=== PATIENT | female | born 1950 | race Caucasian/White ===

== ENCOUNTER 2017-10-14 12:20 | Day surgery (SDC) | payer OTHER ==
[~2017-10-14 12:20] MED LIST: ACET325 PO; ALBU3IS INH; ALBU90OI INH; ALBU90OI6 INH; ALUMINUM HYDROXIDE PO; AMLO5 PO; ASCO250CH PO; ATELVIA; BUME1 PO; BUME2 PO; BUMEX; BUPR150ER PO; CALCAVITD PO; CEFD300 PO; CEPH500; CEPH500 PO; CITA20 PO; CLIN150 PO; CLON.2; CLON.2 PO; CLON.3 PO; CLON.5 PO; CYCL10 PO; Coumadin2.5 MG; DIAZ5 PO; DOCSEN PO; DOCU100 PO; DULO30 PO; DULO60 PO; ENOX120I SUBQ; Effer-K 10 Meq10 MEQ; FENTANYL PATCH TD; FERR325 PO; FISH1000 PO; FLUT.05NI; FOSI10; FOSI10 PO; FURO40 PO; GABA100 PO; GABA300 PO; GAVILAX17 GM PO; GLYB2.5 PO; GLYB5; GLYB5 PO; GUAN1; GUANFACINE; HYDACE10B PO; HYDACE5 PO; INSDET100 SC; INSR10I SUBQ; INSUASPI SC; INSULANI SUBQ; INSULANPEN SQ; IRON150C PO; Keflex500 MG PO; LAVAP17G PO; LEVO750 PO; LEVSOD125 PO; LEVSOD200; LEVSOD200 PO; LORA10 PO; LORA10ER PO; MAALOX PO; MAGOXI400 PO; MECL25 PO; METF500; METF500 PO; METO2.5 PO; METO25ER PO; METPRE4DP PO; MIRT30; MIRT30 PO; MOME220I INH; MONT10T PO; MORP15ER PO; MULVITMIND PO; MULVITMINF PO; Meribin5 MG PO; NABU750; NAPR550 PO; NATE60; Norco 5-325 Ta1 EACH PO; Novolog100 UNIT/2; OMEP20ER PO; ONDA4ODT MM; OXYACE5T PO; PANT40 PO; PIOG15; POLY17UD PO; POTA10T PO; POTA20PAC PO; POTA8; POTCHL10ER PO; POTCHL20ER PO; PRAV20 PO; PRED20 PO; PROAIR INH; PROM25 PO; QVAR INH; QVAR7.3 G1 IH; RANI150 PO; RXHYDACE PO; RXNAPNA550 PO; RXONDA4ODT MM; SPIR25 PO; SULTRIDS PO; Synthroid/Le0.125 MG PO; TEMA15 PO; TENEX PO; TRADJENTA PO; TRADJENTA5 MG PO; TRIHYD253A; WARF10 PO; WARF5 PO; XARELTO20 MG PO
[2018-01-30] MEDS ORDERED: Novolin R100 UNIT/M SC (16:44)
[2018-01-30] MEDS ORDERED: Percocet 5-3251 EACH PO (16:47)
[2018-02-08] MEDS ORDERED: DOCU100 PO (16:03)
[2018-02-08] MEDS ORDERED: ALLO100 PO (16:04)
[2018-02-08] MEDS ORDERED: GAVILAX17 GM PO (16:07)
[2018-02-15] MEDS ORDERED: CITA20 PO (20:46)
[2018-02-15] MEDS ORDERED: BUME1 PO (20:46)
[2018-02-15] MEDS ORDERED: PREG25 PO (20:47)
[2018-02-15] MEDS ORDERED: METO25ER (20:47)
[2018-02-15] MEDS ORDERED: IRON150C (20:47)
[2018-02-15] MEDS ORDERED: LEVSOD125 PO (20:47)
[2018-02-15] MEDS ORDERED: Zantac150 MG PO (20:48)
[2018-02-15] MEDS ORDERED: AMLO10 PO (20:48)
[2018-02-15] MEDS ORDERED: XARELTO15 MG PO (20:48)
[2018-02-15] MEDS ORDERED: ALLO100 (20:48)
[2018-04-12] MEDS ORDERED: TUMS PO (19:59)
[2018-07-21] MEDS ORDERED: Percocet 5-3251 EACH PO (20:03)
[2018-07-21] MEDS ORDERED: Lantus100 UNIT/1 SC (20:04)
[2018-07-21] MEDS ORDERED: TRADJENTA5 MG PO (20:04)
[2018-07-21] MEDS ORDERED: XARELTO20 MG PO (20:04)
[2018-07-21] MEDS ORDERED: LEVSOD125 PO (20:05)
[2018-07-21] MEDS ORDERED: AMLO5 PO (20:05)
[2018-07-21] MEDS ORDERED: BUME2 PO (20:05)
[2018-07-21] MEDS ORDERED: K-Dur20 MEQ PO (20:05)
[2018-07-21] MEDS ORDERED: Celexa40 MG PO (20:06)
[2018-07-21] MEDS ORDERED: PROM25 PO (20:06)
[2018-07-21] MEDS ORDERED: Pantoprazole So40 MG PO (20:06)
[2018-07-21] MEDS ORDERED: METO25ER PO (20:07)
[2018-07-21] MEDS ORDERED: ROPI2 PO (20:08)
[2018-07-21] MEDS ORDERED: CALC.25 PO (20:09)
[2018-07-21] MEDS ORDERED: LACT5TL (20:10)
[2018-07-21] MEDS ORDERED: METO2.5 PO (20:10)
[2018-07-21] MEDS ORDERED: Triamcinolone A15 G3 TP (20:10)
[2018-07-21] MEDS ORDERED: VITAMIN B122500 MC1 PO (20:10)
[2018-07-21] MEDS ORDERED: PREG50 PO (20:11)
[2018-07-21] MEDS ORDERED: ALLO300 PO (20:12)
[2018-07-21] MEDS ORDERED: CLOBET30L (20:12)
[2018-07-21] MEDS ORDERED: Flonase 0.05% N16 GM (20:13)
[2018-07-21] MEDS ORDERED: CLARITIN10 MG PO (20:13)
[2018-07-21] MEDS ORDERED: ALBU90OI6 INH (20:13)
[2018-08-03] MEDS ORDERED: Culturelle1 CAP PO (15:13)
[2018-08-03] MEDS ORDERED: VANC125 PO (15:14)
[2018-08-03] MEDS ORDERED: VANCOMYCIN1.5 GM/250 IV (15:18)
[2018-08-08] MEDS ORDERED: LEVSOD137 PO (12:08)
[2018-08-08] MEDS ORDERED: METO50ER PO (12:09)
[2018-08-08] MEDS ORDERED: XARELTO15 MG PO (12:10)
[2018-08-08] MEDS ORDERED: LOPE2C PO (12:11)
[2018-09-13] MEDS ORDERED: XARELTO20 MG PO (11:51)
== END 2017-10-14 17:16 | disposition home or self-care (01) ==
LOC: WOUND 12:20
DX: Z48.00 Encounter for change or removal of nonsurgical wound dressing (principal); E11.621 Type 2 diabetes mellitus with foot ulcer; E11.21 Type 2 diabetes mellitus with diabetic nephropathy; E11.22 Type 2 diabetes mellitus with diabetic chronic kidney disease; I87.2 Venous insufficiency (chronic) (peripheral); R60.0 Localized edema; I89.0 Lymphedema, not elsewhere classified; G47.30 Sleep apnea, unspecified; I48.91 Unspecified atrial fibrillation
CPT/HCPCS: G0463

== ENCOUNTER 2017-10-16 11:00 | Day surgery (SDC) | payer OTHER ==
[2018-01-30] MEDS ORDERED: Novolin R100 UNIT/M SC (16:44)
[2018-01-30] MEDS ORDERED: Percocet 5-3251 EACH PO (16:47)
[2018-02-08] MEDS ORDERED: DOCU100 PO (16:03)
[2018-02-08] MEDS ORDERED: ALLO100 PO (16:04)
[2018-02-08] MEDS ORDERED: GAVILAX17 GM PO (16:07)
[2018-02-15] MEDS ORDERED: BUME1 PO (20:46)
[2018-02-15] MEDS ORDERED: CITA20 PO (20:46)
[2018-02-15] MEDS ORDERED: PREG25 PO (20:47)
[2018-02-15] MEDS ORDERED: METO25ER (20:47)
[2018-02-15] MEDS ORDERED: LEVSOD125 PO (20:47)
[2018-02-15] MEDS ORDERED: IRON150C (20:47)
[2018-02-15] MEDS ORDERED: XARELTO15 MG PO (20:48)
[2018-02-15] MEDS ORDERED: AMLO10 PO (20:48)
[2018-02-15] MEDS ORDERED: ALLO100 (20:48)
[2018-02-15] MEDS ORDERED: Zantac150 MG PO (20:48)
[2018-04-12] MEDS ORDERED: TUMS PO (19:59)
[2018-07-21] MEDS ORDERED: Percocet 5-3251 EACH PO (20:03)
[2018-07-21] MEDS ORDERED: XARELTO20 MG PO (20:04)
[2018-07-21] MEDS ORDERED: Lantus100 UNIT/1 SC (20:04)
[2018-07-21] MEDS ORDERED: TRADJENTA5 MG PO (20:04)
[2018-07-21] MEDS ORDERED: AMLO5 PO (20:05)
[2018-07-21] MEDS ORDERED: BUME2 PO (20:05)
[2018-07-21] MEDS ORDERED: LEVSOD125 PO (20:05)
[2018-07-21] MEDS ORDERED: K-Dur20 MEQ PO (20:05)
[2018-07-21] MEDS ORDERED: Pantoprazole So40 MG PO (20:06)
[2018-07-21] MEDS ORDERED: PROM25 PO (20:06)
[2018-07-21] MEDS ORDERED: Celexa40 MG PO (20:06)
[2018-07-21] MEDS ORDERED: METO25ER PO (20:07)
[2018-07-21] MEDS ORDERED: ROPI2 PO (20:08)
[2018-07-21] MEDS ORDERED: CALC.25 PO (20:09)
[2018-07-21] MEDS ORDERED: LACT5TL (20:10)
[2018-07-21] MEDS ORDERED: METO2.5 PO (20:10)
[2018-07-21] MEDS ORDERED: Triamcinolone A15 G3 TP (20:10)
[2018-07-21] MEDS ORDERED: VITAMIN B122500 MC1 PO (20:10)
[2018-07-21] MEDS ORDERED: PREG50 PO (20:11)
[2018-07-21] MEDS ORDERED: ALLO300 PO (20:12)
[2018-07-21] MEDS ORDERED: CLOBET30L (20:12)
[2018-07-21] MEDS ORDERED: ALBU90OI6 INH (20:13)
[2018-07-21] MEDS ORDERED: CLARITIN10 MG PO (20:13)
[2018-07-21] MEDS ORDERED: Flonase 0.05% N16 GM (20:13)
[2018-08-03] MEDS ORDERED: Culturelle1 CAP PO (15:13)
[2018-08-03] MEDS ORDERED: VANC125 PO (15:14)
[2018-08-03] MEDS ORDERED: VANCOMYCIN1.5 GM/250 IV (15:18)
[2018-08-08] MEDS ORDERED: LEVSOD137 PO (12:08)
[2018-08-08] MEDS ORDERED: METO50ER PO (12:09)
[2018-08-08] MEDS ORDERED: XARELTO15 MG PO (12:10)
[2018-08-08] MEDS ORDERED: LOPE2C PO (12:11)
[2018-09-13] MEDS ORDERED: XARELTO20 MG PO (11:51)
== END 2017-10-16 17:06 | disposition home or self-care (01) ==
LOC: WOUND
DX: I87.2 Venous insufficiency (chronic) (peripheral) (principal); E11.621 Type 2 diabetes mellitus with foot ulcer; L97.229 Non-pressure chronic ulcer of left calf with unspecified severity; E11.21 Type 2 diabetes mellitus with diabetic nephropathy; R60.0 Localized edema; I89.0 Lymphedema, not elsewhere classified; D64.9 Anemia, unspecified; G47.30 Sleep apnea, unspecified; I82.5Z9 Chronic embolism and thrombosis of unspecified deep veins of unspecified distal lower extremity

== ENCOUNTER 2017-10-20 14:20 | Day surgery (SDC) | payer OTHER ==
[2018-01-30] MEDS ORDERED: Novolin R100 UNIT/M SC (16:44)
[2018-01-30] MEDS ORDERED: Percocet 5-3251 EACH PO (16:47)
[2018-02-08] MEDS ORDERED: DOCU100 PO (16:03)
[2018-02-08] MEDS ORDERED: ALLO100 PO (16:04)
[2018-02-08] MEDS ORDERED: GAVILAX17 GM PO (16:07)
[2018-02-15] MEDS ORDERED: CITA20 PO (20:46)
[2018-02-15] MEDS ORDERED: BUME1 PO (20:46)
[2018-02-15] MEDS ORDERED: IRON150C (20:47)
[2018-02-15] MEDS ORDERED: PREG25 PO (20:47)
[2018-02-15] MEDS ORDERED: LEVSOD125 PO (20:47)
[2018-02-15] MEDS ORDERED: METO25ER (20:47)
[2018-02-15] MEDS ORDERED: ALLO100 (20:48)
[2018-02-15] MEDS ORDERED: XARELTO15 MG PO (20:48)
[2018-02-15] MEDS ORDERED: AMLO10 PO (20:48)
[2018-02-15] MEDS ORDERED: Zantac150 MG PO (20:48)
[2018-04-12] MEDS ORDERED: TUMS PO (19:59)
[2018-07-21] MEDS ORDERED: Percocet 5-3251 EACH PO (20:03)
[2018-07-21] MEDS ORDERED: Lantus100 UNIT/1 SC (20:04)
[2018-07-21] MEDS ORDERED: TRADJENTA5 MG PO (20:04)
[2018-07-21] MEDS ORDERED: XARELTO20 MG PO (20:04)
[2018-07-21] MEDS ORDERED: K-Dur20 MEQ PO (20:05)
[2018-07-21] MEDS ORDERED: AMLO5 PO (20:05)
[2018-07-21] MEDS ORDERED: BUME2 PO (20:05)
[2018-07-21] MEDS ORDERED: LEVSOD125 PO (20:05)
[2018-07-21] MEDS ORDERED: Pantoprazole So40 MG PO (20:06)
[2018-07-21] MEDS ORDERED: PROM25 PO (20:06)
[2018-07-21] MEDS ORDERED: Celexa40 MG PO (20:06)
[2018-07-21] MEDS ORDERED: METO25ER PO (20:07)
[2018-07-21] MEDS ORDERED: ROPI2 PO (20:08)
[2018-07-21] MEDS ORDERED: CALC.25 PO (20:09)
[2018-07-21] MEDS ORDERED: LACT5TL (20:10)
[2018-07-21] MEDS ORDERED: VITAMIN B122500 MC1 PO (20:10)
[2018-07-21] MEDS ORDERED: METO2.5 PO (20:10)
[2018-07-21] MEDS ORDERED: Triamcinolone A15 G3 TP (20:10)
[2018-07-21] MEDS ORDERED: PREG50 PO (20:11)
[2018-07-21] MEDS ORDERED: CLOBET30L (20:12)
[2018-07-21] MEDS ORDERED: ALLO300 PO (20:12)
[2018-07-21] MEDS ORDERED: ALBU90OI6 INH (20:13)
[2018-07-21] MEDS ORDERED: CLARITIN10 MG PO (20:13)
[2018-07-21] MEDS ORDERED: Flonase 0.05% N16 GM (20:13)
[2018-08-03] MEDS ORDERED: Culturelle1 CAP PO (15:13)
[2018-08-03] MEDS ORDERED: VANC125 PO (15:14)
[2018-08-03] MEDS ORDERED: VANCOMYCIN1.5 GM/250 IV (15:18)
[2018-08-08] MEDS ORDERED: LEVSOD137 PO (12:08)
[2018-08-08] MEDS ORDERED: METO50ER PO (12:09)
[2018-08-08] MEDS ORDERED: XARELTO15 MG PO (12:10)
[2018-08-08] MEDS ORDERED: LOPE2C PO (12:11)
[2018-09-13] MEDS ORDERED: XARELTO20 MG PO (11:51)
== END 2017-10-20 15:57 | disposition home or self-care (01) ==
LOC: WOUND 14:20
PROC: 2W1RX6Z Compression of Left Lower Leg using Pressure Dressing (ICD-10-PCS; principal; 2017-10-20)
DX: Z48.00 Encounter for change or removal of nonsurgical wound dressing (principal); E11.621 Type 2 diabetes mellitus with foot ulcer; I87.2 Venous insufficiency (chronic) (peripheral); I82.5Z1 Chronic embolism and thrombosis of unspecified deep veins of right distal lower extremity; I89.0 Lymphedema, not elsewhere classified; D64.9 Anemia, unspecified; G47.30 Sleep apnea, unspecified; I48.91 Unspecified atrial fibrillation; E11.21 Type 2 diabetes mellitus with diabetic nephropathy; R60.0 Localized edema; E11.622 Type 2 diabetes mellitus with other skin ulcer; L97.821 Non-pressure chronic ulcer of other part of left lower leg limited to breakdown of skin; L97.819 Non-pressure chronic ulcer of other part of right lower leg with unspecified severity; L97.529 Non-pressure chronic ulcer of other part of left foot with unspecified severity
CPT/HCPCS: G0463

== ENCOUNTER 2017-10-27 08:40 | Day surgery (SDC) | payer OTHER ==
[2018-01-30] MEDS ORDERED: Novolin R100 UNIT/M SC (16:44)
[2018-01-30] MEDS ORDERED: Percocet 5-3251 EACH PO (16:47)
[2018-02-08] MEDS ORDERED: DOCU100 PO (16:03)
[2018-02-08] MEDS ORDERED: ALLO100 PO (16:04)
[2018-02-08] MEDS ORDERED: GAVILAX17 GM PO (16:07)
[2018-02-15] MEDS ORDERED: CITA20 PO (20:46)
[2018-02-15] MEDS ORDERED: BUME1 PO (20:46)
[2018-02-15] MEDS ORDERED: IRON150C (20:47)
[2018-02-15] MEDS ORDERED: PREG25 PO (20:47)
[2018-02-15] MEDS ORDERED: LEVSOD125 PO (20:47)
[2018-02-15] MEDS ORDERED: METO25ER (20:47)
[2018-02-15] MEDS ORDERED: XARELTO15 MG PO (20:48)
[2018-02-15] MEDS ORDERED: AMLO10 PO (20:48)
[2018-02-15] MEDS ORDERED: ALLO100 (20:48)
[2018-02-15] MEDS ORDERED: Zantac150 MG PO (20:48)
[2018-04-12] MEDS ORDERED: TUMS PO (19:59)
[2018-07-21] MEDS ORDERED: Percocet 5-3251 EACH PO (20:03)
[2018-07-21] MEDS ORDERED: Lantus100 UNIT/1 SC (20:04)
[2018-07-21] MEDS ORDERED: TRADJENTA5 MG PO (20:04)
[2018-07-21] MEDS ORDERED: XARELTO20 MG PO (20:04)
[2018-07-21] MEDS ORDERED: AMLO5 PO (20:05)
[2018-07-21] MEDS ORDERED: LEVSOD125 PO (20:05)
[2018-07-21] MEDS ORDERED: BUME2 PO (20:05)
[2018-07-21] MEDS ORDERED: K-Dur20 MEQ PO (20:05)
[2018-07-21] MEDS ORDERED: PROM25 PO (20:06)
[2018-07-21] MEDS ORDERED: Pantoprazole So40 MG PO (20:06)
[2018-07-21] MEDS ORDERED: Celexa40 MG PO (20:06)
[2018-07-21] MEDS ORDERED: METO25ER PO (20:07)
[2018-07-21] MEDS ORDERED: ROPI2 PO (20:08)
[2018-07-21] MEDS ORDERED: CALC.25 PO (20:09)
[2018-07-21] MEDS ORDERED: METO2.5 PO (20:10)
[2018-07-21] MEDS ORDERED: Triamcinolone A15 G3 TP (20:10)
[2018-07-21] MEDS ORDERED: VITAMIN B122500 MC1 PO (20:10)
[2018-07-21] MEDS ORDERED: LACT5TL (20:10)
[2018-07-21] MEDS ORDERED: PREG50 PO (20:11)
[2018-07-21] MEDS ORDERED: ALLO300 PO (20:12)
[2018-07-21] MEDS ORDERED: CLOBET30L (20:12)
[2018-07-21] MEDS ORDERED: Flonase 0.05% N16 GM (20:13)
[2018-07-21] MEDS ORDERED: ALBU90OI6 INH (20:13)
[2018-07-21] MEDS ORDERED: CLARITIN10 MG PO (20:13)
[2018-08-03] MEDS ORDERED: Culturelle1 CAP PO (15:13)
[2018-08-03] MEDS ORDERED: VANC125 PO (15:14)
[2018-08-03] MEDS ORDERED: VANCOMYCIN1.5 GM/250 IV (15:18)
[2018-08-08] MEDS ORDERED: LEVSOD137 PO (12:08)
[2018-08-08] MEDS ORDERED: METO50ER PO (12:09)
[2018-08-08] MEDS ORDERED: XARELTO15 MG PO (12:10)
[2018-08-08] MEDS ORDERED: LOPE2C PO (12:11)
[2018-09-13] MEDS ORDERED: XARELTO20 MG PO (11:51)
== END 2017-10-27 11:03 | disposition home or self-care (01) ==
LOC: WOUND 08:40
PROC: 2W1RX6Z Compression of Left Lower Leg using Pressure Dressing (ICD-10-PCS; principal; 2017-10-27)
DX: Z48.00 Encounter for change or removal of nonsurgical wound dressing (principal); I87.2 Venous insufficiency (chronic) (peripheral); E11.22 Type 2 diabetes mellitus with diabetic chronic kidney disease; E11.621 Type 2 diabetes mellitus with foot ulcer; E11.21 Type 2 diabetes mellitus with diabetic nephropathy; R60.0 Localized edema; I89.0 Lymphedema, not elsewhere classified; G47.30 Sleep apnea, unspecified; I48.91 Unspecified atrial fibrillation
CPT/HCPCS: G0463

== ENCOUNTER 2017-11-10 07:57 | Day surgery (SDC) | payer OTHER ==
[2018-01-30] MEDS ORDERED: Novolin R100 UNIT/M SC (16:44)
[2018-01-30] MEDS ORDERED: Percocet 5-3251 EACH PO (16:47)
[2018-02-08] MEDS ORDERED: DOCU100 PO (16:03)
[2018-02-08] MEDS ORDERED: ALLO100 PO (16:04)
[2018-02-08] MEDS ORDERED: GAVILAX17 GM PO (16:07)
[2018-02-15] MEDS ORDERED: BUME1 PO (20:46)
[2018-02-15] MEDS ORDERED: CITA20 PO (20:46)
[2018-02-15] MEDS ORDERED: METO25ER (20:47)
[2018-02-15] MEDS ORDERED: IRON150C (20:47)
[2018-02-15] MEDS ORDERED: PREG25 PO (20:47)
[2018-02-15] MEDS ORDERED: LEVSOD125 PO (20:47)
[2018-02-15] MEDS ORDERED: Zantac150 MG PO (20:48)
[2018-02-15] MEDS ORDERED: ALLO100 (20:48)
[2018-02-15] MEDS ORDERED: AMLO10 PO (20:48)
[2018-02-15] MEDS ORDERED: XARELTO15 MG PO (20:48)
[2018-04-12] MEDS ORDERED: TUMS PO (19:59)
[2018-07-21] MEDS ORDERED: Percocet 5-3251 EACH PO (20:03)
[2018-07-21] MEDS ORDERED: XARELTO20 MG PO (20:04)
[2018-07-21] MEDS ORDERED: Lantus100 UNIT/1 SC (20:04)
[2018-07-21] MEDS ORDERED: TRADJENTA5 MG PO (20:04)
[2018-07-21] MEDS ORDERED: AMLO5 PO (20:05)
[2018-07-21] MEDS ORDERED: BUME2 PO (20:05)
[2018-07-21] MEDS ORDERED: K-Dur20 MEQ PO (20:05)
[2018-07-21] MEDS ORDERED: LEVSOD125 PO (20:05)
[2018-07-21] MEDS ORDERED: Pantoprazole So40 MG PO (20:06)
[2018-07-21] MEDS ORDERED: PROM25 PO (20:06)
[2018-07-21] MEDS ORDERED: Celexa40 MG PO (20:06)
[2018-07-21] MEDS ORDERED: METO25ER PO (20:07)
[2018-07-21] MEDS ORDERED: ROPI2 PO (20:08)
[2018-07-21] MEDS ORDERED: CALC.25 PO (20:09)
[2018-07-21] MEDS ORDERED: VITAMIN B122500 MC1 PO (20:10)
[2018-07-21] MEDS ORDERED: LACT5TL (20:10)
[2018-07-21] MEDS ORDERED: Triamcinolone A15 G3 TP (20:10)
[2018-07-21] MEDS ORDERED: METO2.5 PO (20:10)
[2018-07-21] MEDS ORDERED: PREG50 PO (20:11)
[2018-07-21] MEDS ORDERED: ALLO300 PO (20:12)
[2018-07-21] MEDS ORDERED: CLOBET30L (20:12)
[2018-07-21] MEDS ORDERED: CLARITIN10 MG PO (20:13)
[2018-07-21] MEDS ORDERED: ALBU90OI6 INH (20:13)
[2018-07-21] MEDS ORDERED: Flonase 0.05% N16 GM (20:13)
[2018-08-03] MEDS ORDERED: Culturelle1 CAP PO (15:13)
[2018-08-03] MEDS ORDERED: VANC125 PO (15:14)
[2018-08-03] MEDS ORDERED: VANCOMYCIN1.5 GM/250 IV (15:18)
[2018-08-08] MEDS ORDERED: LEVSOD137 PO (12:08)
[2018-08-08] MEDS ORDERED: METO50ER PO (12:09)
[2018-08-08] MEDS ORDERED: XARELTO15 MG PO (12:10)
[2018-08-08] MEDS ORDERED: LOPE2C PO (12:11)
[2018-09-13] MEDS ORDERED: XARELTO20 MG PO (11:51)
== END 2017-11-10 23:02 | disposition home or self-care (01) ==
LOC: WOUND 07:57
DX: Z48.00 Encounter for change or removal of nonsurgical wound dressing (principal); I87.2 Venous insufficiency (chronic) (peripheral); E11.22 Type 2 diabetes mellitus with diabetic chronic kidney disease; E11.621 Type 2 diabetes mellitus with foot ulcer; E11.21 Type 2 diabetes mellitus with diabetic nephropathy; R60.0 Localized edema; I89.0 Lymphedema, not elsewhere classified; I48.91 Unspecified atrial fibrillation; G47.30 Sleep apnea, unspecified; D64.9 Anemia, unspecified
CPT/HCPCS: G0463

== ENCOUNTER 2017-11-13 00:48 | Day surgery (SDC) | payer OTHER ==
[2018-01-30] MEDS ORDERED: Novolin R100 UNIT/M SC (16:44)
[2018-01-30] MEDS ORDERED: Percocet 5-3251 EACH PO (16:47)
[2018-02-08] MEDS ORDERED: DOCU100 PO (16:03)
[2018-02-08] MEDS ORDERED: ALLO100 PO (16:04)
[2018-02-08] MEDS ORDERED: GAVILAX17 GM PO (16:07)
[2018-02-15] MEDS ORDERED: CITA20 PO (20:46)
[2018-02-15] MEDS ORDERED: BUME1 PO (20:46)
[2018-02-15] MEDS ORDERED: LEVSOD125 PO (20:47)
[2018-02-15] MEDS ORDERED: PREG25 PO (20:47)
[2018-02-15] MEDS ORDERED: METO25ER (20:47)
[2018-02-15] MEDS ORDERED: IRON150C (20:47)
[2018-02-15] MEDS ORDERED: ALLO100 (20:48)
[2018-02-15] MEDS ORDERED: Zantac150 MG PO (20:48)
[2018-02-15] MEDS ORDERED: XARELTO15 MG PO (20:48)
[2018-02-15] MEDS ORDERED: AMLO10 PO (20:48)
[2018-04-12] MEDS ORDERED: TUMS PO (19:59)
[2018-07-21] MEDS ORDERED: Percocet 5-3251 EACH PO (20:03)
[2018-07-21] MEDS ORDERED: TRADJENTA5 MG PO (20:04)
[2018-07-21] MEDS ORDERED: Lantus100 UNIT/1 SC (20:04)
[2018-07-21] MEDS ORDERED: XARELTO20 MG PO (20:04)
[2018-07-21] MEDS ORDERED: AMLO5 PO (20:05)
[2018-07-21] MEDS ORDERED: BUME2 PO (20:05)
[2018-07-21] MEDS ORDERED: K-Dur20 MEQ PO (20:05)
[2018-07-21] MEDS ORDERED: LEVSOD125 PO (20:05)
[2018-07-21] MEDS ORDERED: PROM25 PO (20:06)
[2018-07-21] MEDS ORDERED: Celexa40 MG PO (20:06)
[2018-07-21] MEDS ORDERED: Pantoprazole So40 MG PO (20:06)
[2018-07-21] MEDS ORDERED: METO25ER PO (20:07)
[2018-07-21] MEDS ORDERED: ROPI2 PO (20:08)
[2018-07-21] MEDS ORDERED: CALC.25 PO (20:09)
[2018-07-21] MEDS ORDERED: Triamcinolone A15 G3 TP (20:10)
[2018-07-21] MEDS ORDERED: VITAMIN B122500 MC1 PO (20:10)
[2018-07-21] MEDS ORDERED: METO2.5 PO (20:10)
[2018-07-21] MEDS ORDERED: LACT5TL (20:10)
[2018-07-21] MEDS ORDERED: PREG50 PO (20:11)
[2018-07-21] MEDS ORDERED: CLOBET30L (20:12)
[2018-07-21] MEDS ORDERED: ALLO300 PO (20:12)
[2018-07-21] MEDS ORDERED: CLARITIN10 MG PO (20:13)
[2018-07-21] MEDS ORDERED: ALBU90OI6 INH (20:13)
[2018-07-21] MEDS ORDERED: Flonase 0.05% N16 GM (20:13)
[2018-08-03] MEDS ORDERED: Culturelle1 CAP PO (15:13)
[2018-08-03] MEDS ORDERED: VANC125 PO (15:14)
[2018-08-03] MEDS ORDERED: VANCOMYCIN1.5 GM/250 IV (15:18)
[2018-08-08] MEDS ORDERED: LEVSOD137 PO (12:08)
[2018-08-08] MEDS ORDERED: METO50ER PO (12:09)
[2018-08-08] MEDS ORDERED: XARELTO15 MG PO (12:10)
[2018-08-08] MEDS ORDERED: LOPE2C PO (12:11)
[2018-09-13] MEDS ORDERED: XARELTO20 MG PO (11:51)
== END 2017-11-13 23:19 | disposition home or self-care (01) ==
LOC: WOUND 00:48
PROC: 2W1RX6Z Compression of Left Lower Leg using Pressure Dressing (ICD-10-PCS; principal; 2017-11-13)
DX: Z48.00 Encounter for change or removal of nonsurgical wound dressing (principal); I87.2 Venous insufficiency (chronic) (peripheral); E11.621 Type 2 diabetes mellitus with foot ulcer; E11.21 Type 2 diabetes mellitus with diabetic nephropathy; E11.22 Type 2 diabetes mellitus with diabetic chronic kidney disease; R60.0 Localized edema; I89.0 Lymphedema, not elsewhere classified; G47.30 Sleep apnea, unspecified; I48.91 Unspecified atrial fibrillation

== ENCOUNTER 2017-11-17 00:59 | Day surgery (SDC) | payer OTHER ==
[2018-01-30] MEDS ORDERED: Novolin R100 UNIT/M SC (16:44)
[2018-01-30] MEDS ORDERED: Percocet 5-3251 EACH PO (16:47)
[2018-02-08] MEDS ORDERED: DOCU100 PO (16:03)
[2018-02-08] MEDS ORDERED: ALLO100 PO (16:04)
[2018-02-08] MEDS ORDERED: GAVILAX17 GM PO (16:07)
[2018-02-15] MEDS ORDERED: CITA20 PO (20:46)
[2018-02-15] MEDS ORDERED: BUME1 PO (20:46)
[2018-02-15] MEDS ORDERED: PREG25 PO (20:47)
[2018-02-15] MEDS ORDERED: IRON150C (20:47)
[2018-02-15] MEDS ORDERED: METO25ER (20:47)
[2018-02-15] MEDS ORDERED: LEVSOD125 PO (20:47)
[2018-02-15] MEDS ORDERED: Zantac150 MG PO (20:48)
[2018-02-15] MEDS ORDERED: XARELTO15 MG PO (20:48)
[2018-02-15] MEDS ORDERED: AMLO10 PO (20:48)
[2018-02-15] MEDS ORDERED: ALLO100 (20:48)
[2018-04-12] MEDS ORDERED: TUMS PO (19:59)
[2018-07-21] MEDS ORDERED: Percocet 5-3251 EACH PO (20:03)
[2018-07-21] MEDS ORDERED: XARELTO20 MG PO (20:04)
[2018-07-21] MEDS ORDERED: TRADJENTA5 MG PO (20:04)
[2018-07-21] MEDS ORDERED: Lantus100 UNIT/1 SC (20:04)
[2018-07-21] MEDS ORDERED: LEVSOD125 PO (20:05)
[2018-07-21] MEDS ORDERED: AMLO5 PO (20:05)
[2018-07-21] MEDS ORDERED: K-Dur20 MEQ PO (20:05)
[2018-07-21] MEDS ORDERED: BUME2 PO (20:05)
[2018-07-21] MEDS ORDERED: Celexa40 MG PO (20:06)
[2018-07-21] MEDS ORDERED: PROM25 PO (20:06)
[2018-07-21] MEDS ORDERED: Pantoprazole So40 MG PO (20:06)
[2018-07-21] MEDS ORDERED: METO25ER PO (20:07)
[2018-07-21] MEDS ORDERED: ROPI2 PO (20:08)
[2018-07-21] MEDS ORDERED: CALC.25 PO (20:09)
[2018-07-21] MEDS ORDERED: LACT5TL (20:10)
[2018-07-21] MEDS ORDERED: METO2.5 PO (20:10)
[2018-07-21] MEDS ORDERED: Triamcinolone A15 G3 TP (20:10)
[2018-07-21] MEDS ORDERED: VITAMIN B122500 MC1 PO (20:10)
[2018-07-21] MEDS ORDERED: PREG50 PO (20:11)
[2018-07-21] MEDS ORDERED: CLOBET30L (20:12)
[2018-07-21] MEDS ORDERED: ALLO300 PO (20:12)
[2018-07-21] MEDS ORDERED: Flonase 0.05% N16 GM (20:13)
[2018-07-21] MEDS ORDERED: CLARITIN10 MG PO (20:13)
[2018-07-21] MEDS ORDERED: ALBU90OI6 INH (20:13)
[2018-08-03] MEDS ORDERED: Culturelle1 CAP PO (15:13)
[2018-08-03] MEDS ORDERED: VANC125 PO (15:14)
[2018-08-03] MEDS ORDERED: VANCOMYCIN1.5 GM/250 IV (15:18)
[2018-08-08] MEDS ORDERED: LEVSOD137 PO (12:08)
[2018-08-08] MEDS ORDERED: METO50ER PO (12:09)
[2018-08-08] MEDS ORDERED: XARELTO15 MG PO (12:10)
[2018-08-08] MEDS ORDERED: LOPE2C PO (12:11)
[2018-09-13] MEDS ORDERED: XARELTO20 MG PO (11:51)
== END 2017-11-17 10:17 | disposition home or self-care (01) ==
LOC: WOUND 00:59
DX: Z48.00 Encounter for change or removal of nonsurgical wound dressing (principal); I87.2 Venous insufficiency (chronic) (peripheral); E11.621 Type 2 diabetes mellitus with foot ulcer; E11.22 Type 2 diabetes mellitus with diabetic chronic kidney disease; E11.21 Type 2 diabetes mellitus with diabetic nephropathy; R60.0 Localized edema; I89.0 Lymphedema, not elsewhere classified; I83.012 Varicose veins of right lower extremity with ulcer of calf; I83.022 Varicose veins of left lower extremity with ulcer of calf; L97.219 Non-pressure chronic ulcer of right calf with unspecified severity; L97.229 Non-pressure chronic ulcer of left calf with unspecified severity; D64.9 Anemia, unspecified; G47.30 Sleep apnea, unspecified; I48.91 Unspecified atrial fibrillation
CPT/HCPCS: G0463

== ENCOUNTER → 2017-12-15 | Outpatient (CLI) | payer OTHER ==
[~2017-12-15] MED LIST changes: +ALLO100; +ALLO100 PO; +ALLO300 PO; +AMLO10 PO; +Bactrim Ds Tab1 EACH PO; +CALC.25 PO; +CEFP200 PO; +CLARITIN10 MG PO; +CLOBET30L; +COLCHICINE0.6 MG; +CYAN500 PO; +Celexa40 MG PO; +Citalopram HBr40 MG PO; +Culturelle1 CAP PO; +DOXY100 PO; +EMU-LAC HYDRAT120 ML TOP; +FERSU90EL; +FURO20 PO; +Flonase 0.05% N16 GM; +INSDET100; +INSULANPEN SC; +IRON150C; +K-Dur20 MEQ PO; +KLOR-CON SPRIN10 MEQ PO; +LACT5TL; +LEVFLO250; +LEVSOD137 PO; +LOPE2C PO; +Lantus100 UNIT/1 SC; +METO25ER; +METO50ER PO; +NYSTRIT TOP; +Novolin R100 UNIT/M SC; +Nyamyc15 GM TOP; +OXYC1TAB11 PO; +Oxycodone-Apap1 EAC3 PO; +PRED20; +PRED5; +PREG25 PO; +PREG50 PO; +Pantoprazole So40 MG PO; +Percocet 5-3251 EACH PO; +ROPI2 PO; +Ranitidine HCl150 M1; +Ropinirole HCl3 MG PO; +TAMS.4ER PO; +TRAM50 PO; +TRIA15CR3 TOP; +TUMS PO; +Toprol Xl50 MG PO; +Triamcinolone A15 G3 TP; +VANC125 PO; +VANCOMYCIN1.5 GM/250 IV; +VITAMIN B122500 MC1 PO; +XARELTO15 MG PO; +Zantac150 MG PO
[2017-12-15 17:20] LABS: Percent Saturation 9.2 % (15.0-50.0)
== END ==
LOC: LAB 12:00
PROVIDERS: Internal Medicine Hematology & Oncology
DX: D50.9 Iron deficiency anemia, unspecified (principal)
CPT/HCPCS: 82728; 83540; 83550

== ENCOUNTER 2018-01-20 17:49 | Inpatient (IN) | payer OTHER ==
[~2018-01-20] VITALS: Ht 165.1 cm; Wt 132.4 kg
[~2018-01-20 17:49] MED LIST changes: +ALBU90OI61 INH; -ALLO100; -ALLO100 PO; -ALLO300 PO; -AMLO10 PO; +BUME1; -BUME1 PO; -Bactrim Ds Tab1 EACH PO; -CALC.25 PO; -CEFP200 PO; -CLARITIN10 MG PO; -CLOBET30L; -COLCHICINE0.6 MG; -CYAN500 PO; -Celexa40 MG PO; -Citalopram HBr40 MG PO; -Culturelle1 CAP PO; -DOXY100 PO; -EMU-LAC HYDRAT120 ML TOP; -FERSU90EL; -FURO20 PO; -Flonase 0.05% N16 GM; -INSDET100; -INSULANPEN SC; -IRON150C; -K-Dur20 MEQ PO; -KLOR-CON SPRIN10 MEQ PO; -LACT5TL; -LEVFLO250; -LEVSOD137 PO; -LOPE2C PO; -Lantus100 UNIT/1 SC; -METO25ER; -METO50ER PO; -NYSTRIT TOP; -Novolin R100 UNIT/M SC; -Nyamyc15 GM TOP; -OXYC1TAB11 PO; -Oxycodone-Apap1 EAC3 PO; -PRED20; -PRED5; -PREG25 PO; -PREG50 PO; -Pantoprazole So40 MG PO; -Percocet 5-3251 EACH PO; -ROPI2 PO; -Ranitidine HCl150 M1; -Ropinirole HCl3 MG PO; -TAMS.4ER PO; -TRAM50 PO; -TRIA15CR3 TOP; -TUMS PO; -Toprol Xl50 MG PO; -Triamcinolone A15 G3 TP; -VANC125 PO; -VANCOMYCIN1.5 GM/250 IV; -VITAMIN B122500 MC1 PO; -XARELTO15 MG PO; -Zantac150 MG PO
[2018-01-20 18:53] LABS: BASOPHILS ABSOLUTE AUTO 0.03 K/mm3 (0.00-0.23); BASOPHILS PERCENT AUTO 0 % (0-2); EOSINOPHILS ABSOLUTE AUTO 0.11 K/mm3 (0.00-0.68); EOSINOPHILS PERCENT AUTO 1 % (0-6); Hematocrit 37.4 % (33.0-51.0); Hemoglobin 10.9 g/dL (11.5-16.0); IMMATURE GRAN ABSOLUTE AUTO 0.08 K/mm3 (0.00-0.10); IMMATURE GRAN PERCENT AUTO 1 % (0-1); LYMPHOCYTES ABSOLUTE AUTO 0.65 K/mm3 (0.84-5.20); LYMPHOCYTES PERCENT AUTO 6 % (21-46); MONOCYTES ABSOLUTE AUTO 0.53 K/mm3 (0.16-1.47); MONOCYTES PERCENT AUTO 5 % (4-13); Mean Corpuscular HGB 24.1 pg (26.0-34.0); Mean Corpuscular HGB Conc 29.1 g/dL (31.5-36.5); Mean Corpuscular Volume 83 fL (80-100); Mean Platelet Volume 10.6 fL (9.1-12.4); NEUTROPHILS ABSOLUTE AUTO 8.92 K/mm3 (1.96-9.15); NEUTROPHILS PERCENT AUTO 86 % (41-73); NRBC ABSOLUTE 0.11 K/mm3 (0.00-0.02); NRBC Auto 1.1 /100 WBC (0.0-0.2); Platelet Count 339 K/mm3 (150-400); RDW Coefficient Variation 20.4 % (11.7-14.2); RDW Standard Deviation 60.8 fL (35.1-46.3); Red Blood Cell Count 4.52 M/mm3 (3.80-5.20); White Blood Cell Count 10.32 K/mm3 (4.00-11.30)
[2018-01-20 19:24] LABS: Troponin I 0.015 ng/mL (0.000-0.040)
[2018-01-20 19:27] LABS: Albumin, Blood 1.8 g/dL (3.4-5.0); Albumin/Globulin Ratio 0.4 (0.8-1.8); Bilirubin, Total 0.3 mg/dL (0.1-1.0); Bun/Creatinine Ratio 45.6 (12.0-20.0); Calcium, Blood 5.9 mg/dL (8.5-10.1); Creatinine, Blood 2.48 mg/dL (0.40-1.00); Globulin, Blood 5.1 g/dL (2.2-4.0); Potassium, Blood 3.5 mmol/L (3.5-5.5); Total Protein, Blood 6.9 g/dL (6.4-8.2)
[2018-01-20] MEDS ORDERED: PREG50 PO (20:50)
[2018-01-20] MEDS ORDERED: Ropinirole HCl3 MG PO (20:51)
[2018-01-20] MEDS ORDERED: TRADJENTA5 MG PO (23:24)
[2018-01-20] MEDS ORDERED: AMLO5 PO (23:28)
[2018-01-20] MEDS ORDERED: ALLO100 PO (23:29)
[2018-01-20] MEDS ORDERED: Citalopram HBr40 MG PO (23:31)
[2018-01-20] MEDS ORDERED: Nyamyc15 GM TOP (23:35)
[2018-01-21 01:29] LABS: Source, Urine Clean Catch
[2018-01-21 01:31] LABS: Bilirubin, Urine Neg (Neg); Blood, Urine Neg (Neg); Glucose Qualitative, Urine Neg (Neg); Ketones, Urine Neg (Neg); Leukocyte Esterase, Urine Neg (Neg); Nitrite, Urine Neg (Neg); Protein, Urine 1+ (Neg); Specific Gravity, Urine 1.015 (1.003-1.022); Urobilinogen, Urine NORM (Normal)
[2018-01-21 01:37] LABS: Appearance, Urine Clear (Clear); Color, Urine Yellow (P-Yellow)
[2018-01-21 05:12] LABS: BASOPHILS ABSOLUTE AUTO 0.03 K/mm3 (0.00-0.23); BASOPHILS PERCENT AUTO 0 % (0-2); EOSINOPHILS PERCENT AUTO 1 % (0-6); Hematocrit 35.7 % (33.0-51.0); Hemoglobin 10.4 g/dL (11.5-16.0); IMMATURE GRAN ABSOLUTE AUTO 0.07 K/mm3 (0.00-0.10); IMMATURE GRAN PERCENT AUTO 1 % (0-1); LYMPHOCYTES ABSOLUTE AUTO 0.92 K/mm3 (0.84-5.20); LYMPHOCYTES PERCENT AUTO 11 % (21-46); MONOCYTES ABSOLUTE AUTO 0.59 K/mm3 (0.16-1.47); MONOCYTES PERCENT AUTO 7 % (4-13); Mean Corpuscular HGB 23.9 pg (26.0-34.0); Mean Corpuscular HGB Conc 29.1 g/dL (31.5-36.5); Mean Corpuscular Volume 82 fL (80-100); Mean Platelet Volume 11.2 fL (9.1-12.4); NEUTROPHILS ABSOLUTE AUTO 6.55 K/mm3 (1.96-9.15); NEUTROPHILS PERCENT AUTO 79 % (41-73); NRBC ABSOLUTE 0.09 K/mm3 (0.00-0.02); NRBC Auto 1.1 /100 WBC (0.0-0.2); Platelet Count 315 K/mm3 (150-400); RDW Coefficient Variation 20.2 % (11.7-14.2); RDW Standard Deviation 59.7 fL (35.1-46.3); Red Blood Cell Count 4.35 M/mm3 (3.80-5.20); White Blood Cell Count 8.26 K/mm3 (4.00-11.30)
[2018-01-21 05:55] LABS: Bun/Creatinine Ratio 52.4 (12.0-20.0); Calcium, Blood 6.1 mg/dL (8.5-10.1); Creatinine, Blood 2.08 mg/dL (0.40-1.00)
[2018-01-21 20:36] LABS: Vancomycin, Trough 11.8 ug/mL (5.0-10.0)
[2018-01-22 04:57] LABS: BASOPHILS ABSOLUTE AUTO 0.05 K/mm3 (0.00-0.23); BASOPHILS PERCENT AUTO 0 % (0-2); EOSINOPHILS ABSOLUTE AUTO 0.15 K/mm3 (0.00-0.68); EOSINOPHILS PERCENT AUTO 1 % (0-6); Hematocrit 36.1 % (33.0-51.0); Hemoglobin 10.3 g/dL (11.5-16.0); IMMATURE GRAN ABSOLUTE AUTO 0.08 K/mm3 (0.00-0.10); IMMATURE GRAN PERCENT AUTO 1 % (0-1); LYMPHOCYTES ABSOLUTE AUTO 0.85 K/mm3 (0.84-5.20); LYMPHOCYTES PERCENT AUTO 7 % (21-46); MONOCYTES ABSOLUTE AUTO 1.26 K/mm3 (0.16-1.47); MONOCYTES PERCENT AUTO 11 % (4-13); Mean Corpuscular HGB 23.7 pg (26.0-34.0); Mean Corpuscular HGB Conc 28.5 g/dL (31.5-36.5); Mean Corpuscular Volume 83 fL (80-100); NEUTROPHILS ABSOLUTE AUTO 9.13 K/mm3 (1.96-9.15); NEUTROPHILS PERCENT AUTO 79 % (41-73); NRBC ABSOLUTE 0.07 K/mm3 (0.00-0.02); NRBC Auto 0.6 /100 WBC (0.0-0.2); Platelet Count 313 K/mm3 (150-400); RDW Standard Deviation 60.9 fL (35.1-46.3); Red Blood Cell Count 4.35 M/mm3 (3.80-5.20); White Blood Cell Count 11.52 K/mm3 (4.00-11.30)
[2018-01-22 05:33] LABS: Bun/Creatinine Ratio 53.9 (12.0-20.0); Calcium, Blood 5.8 mg/dL (8.5-10.1); Creatinine, Blood 1.78 mg/dL (0.40-1.00); Potassium, Blood 3.7 mmol/L (3.5-5.5)
[2018-01-22 12:32] LABS: Albumin, Blood 1.6 g/dL (3.4-5.0); Albumin/Globulin Ratio 0.3 (0.8-1.8); Bilirubin, Total 0.3 mg/dL (0.1-1.0); Bun/Creatinine Ratio 54.1 (12.0-20.0); Calcium, Blood 5.7 mg/dL (8.5-10.1); Creatinine, Blood 1.81 mg/dL (0.40-1.00); Potassium, Blood 3.7 mmol/L (3.5-5.5); Total Protein, Blood 6.6 g/dL (6.4-8.2)
[2018-01-23 05:22] LABS: BASOPHILS ABSOLUTE AUTO 0.05 K/mm3 (0.00-0.23); BASOPHILS PERCENT AUTO 0 % (0-2); EOSINOPHILS ABSOLUTE AUTO 0.26 K/mm3 (0.00-0.68); EOSINOPHILS PERCENT AUTO 2 % (0-6); Hematocrit 34.2 % (33.0-51.0); Hemoglobin 9.8 g/dL (11.5-16.0); IMMATURE GRAN PERCENT AUTO 1 % (0-1); LYMPHOCYTES ABSOLUTE AUTO 0.88 K/mm3 (0.84-5.20); LYMPHOCYTES PERCENT AUTO 6 % (21-46); MONOCYTES ABSOLUTE AUTO 1.28 K/mm3 (0.16-1.47); MONOCYTES PERCENT AUTO 9 % (4-13); Mean Corpuscular HGB 23.5 pg (26.0-34.0); Mean Corpuscular HGB Conc 28.7 g/dL (31.5-36.5); Mean Corpuscular Volume 82 fL (80-100); Mean Platelet Volume 11.2 fL (9.1-12.4); NEUTROPHILS ABSOLUTE AUTO 12.45 K/mm3 (1.96-9.15); NEUTROPHILS PERCENT AUTO 83 % (41-73); NRBC ABSOLUTE 0.05 K/mm3 (0.00-0.02); NRBC Auto 0.3 /100 WBC (0.0-0.2); Platelet Count 303 K/mm3 (150-400); RDW Coefficient Variation 19.9 % (11.7-14.2); RDW Standard Deviation 59.7 fL (35.1-46.3); Red Blood Cell Count 4.17 M/mm3 (3.80-5.20); White Blood Cell Count 15.02 K/mm3 (4.00-11.30)
[2018-01-23 05:38] LABS: Percent Saturation 4.5 % (15.0-50.0)
[2018-01-23 05:56] LABS: Uric Acid, Blood 12.6 mg/dL (2.6-6.0)
[2018-01-23 06:18] LABS: Alanine Aminotransfer (ALT/SGP <6 U/L (12-78); Albumin, Blood 1.5 g/dL (3.4-5.0); Albumin/Globulin Ratio 0.3 (0.8-1.8); Alk Phos 231 U/L (50-136); Anion Gap 8 mmol/L (6-16); Aspartate Aminotrans (AST/SGOT 17 U/L (12-37); Bilirubin, Total 0.4 mg/dL (0.1-1.0); Blood Urea Nitrogen 101 mg/dL (8-24); Bun/Creatinine Ratio 59.1 (12.0-20.0); C-REACTIVE PROTEIN, EXT RANGE >19.000 mg/dL (0.000-0.300); CO2, Blood 32 mmol/L (21-32); Chloride, Blood 96 mmol/L (98-108); Creatinine, Blood 1.71 mg/dL (0.40-1.00); Globulin, Blood 5.2 g/dL (2.2-4.0); Glomerular Filtration Rate 32 (60-); Glucose, Blood 109 mg/dL (70-99); Potassium, Blood 3.5 mmol/L (3.5-5.5); Sodium, Blood 136 mmol/L (136-145); Total Protein, Blood 6.7 g/dL (6.4-8.2)
[2018-01-23 06:20] LABS: Calcium, Blood 5.8 mg/dL (8.5-10.1)
[2018-01-23 21:13] LABS: Vancomycin, Trough 23.8 ug/mL (5.0-10.0)
[2018-01-23 21:22] LABS: Influenza A Negative (NEGATIVE); Influenza B Negative (NEGATIVE)
[2018-01-24 04:51] LABS: BASOPHILS ABSOLUTE AUTO 0.05 K/mm3 (0.00-0.23); BASOPHILS PERCENT AUTO 0 % (0-2); EOSINOPHILS PERCENT AUTO 2 % (0-6); Hematocrit 34.3 % (33.0-51.0); Hemoglobin 9.9 g/dL (11.5-16.0); IMMATURE GRAN ABSOLUTE AUTO 0.22 K/mm3 (0.00-0.10); IMMATURE GRAN PERCENT AUTO 2 % (0-1); LYMPHOCYTES ABSOLUTE AUTO 0.72 K/mm3 (0.84-5.20); LYMPHOCYTES PERCENT AUTO 5 % (21-46); MONOCYTES ABSOLUTE AUTO 0.96 K/mm3 (0.16-1.47); MONOCYTES PERCENT AUTO 7 % (4-13); Mean Corpuscular HGB 23.7 pg (26.0-34.0); Mean Corpuscular HGB Conc 28.9 g/dL (31.5-36.5); Mean Corpuscular Volume 82 fL (80-100); Mean Platelet Volume 10.9 fL (9.1-12.4); NEUTROPHILS PERCENT AUTO 84 % (41-73); NRBC ABSOLUTE 0.03 K/mm3 (0.00-0.02); NRBC Auto 0.2 /100 WBC (0.0-0.2); Platelet Count 313 K/mm3 (150-400); RDW Coefficient Variation 19.9 % (11.7-14.2); RDW Standard Deviation 59.7 fL (35.1-46.3); Red Blood Cell Count 4.18 M/mm3 (3.80-5.20); White Blood Cell Count 13.75 K/mm3 (4.00-11.30)
[2018-01-24 05:11] LABS: Albumin, Blood 1.4 g/dL (3.4-5.0); Albumin/Globulin Ratio 0.3 (0.8-1.8); Bilirubin, Total 0.2 mg/dL (0.1-1.0); Bun/Creatinine Ratio 68.3 (12.0-20.0); Calcium, Blood 6.3 mg/dL (8.5-10.1); Creatinine, Blood 1.42 mg/dL (0.40-1.00); Globulin, Blood 5.2 g/dL (2.2-4.0); Potassium, Blood 3.1 mmol/L (3.5-5.5); Total Protein, Blood 6.6 g/dL (6.4-8.2)
[2018-01-24 13:50] LABS: Source, Urine Catheter
[2018-01-24 14:02] LABS: Appearance, Urine Clear (Clear); Bilirubin, Urine Neg (Neg); Blood, Urine Neg (Neg); Color, Urine Yellow (P-Yellow); Glucose Qualitative, Urine Neg (Neg); Ketones, Urine Neg (Neg); Leukocyte Esterase, Urine Neg (Neg); Nitrite, Urine Neg (Neg); Protein, Urine Neg (Neg); Specific Gravity, Urine 1.015 (1.003-1.022); Urobilinogen, Urine NORM (Normal)
[2018-01-25 06:12] LABS: BASOPHILS ABSOLUTE AUTO 0.01 K/mm3 (0.00-0.23); BASOPHILS PERCENT AUTO 0 % (0-2); EOSINOPHILS PERCENT AUTO 0 % (0-6); Hemoglobin 10.1 g/dL (11.5-16.0); IMMATURE GRAN ABSOLUTE AUTO 0.12 K/mm3 (0.00-0.10); IMMATURE GRAN PERCENT AUTO 1 % (0-1); LYMPHOCYTES ABSOLUTE AUTO 0.63 K/mm3 (0.84-5.20); LYMPHOCYTES PERCENT AUTO 7 % (21-46); MONOCYTES ABSOLUTE AUTO 0.67 K/mm3 (0.16-1.47); MONOCYTES PERCENT AUTO 8 % (4-13); Mean Corpuscular HGB Conc 29.7 g/dL (31.5-36.5); Mean Corpuscular Volume 81 fL (80-100); Mean Platelet Volume 11.4 fL (9.1-12.4); NEUTROPHILS PERCENT AUTO 84 % (41-73); NRBC ABSOLUTE 0.03 K/mm3 (0.00-0.02); NRBC Auto 0.3 /100 WBC (0.0-0.2); Platelet Count 314 K/mm3 (150-400); RDW Coefficient Variation 19.9 % (11.7-14.2); RDW Standard Deviation 58.8 fL (35.1-46.3); White Blood Cell Count 8.83 K/mm3 (4.00-11.30)
[2018-01-25 06:57] LABS: Thyroid Stimulating Hormone 0.732 uIU/mL (0.360-4.800)
[2018-01-25 07:19] LABS: Alanine Aminotransfer (ALT/SGP <6 U/L (12-78); Albumin, Blood 1.2 g/dL (3.4-5.0); Albumin/Globulin Ratio 0.2 (0.8-1.8); Alk Phos 211 U/L (50-136); Anion Gap 8 mmol/L (6-16); Aspartate Aminotrans (AST/SGOT 9 U/L (12-37); Bilirubin, Total 0.3 mg/dL (0.1-1.0); Blood Urea Nitrogen 87 mg/dL (8-24); Bun/Creatinine Ratio 74.4 (12.0-20.0); CO2, Blood 33 mmol/L (21-32); Calcium, Blood 5.9 mg/dL (8.5-10.1); Chloride, Blood 97 mmol/L (98-108); Creatinine, Blood 1.17 mg/dL (0.40-1.00); Globulin, Blood 5.1 g/dL (2.2-4.0); Glomerular Filtration Rate 49 (60-); Glucose, Blood 209 mg/dL (70-99); Potassium, Blood 3.4 mmol/L (3.5-5.5); Sodium, Blood 138 mmol/L (136-145); Total Protein, Blood 6.3 g/dL (6.4-8.2)
[2018-01-25 08:37] LABS: Magnesium, Blood 1.5 mg/dL (1.6-2.4)
[2018-01-25 08:44] LABS: Phosphorus, Blood 4.1 mg/dL (2.5-4.9); Vancomycin, Trough 23.7 ug/mL (5.0-10.0)
[2018-01-25 15:21] LABS: Vancomycin, Random 20.6 ug/mL
[2018-01-26 06:08] LABS: Hematocrit 36.8 % (33.0-51.0); Hemoglobin 10.8 g/dL (11.5-16.0); Mean Corpuscular HGB 23.6 pg (26.0-34.0); Mean Corpuscular HGB Conc 29.3 g/dL (31.5-36.5); Mean Corpuscular Volume 81 fL (80-100); Mean Platelet Volume 10.7 fL (9.1-12.4); NRBC ABSOLUTE 0.02 K/mm3 (0.00-0.02); NRBC Auto 0.3 /100 WBC (0.0-0.2); Platelet Count 338 K/mm3 (150-400); RDW Coefficient Variation 19.9 % (11.7-14.2); RDW Standard Deviation 58.6 fL (35.1-46.3); Red Blood Cell Count 4.57 M/mm3 (3.80-5.20); White Blood Cell Count 6.37 K/mm3 (4.00-11.30)
[2018-01-26 06:43] LABS: Calcium, Blood 6.2 mg/dL (8.5-10.1); Potassium, Blood 3.7 mmol/L (3.5-5.5)
[2018-01-27 05:39] LABS: Vancomycin, Trough 17.2 ug/mL (5.0-10.0)
[2018-01-28 05:20] LABS: Hemoglobin 11.1 g/dL (11.5-16.0); Mean Corpuscular HGB 23.3 pg (26.0-34.0); Mean Corpuscular HGB Conc 28.5 g/dL (31.5-36.5); Mean Corpuscular Volume 82 fL (80-100); Mean Platelet Volume 10.8 fL (9.1-12.4); NRBC ABSOLUTE 0.03 K/mm3 (0.00-0.02); NRBC Auto 0.3 /100 WBC (0.0-0.2); Platelet Count 421 K/mm3 (150-400); RDW Coefficient Variation 19.9 % (11.7-14.2); Red Blood Cell Count 4.77 M/mm3 (3.80-5.20); White Blood Cell Count 9.69 K/mm3 (4.00-11.30)
[2018-01-28 05:48] LABS: Anion Gap 4 mmol/L (6-16); Blood Urea Nitrogen 57 mg/dL (8-24); Bun/Creatinine Ratio 61.1 (12.0-20.0); CO2, Blood 37 mmol/L (21-32); Calcium, Blood 6.1 mg/dL (8.5-10.1); Chloride, Blood 100 mmol/L (98-108); Creatinine, Blood 0.93 mg/dL (0.40-1.00); Glomerular Filtration Rate >60 (60-); Glucose, Blood 57 mg/dL (70-99); Potassium, Blood 4.4 mmol/L (3.5-5.5); Sodium, Blood 141 mmol/L (136-145); Vancomycin, Random 10.6 ug/mL
== END 2018-01-28 15:45 | DRG 872 ==
LOC: ER 17:49 → MEDS 21:07 → BC 22:38 → MEDS 22:39 → ENPENDDIS 01-28 15:33 → MEDS 01-28 15:45
PROVIDERS: Emergency Medicine; Family Medicine; Hospitalist; Internal Medicine
DX: A41.02 Sepsis due to Methicillin resistant Staphylococcus aureus (principal); L03.115 Cellulitis of right lower limb; I96 Gangrene, not elsewhere classified; Z68.41 Body mass index [BMI] 40.0-44.9, adult; N17.9 Acute kidney failure, unspecified; E66.01 Morbid (severe) obesity due to excess calories; A40.1 Sepsis due to streptococcus, group B; E83.51 Hypocalcemia; E83.42 Hypomagnesemia; E11.40 Type 2 diabetes mellitus with diabetic neuropathy, unspecified; E11.22 Type 2 diabetes mellitus with diabetic chronic kidney disease; E11.65 Type 2 diabetes mellitus with hyperglycemia; N18.3 Chronic kidney disease, stage 3 (moderate); E03.9 Hypothyroidism, unspecified; M10.9 Gout, unspecified; M1A.9XX0 Chronic gout, unspecified, without tophus (tophi); F41.9 Anxiety disorder, unspecified; F32.9 Major depressive disorder, single episode, unspecified; E11.622 Type 2 diabetes mellitus with other skin ulcer; E11.51 Type 2 diabetes mellitus with diabetic peripheral angiopathy without gangrene; L97.514 Non-pressure chronic ulcer of other part of right foot with necrosis of bone; D64.9 Anemia, unspecified; E87.6 Hypokalemia; Z86.718 Personal history of other venous thrombosis and embolism; Z88.6 Allergy status to analgesic agent; Z88.1 Allergy status to other antibiotic agents; Z88.5 Allergy status to narcotic agent; Z88.8 Allergy status to other drugs, medicaments and biological substances; Z79.01 Long term (current) use of anticoagulants; Z79.4 Long term (current) use of insulin; Z79.899 Other long term (current) drug therapy
CPT/HCPCS: 36415; 71046; 73630; 80048; 80053; 80202; 81003; 82728; 82947; 83540; 83550; 83605; 83735; 83880; 84100; 84443; 84484; 84550; 85025; 85027; 85651; 86140; 86141; 87040; 87070; 87075; 87077; 87147; 87186; 87205; 87804; 93005; 93010; 94640; 94760; 96365; 96375; 97162; 97166; 97530; 97535; 99285; G8978; G8979; G8987; G8988; J0610; J0690; J0696; J1815; J2001; J3010; J3370; J3475; J7030; J7050

== ENCOUNTER 2018-01-30 16:23 | Emergency (ER) | payer OTHER ==
[~2018-01-30] VITALS: Ht 165.1 cm; Wt 99.8 kg
[~2018-01-30 16:23] MED LIST changes: +ALLO100 PO; +Citalopram HBr40 MG PO; +Nyamyc15 GM TOP; +PREG50 PO; +Ropinirole HCl3 MG PO
[2018-01-30] MEDS ORDERED: INSDET100 (16:42)
[2018-01-30] MEDS ORDERED: FERSU90EL (16:44)
[2018-01-30] MEDS ORDERED: Novolin R100 UNIT/M (16:44)
[2018-01-30] MEDS ORDERED: PRED20 (16:46)
[2018-01-30] MEDS ORDERED: Percocet 5-3251 EACH (16:47)
[2018-01-30] MEDS ORDERED: PREG50 PO (16:47)
[2018-01-30 16:53] LABS: BASOPHILS ABSOLUTE AUTO 0.02 K/mm3 (0.00-0.23); BASOPHILS PERCENT AUTO 0 % (0-2); EOSINOPHILS PERCENT AUTO 0 % (0-6); Hematocrit 41.9 % (33.0-51.0); Hemoglobin 12.2 g/dL (11.5-16.0); IMMATURE GRAN ABSOLUTE AUTO 0.08 K/mm3 (0.00-0.10); IMMATURE GRAN PERCENT AUTO 1 % (0-1); LYMPHOCYTES ABSOLUTE AUTO 0.67 K/mm3 (0.84-5.20); LYMPHOCYTES PERCENT AUTO 6 % (21-46); MONOCYTES PERCENT AUTO 3 % (4-13); Mean Corpuscular HGB 23.6 pg (26.0-34.0); Mean Corpuscular HGB Conc 29.1 g/dL (31.5-36.5); Mean Corpuscular Volume 81 fL (80-100); Mean Platelet Volume 10.5 fL (9.1-12.4); NEUTROPHILS ABSOLUTE AUTO 9.44 K/mm3 (1.96-9.15); NEUTROPHILS PERCENT AUTO 90 % (41-73); Platelet Count 492 K/mm3 (150-400); RDW Coefficient Variation 20.4 % (11.7-14.2); RDW Standard Deviation 59.1 fL (35.1-46.3); Red Blood Cell Count 5.17 M/mm3 (3.80-5.20); White Blood Cell Count 10.51 K/mm3 (4.00-11.30)
[2018-01-30 17:14] LABS: Alanine Aminotransfer (ALT/SGP 14 U/L (12-78); Albumin, Blood 1.8 g/dL (3.4-5.0); Albumin/Globulin Ratio 0.3 (0.8-1.8); Alk Phos 311 U/L (50-136); Anion Gap 8 mmol/L (6-16); Aspartate Aminotrans (AST/SGOT 48 U/L (12-37); Bilirubin, Total 0.4 mg/dL (0.1-1.0); Blood Urea Nitrogen 40 mg/dL (8-24); Bun/Creatinine Ratio 45.1 (12.0-20.0); CO2, Blood 31 mmol/L (21-32); Calcium, Blood 6.8 mg/dL (8.5-10.1); Chloride, Blood 99 mmol/L (98-108); Creatinine, Blood 0.89 mg/dL (0.40-1.00); Globulin, Blood 5.7 g/dL (2.2-4.0); Glomerular Filtration Rate >60 (60-); Glucose, Blood 293 mg/dL (70-99); Potassium, Blood 4.1 mmol/L (3.5-5.5); Sodium, Blood 138 mmol/L (136-145); Total Protein, Blood 7.5 g/dL (6.4-8.2)
== END 2018-01-30 19:36 | disposition home or self-care (01) ==
LOC: ER 16:23
PROVIDERS: Physician Assistant
DX: R10.12 Left upper quadrant pain (principal); R10.13 Epigastric pain; E11.22 Type 2 diabetes mellitus with diabetic chronic kidney disease; N18.9 Chronic kidney disease, unspecified; E03.9 Hypothyroidism, unspecified; J45.909 Unspecified asthma, uncomplicated; E66.01 Morbid (severe) obesity due to excess calories; Z88.1 Allergy status to other antibiotic agents; Z88.5 Allergy status to narcotic agent; Z88.6 Allergy status to analgesic agent; Z88.8 Allergy status to other drugs, medicaments and biological substances; Z79.899 Other long term (current) drug therapy; Z79.4 Long term (current) use of insulin; Z79.52 Long term (current) use of systemic steroids; Z86.718 Personal history of other venous thrombosis and embolism; Z87.891 Personal history of nicotine dependence; Z68.36 Body mass index [BMI] 36.0-36.9, adult
CPT/HCPCS: 74176; 80053; 83690; 85025; 96361; 96374; 96375; 96376; 99284; J3010; J3490; J7030

== ENCOUNTER 2018-02-08 15:39 | Inpatient (IN) | payer OTHER ==
[~2018-02-08] VITALS: Ht 165.1 cm; Wt 117.0 kg
[~2018-02-08 15:39] MED LIST changes: +FERSU90EL; +INSDET100; +Novolin R100 UNIT/M; +PRED20; +Percocet 5-3251 EACH
[2018-02-08] MEDS ORDERED: COLCHICINE0.6 MG (16:02)
[2018-02-08] MEDS ORDERED: DOCU100 (16:03)
[2018-02-08] MEDS ORDERED: ALLO100 (16:04)
[2018-02-08] MEDS ORDERED: Ranitidine HCl150 M1 (16:04)
[2018-02-08] MEDS ORDERED: PRED5 (16:05)
[2018-02-08] MEDS ORDERED: [UNRECOGNIZED DRUG - OTHER] (16:07)
[2018-02-08 16:46] LABS: Alanine Aminotransfer (ALT/SGP 15 U/L (12-78); Albumin/Globulin Ratio 0.4 (0.8-1.8); Alk Phos 212 U/L (50-136); Anion Gap 6 mmol/L (6-16); Aspartate Aminotrans (AST/SGOT 22 U/L (12-37); Bilirubin, Total 0.2 mg/dL (0.1-1.0); Blood Urea Nitrogen 38 mg/dL (8-24); Bun/Creatinine Ratio 41.1 (12.0-20.0); CO2, Blood 26 mmol/L (21-32); Calcium, Blood 6.6 mg/dL (8.5-10.1); Chloride, Blood 102 mmol/L (98-108); Creatinine, Blood 0.93 mg/dL (0.40-1.00); Globulin, Blood 4.9 g/dL (2.2-4.0); Glomerular Filtration Rate >60 (60-); Glucose, Blood 342 mg/dL (70-99); Potassium, Blood 4.7 mmol/L (3.5-5.5); Sodium, Blood 134 mmol/L (136-145); Total Protein, Blood 6.9 g/dL (6.4-8.2)
[2018-02-08 16:48] LABS: BASOPHILS PERCENT AUTO 1 % (0-2); EOSINOPHILS ABSOLUTE AUTO 0.15 K/mm3 (0.00-0.68); EOSINOPHILS PERCENT AUTO 1 % (0-6); Hematocrit 35.8 % (33.0-51.0); Hemoglobin 10.1 g/dL (11.5-16.0); IMMATURE GRAN ABSOLUTE AUTO 0.19 K/mm3 (0.00-0.10); IMMATURE GRAN PERCENT AUTO 2 % (0-1); LYMPHOCYTES ABSOLUTE AUTO 0.87 K/mm3 (0.84-5.20); LYMPHOCYTES PERCENT AUTO 8 % (21-46); MONOCYTES ABSOLUTE AUTO 0.78 K/mm3 (0.16-1.47); MONOCYTES PERCENT AUTO 7 % (4-13); Mean Corpuscular HGB 23.7 pg (26.0-34.0); Mean Corpuscular HGB Conc 28.2 g/dL (31.5-36.5); Mean Platelet Volume 9.9 fL (9.1-12.4); NEUTROPHILS ABSOLUTE AUTO 8.51 K/mm3 (1.96-9.15); NEUTROPHILS PERCENT AUTO 80 % (41-73); Platelet Count 392 K/mm3 (150-400); RDW Coefficient Variation 21.4 % (11.7-14.2); RDW Standard Deviation 65.1 fL (35.1-46.3); Red Blood Cell Count 4.27 M/mm3 (3.80-5.20)
[2018-02-08 16:56] LABS: Mean Corpuscular Volume 84 fL (80-100)
[2018-02-08 17:04] LABS: International Normalized Ratio 1.45; Prothrombin Time Results 15.3 Sec (9.7-11.5)
[2018-02-09 05:04] LABS: BASOPHILS ABSOLUTE AUTO 0.08 K/mm3 (0.00-0.23); BASOPHILS PERCENT AUTO 1 % (0-2); EOSINOPHILS ABSOLUTE AUTO 0.29 K/mm3 (0.00-0.68); EOSINOPHILS PERCENT AUTO 3 % (0-6); Hemoglobin 9.3 g/dL (11.5-16.0); IMMATURE GRAN ABSOLUTE AUTO 0.15 K/mm3 (0.00-0.10); IMMATURE GRAN PERCENT AUTO 2 % (0-1); LYMPHOCYTES ABSOLUTE AUTO 1.08 K/mm3 (0.84-5.20); LYMPHOCYTES PERCENT AUTO 12 % (21-46); MONOCYTES ABSOLUTE AUTO 0.92 K/mm3 (0.16-1.47); MONOCYTES PERCENT AUTO 11 % (4-13); Mean Corpuscular HGB Conc 29.1 g/dL (31.5-36.5); Mean Corpuscular Volume 83 fL (80-100); Mean Platelet Volume 10.1 fL (9.1-12.4); NEUTROPHILS ABSOLUTE AUTO 6.17 K/mm3 (1.96-9.15); NEUTROPHILS PERCENT AUTO 71 % (41-73); Platelet Count 406 K/mm3 (150-400); RDW Coefficient Variation 21.2 % (11.7-14.2); RDW Standard Deviation 63.9 fL (35.1-46.3); Red Blood Cell Count 3.87 M/mm3 (3.80-5.20); White Blood Cell Count 8.69 K/mm3 (4.00-11.30)
[2018-02-09 05:32] LABS: Anion Gap 5 mmol/L (6-16); Blood Urea Nitrogen 32 mg/dL (8-24); Bun/Creatinine Ratio 36.2 (12.0-20.0); CO2, Blood 28 mmol/L (21-32); Calcium, Blood 6.5 mg/dL (8.5-10.1); Chloride, Blood 108 mmol/L (98-108); Creatinine, Blood 0.89 mg/dL (0.40-1.00); Glomerular Filtration Rate >60 (60-); Glucose, Blood 74 mg/dL (70-99); Potassium, Blood 4.1 mmol/L (3.5-5.5); Sodium, Blood 141 mmol/L (136-145)
[2018-02-10 04:37] LABS: BASOPHILS ABSOLUTE AUTO 0.07 K/mm3 (0.00-0.23); BASOPHILS PERCENT AUTO 1 % (0-2); EOSINOPHILS ABSOLUTE AUTO 0.39 K/mm3 (0.00-0.68); EOSINOPHILS PERCENT AUTO 6 % (0-6); Hematocrit 33.1 % (33.0-51.0); Hemoglobin 9.7 g/dL (11.5-16.0); IMMATURE GRAN ABSOLUTE AUTO 0.16 K/mm3 (0.00-0.10); IMMATURE GRAN PERCENT AUTO 2 % (0-1); LYMPHOCYTES ABSOLUTE AUTO 1.33 K/mm3 (0.84-5.20); LYMPHOCYTES PERCENT AUTO 19 % (21-46); MONOCYTES ABSOLUTE AUTO 0.88 K/mm3 (0.16-1.47); MONOCYTES PERCENT AUTO 12 % (4-13); Mean Corpuscular HGB 24.2 pg (26.0-34.0); Mean Corpuscular HGB Conc 29.3 g/dL (31.5-36.5); Mean Corpuscular Volume 83 fL (80-100); Mean Platelet Volume 9.9 fL (9.1-12.4); NEUTROPHILS ABSOLUTE AUTO 4.31 K/mm3 (1.96-9.15); NEUTROPHILS PERCENT AUTO 60 % (41-73); Platelet Count 374 K/mm3 (150-400); RDW Coefficient Variation 21.5 % (11.7-14.2); RDW Standard Deviation 64.6 fL (35.1-46.3); Red Blood Cell Count 4.01 M/mm3 (3.80-5.20); White Blood Cell Count 7.14 K/mm3 (4.00-11.30)
[2018-02-10 05:00] LABS: Bun/Creatinine Ratio 38.8 (12.0-20.0); Calcium, Blood 6.5 mg/dL (8.5-10.1); Creatinine, Blood 1.03 mg/dL (0.40-1.00); Potassium, Blood 4.6 mmol/L (3.5-5.5)
[2018-02-10 12:10] LABS: Vancomycin, Trough 14.3 ug/mL (5.0-10.0)
== END 2018-02-10 15:15 | DRG 602 ==
LOC: ER 15:39 → MEDS 15:40 → ENPENDDIS 02-10 09:58 → MEDS 02-10 15:15
PROVIDERS: Internal Medicine; Pharmacist; Physician Assistant
DX: L03.115 Cellulitis of right lower limb (principal); J96.01 Acute respiratory failure with hypoxia; J81.1 Chronic pulmonary edema; Z68.41 Body mass index [BMI] 40.0-44.9, adult; E11.621 Type 2 diabetes mellitus with foot ulcer; L97.519 Non-pressure chronic ulcer of other part of right foot with unspecified severity; I48.0 Paroxysmal atrial fibrillation; E11.40 Type 2 diabetes mellitus with diabetic neuropathy, unspecified; E11.22 Type 2 diabetes mellitus with diabetic chronic kidney disease; I12.9 Hypertensive chronic kidney disease with stage 1 through stage 4 chronic kidney disease, or unspecified chronic kidney disease; N18.3 Chronic kidney disease, stage 3 (moderate); E03.9 Hypothyroidism, unspecified; E11.51 Type 2 diabetes mellitus with diabetic peripheral angiopathy without gangrene; J45.909 Unspecified asthma, uncomplicated; E66.01 Morbid (severe) obesity due to excess calories; M10.9 Gout, unspecified; F32.9 Major depressive disorder, single episode, unspecified; D63.8 Anemia in other chronic diseases classified elsewhere; E11.649 Type 2 diabetes mellitus with hypoglycemia without coma; G47.33 Obstructive sleep apnea (adult) (pediatric); Z86.718 Personal history of other venous thrombosis and embolism; Z87.891 Personal history of nicotine dependence; Z88.5 Allergy status to narcotic agent; Z88.0 Allergy status to penicillin; Z88.8 Allergy status to other drugs, medicaments and biological substances; Z79.01 Long term (current) use of anticoagulants; Z79.4 Long term (current) use of insulin; Z79.891 Long term (current) use of opiate analgesic; Z79.52 Long term (current) use of systemic steroids; Z79.899 Other long term (current) drug therapy
CPT/HCPCS: 36415; 71046; 73620; 80048; 80053; 80202; 82947; 83036; 83605; 84443; 85025; 85610; 87040; 93005; 93010; 93971; 94640; 94760; 94761; 96365; 96366; 96375; 99285; A9270; C1751; G0378; J1815; J2185; J3370; J7030; J7050

== ENCOUNTER → 2018-02-12 | Outpatient (CLI) | payer OTHER ==
[~2018-02-12] MED LIST changes: +ALLO100; +AMLO10 PO; +BUME1 PO; +COLCHICINE0.6 MG; +DOCU100; +IRON150C; +METO25ER; +PRED5; +PREG25 PO; +Ranitidine HCl150 M1; +Toprol Xl50 MG PO; +XARELTO15 MG PO; +[UNRECOGNIZED DRUG - OTHER]
[2018-02-12 13:03] LABS: Anion Gap 4 mmol/L (6-16); Blood Urea Nitrogen 36 mg/dL (8-24); Bun/Creatinine Ratio 40.1 (12.0-20.0); CO2, Blood 29 mmol/L (21-32); Calcium, Blood 6.7 mg/dL (8.5-10.1); Chloride, Blood 105 mmol/L (98-108); Glomerular Filtration Rate >60 (60-); Glucose, Blood 157 mg/dL (70-99); Potassium, Blood 4.9 mmol/L (3.5-5.5); Sodium, Blood 138 mmol/L (136-145); Vancomycin, Trough 17.3 ug/mL (5.0-10.0)
== END | disposition home or self-care (01) ==
LOC: EDSTATUS 11:41 → LAB RH 12:41
PROVIDERS: Family Medicine
DX: L03.115 Cellulitis of right lower limb (principal)
CPT/HCPCS: 80048; 80202

== ENCOUNTER 2018-02-13 09:27 | Emergency (ER) | payer OTHER ==
[~2018-02-13] VITALS: Ht 165.1 cm; Wt 108.9 kg
[~2018-02-13 09:27] MED LIST changes: -AMLO10 PO; -BUME1 PO; -IRON150C; -METO25ER; -PREG25 PO; -Toprol Xl50 MG PO; -XARELTO15 MG PO
[2018-02-13 10:18] LABS: BASOPHILS ABSOLUTE AUTO 0.06 K/mm3 (0.00-0.23); BASOPHILS PERCENT AUTO 1 % (0-2); EOSINOPHILS ABSOLUTE AUTO 0.37 K/mm3 (0.00-0.68); EOSINOPHILS PERCENT AUTO 7 % (0-6); Hematocrit 35.7 % (33.0-51.0); Hemoglobin 10.3 g/dL (11.5-16.0); IMMATURE GRAN PERCENT AUTO 2 % (0-1); LYMPHOCYTES ABSOLUTE AUTO 1.32 K/mm3 (0.84-5.20); LYMPHOCYTES PERCENT AUTO 23 % (21-46); MONOCYTES ABSOLUTE AUTO 0.59 K/mm3 (0.16-1.47); MONOCYTES PERCENT AUTO 10 % (4-13); Mean Corpuscular HGB 24.2 pg (26.0-34.0); Mean Corpuscular HGB Conc 28.9 g/dL (31.5-36.5); Mean Corpuscular Volume 84 fL (80-100); Mean Platelet Volume 9.9 fL (9.1-12.4); NEUTROPHILS ABSOLUTE AUTO 3.28 K/mm3 (1.96-9.15); NEUTROPHILS PERCENT AUTO 57 % (41-73); Platelet Count 320 K/mm3 (150-400); RDW Coefficient Variation 21.3 % (11.7-14.2); RDW Standard Deviation 64.6 fL (35.1-46.3); Red Blood Cell Count 4.25 M/mm3 (3.80-5.20); White Blood Cell Count 5.72 K/mm3 (4.00-11.30)
[2018-02-13 10:44] LABS: Alanine Aminotransfer (ALT/SGP 14 U/L (12-78); Albumin, Blood 1.8 g/dL (3.4-5.0); Albumin/Globulin Ratio 0.4 (0.8-1.8); Alk Phos 190 U/L (50-136); Anion Gap 7 mmol/L (6-16); Aspartate Aminotrans (AST/SGOT 16 U/L (12-37); Bilirubin, Total 0.2 mg/dL (0.1-1.0); Blood Urea Nitrogen 34 mg/dL (8-24); Bun/Creatinine Ratio 38.9 (12.0-20.0); CO2, Blood 29 mmol/L (21-32); Calcium, Blood 6.7 mg/dL (8.5-10.1); Chloride, Blood 105 mmol/L (98-108); Creatinine, Blood 0.88 mg/dL (0.40-1.00); Globulin, Blood 5.1 g/dL (2.2-4.0); Glomerular Filtration Rate >60 (60-); Glucose, Blood 188 mg/dL (70-99); Potassium, Blood 4.6 mmol/L (3.5-5.5); Sodium, Blood 141 mmol/L (136-145); Total Protein, Blood 6.9 g/dL (6.4-8.2); Troponin I <0.015 ng/mL (0.000-0.040)
[2018-02-13 12:42] LABS: PCO2 Arterial 45.9 mmHg (35-45); pH Blood Arterial 7.41 (7.35-7.45)
[2018-02-13] MEDS ORDERED: Toprol Xl50 MG PO (12:58)
== END 2018-02-13 14:10 | disposition home or self-care (01) ==
LOC: ER 09:27
PROVIDERS: Internal Medicine
DX: I48.0 Paroxysmal atrial fibrillation (principal); J84.9 Interstitial pulmonary disease, unspecified; E11.22 Type 2 diabetes mellitus with diabetic chronic kidney disease; N18.3 Chronic kidney disease, stage 3 (moderate); E03.9 Hypothyroidism, unspecified; J45.909 Unspecified asthma, uncomplicated; Z88.1 Allergy status to other antibiotic agents; Z88.5 Allergy status to narcotic agent; Z88.6 Allergy status to analgesic agent; Z88.8 Allergy status to other drugs, medicaments and biological substances; Z79.899 Other long term (current) drug therapy; Z79.4 Long term (current) use of insulin; Z79.52 Long term (current) use of systemic steroids; Z86.718 Personal history of other venous thrombosis and embolism; Z87.891 Personal history of nicotine dependence
CPT/HCPCS: 36600; 71046; 80053; 82803; 83880; 84484; 85025; 93005; 93010; 94640; 96374; 96376; 99284

== ENCOUNTER → 2018-02-16 | Outpatient (CLI) | payer OTHER ==
[~2018-02-16] MED LIST changes: +AMLO10 PO; +BUME1 PO; +IRON150C; +METO25ER; +PREG25 PO; +Toprol Xl50 MG PO; +XARELTO15 MG PO
[2018-02-16 20:19] LABS: Anion Gap 4 mmol/L (6-16); Blood Urea Nitrogen 33 mg/dL (8-24); Bun/Creatinine Ratio 37.8 (12.0-20.0); CO2, Blood 32 mmol/L (21-32); Calcium, Blood 6.9 mg/dL (8.5-10.1); Chloride, Blood 104 mmol/L (98-108); Creatinine, Blood 0.87 mg/dL (0.40-1.00); Glomerular Filtration Rate >60 (60-); Glucose, Blood 143 mg/dL (70-99); Potassium, Blood 4.5 mmol/L (3.5-5.5); Sodium, Blood 140 mmol/L (136-145); Vancomycin, Trough 19.7 ug/mL (5.0-10.0)
== END | disposition home or self-care (01) ==
LOC: EDSTATUS 11:43 → LAB RH 15:40
PROVIDERS: Family Medicine
DX: A41.9 Sepsis, unspecified organism (principal)
CPT/HCPCS: 80048; 80202

== ENCOUNTER 2018-02-19 16:03 | Day surgery (SDC) | payer OTHER | END 2018-02-19 18:00 | disposition home or self-care (01) | LOC: MEDS 16:03 → TRN 16:03 → MEDS 16:39 → TRN 18:00 | DX: L03.115 Cellulitis of right lower limb (principal); I12.9 Hypertensive chronic kidney disease with stage 1 through stage 4 chronic kidney disease, or unspecified chronic kidney disease; N18.3 Chronic kidney disease, stage 3 (moderate); E11.22 Type 2 diabetes mellitus with diabetic chronic kidney disease; E03.9 Hypothyroidism, unspecified; F41.9 Anxiety disorder, unspecified | CPT/HCPCS: C1751 ==

== ENCOUNTER → 2018-03-05 | Outpatient (CLI) | payer OTHER ==
[~2018-03-05] MED LIST changes: -ALBU90OI61 INH; -BUME1; +Bactrim Ds Tab1 EACH PO; +CALCIUM CITRATE PO; +Culturelle1 CAP PO; -DOCU100; +DOXY100 PO; -Novolin R100 UNIT/M; +Novolin R100 UNIT/M SC; -Percocet 5-3251 EACH; +Percocet 5-3251 EACH PO; +Zantac150 MG PO; -[UNRECOGNIZED DRUG - OTHER]; +[UNRECOGNIZED DRUG - OTHER] PO
== END | disposition home or self-care (01) ==
LOC: LAB RH 14:17 → EDSTATUS 14:45
DX: R06.02 Shortness of breath (principal)
CPT/HCPCS: 83880

== ENCOUNTER → 2018-03-06 | Outpatient (CLI) | payer OTHER | END | disposition home or self-care (01) | LOC: LAB RH 10:09 → EDSTATUS 14:47 | DX: N18.3 Chronic kidney disease, stage 3 (moderate) (principal) | CPT/HCPCS: 84132 ==

== ENCOUNTER → 2018-03-08 | Outpatient (CLI) | payer OTHER | END | disposition home or self-care (01) | LOC: LAB RH 10:29 → EDSTATUS 14:49 | DX: N18.3 Chronic kidney disease, stage 3 (moderate) (principal); M62.81 Muscle weakness (generalized); A41.9 Sepsis, unspecified organism | CPT/HCPCS: 84132 ==

== ENCOUNTER → 2018-03-31 | Outpatient (CLI) | payer OTHER ==
[~2018-03-31] MED LIST changes: +ALBU90OI61 INH; +BUME1; -Bactrim Ds Tab1 EACH PO; -CALCIUM CITRATE PO; -Culturelle1 CAP PO; +DOCU100; -DOXY100 PO; +Novolin R100 UNIT/M; -Novolin R100 UNIT/M SC; +Percocet 5-3251 EACH; -Percocet 5-3251 EACH PO; -Zantac150 MG PO; +[UNRECOGNIZED DRUG - OTHER]; -[UNRECOGNIZED DRUG - OTHER] PO
== END | disposition home or self-care (01) ==
LOC: LAB 16:30 → LAB SHORT 16:30
DX: N39.0 Urinary tract infection, site not specified (principal)
CPT/HCPCS: 87077; 87086; 87186

== ENCOUNTER 2018-04-12 14:14 | Observation (INO) | payer OTHER ==
[~2018-04-12] VITALS: Ht 165.1 cm; Wt 113.2 kg
[~2018-04-12 14:14] MED LIST changes: -ALBU90OI61 INH; -BUME1; -DOCU100; -Novolin R100 UNIT/M; +Novolin R100 UNIT/M SC; -Percocet 5-3251 EACH; +Percocet 5-3251 EACH PO; +Zantac150 MG PO; -[UNRECOGNIZED DRUG - OTHER]; +[UNRECOGNIZED DRUG - OTHER] PO
[2018-04-12 15:00] LABS: BASOPHILS ABSOLUTE AUTO 0.02 K/mm3 (0.00-0.23); BASOPHILS PERCENT AUTO 0 % (0-2); EOSINOPHILS ABSOLUTE AUTO 0.12 K/mm3 (0.00-0.68); EOSINOPHILS PERCENT AUTO 1 % (0-6); Hematocrit 38.6 % (33.0-51.0); Hemoglobin 11.4 g/dL (11.5-16.0); IMMATURE GRAN ABSOLUTE AUTO 0.12 K/mm3 (0.00-0.10); IMMATURE GRAN PERCENT AUTO 1 % (0-1); LYMPHOCYTES ABSOLUTE AUTO 0.84 K/mm3 (0.84-5.20); LYMPHOCYTES PERCENT AUTO 9 % (21-46); MONOCYTES ABSOLUTE AUTO 0.51 K/mm3 (0.16-1.47); MONOCYTES PERCENT AUTO 5 % (4-13); Mean Corpuscular HGB 25.6 pg (26.0-34.0); Mean Corpuscular HGB Conc 29.5 g/dL (31.5-36.5); Mean Corpuscular Volume 87 fL (80-100); Mean Platelet Volume 11.6 fL (9.1-12.4); NEUTROPHILS ABSOLUTE AUTO 8.14 K/mm3 (1.96-9.15); NEUTROPHILS PERCENT AUTO 84 % (41-73); Platelet Count 303 K/mm3 (150-400); RDW Coefficient Variation 17.8 % (11.7-14.2); RDW Standard Deviation 56.5 fL (35.1-46.3); Red Blood Cell Count 4.46 M/mm3 (3.80-5.20); White Blood Cell Count 9.75 K/mm3 (4.00-11.30)
[2018-04-12 15:20] LABS: Albumin, Blood 2.3 g/dL (3.4-5.0); Albumin/Globulin Ratio 0.4 (0.8-1.8); Bilirubin, Total 0.5 mg/dL (0.1-1.0); Bun/Creatinine Ratio 55.8 (12.0-20.0); Calcium, Blood 7.5 mg/dL (8.5-10.1); Creatinine, Blood 1.47 mg/dL (0.40-1.00); Globulin, Blood 5.7 g/dL (2.2-4.0); Potassium, Blood 2.9 mmol/L (3.5-5.5)
[2018-04-12] MEDS ORDERED: INSDET100 SC (19:57)
[2018-04-12] MEDS ORDERED: CALCIUM CITRATE PO (19:59)
[2018-04-13 04:44] LABS: BASOPHILS ABSOLUTE AUTO 0.04 K/mm3 (0.00-0.23); BASOPHILS PERCENT AUTO 0 % (0-2); EOSINOPHILS ABSOLUTE AUTO 0.25 K/mm3 (0.00-0.68); EOSINOPHILS PERCENT AUTO 2 % (0-6); Hemoglobin 10.6 g/dL (11.5-16.0); IMMATURE GRAN ABSOLUTE AUTO 0.13 K/mm3 (0.00-0.10); IMMATURE GRAN PERCENT AUTO 1 % (0-1); LYMPHOCYTES ABSOLUTE AUTO 1.13 K/mm3 (0.84-5.20); LYMPHOCYTES PERCENT AUTO 9 % (21-46); MONOCYTES ABSOLUTE AUTO 1.03 K/mm3 (0.16-1.47); MONOCYTES PERCENT AUTO 8 % (4-13); Mean Corpuscular HGB 25.1 pg (26.0-34.0); Mean Corpuscular HGB Conc 29.4 g/dL (31.5-36.5); Mean Corpuscular Volume 85 fL (80-100); Mean Platelet Volume 11.4 fL (9.1-12.4); NEUTROPHILS PERCENT AUTO 80 % (41-73); Platelet Count 281 K/mm3 (150-400); RDW Coefficient Variation 17.7 % (11.7-14.2); RDW Standard Deviation 55.3 fL (35.1-46.3); Red Blood Cell Count 4.22 M/mm3 (3.80-5.20); White Blood Cell Count 12.78 K/mm3 (4.00-11.30)
[2018-04-13 05:01] LABS: Anion Gap 6 mmol/L (6-16); Blood Urea Nitrogen 68 mg/dL (8-24); Bun/Creatinine Ratio 54.4 (12.0-20.0); CO2, Blood 37 mmol/L (21-32); Calcium, Blood 7.1 mg/dL (8.5-10.1); Chloride, Blood 97 mmol/L (98-108); Creatinine, Blood 1.25 mg/dL (0.40-1.00); Glomerular Filtration Rate 45 (60-); Glucose, Blood 142 mg/dL (70-99); Potassium, Blood 3.2 mmol/L (3.5-5.5); Sodium, Blood 140 mmol/L (136-145); Vancomycin, Random 20.2 ug/mL
[2018-04-14 07:56] LABS: BASOPHILS ABSOLUTE AUTO 0.05 K/mm3 (0.00-0.23); BASOPHILS PERCENT AUTO 1 % (0-2); EOSINOPHILS ABSOLUTE AUTO 0.26 K/mm3 (0.00-0.68); EOSINOPHILS PERCENT AUTO 3 % (0-6); Hematocrit 38.9 % (33.0-51.0); Hemoglobin 11.4 g/dL (11.5-16.0); IMMATURE GRAN ABSOLUTE AUTO 0.14 K/mm3 (0.00-0.10); IMMATURE GRAN PERCENT AUTO 2 % (0-1); LYMPHOCYTES ABSOLUTE AUTO 1.51 K/mm3 (0.84-5.20); LYMPHOCYTES PERCENT AUTO 17 % (21-46); MONOCYTES ABSOLUTE AUTO 0.67 K/mm3 (0.16-1.47); MONOCYTES PERCENT AUTO 8 % (4-13); Mean Corpuscular HGB 25.3 pg (26.0-34.0); Mean Corpuscular HGB Conc 29.3 g/dL (31.5-36.5); Mean Corpuscular Volume 86 fL (80-100); Mean Platelet Volume 10.6 fL (9.1-12.4); NEUTROPHILS ABSOLUTE AUTO 6.19 K/mm3 (1.96-9.15); NEUTROPHILS PERCENT AUTO 70 % (41-73); Platelet Count 266 K/mm3 (150-400); RDW Coefficient Variation 17.3 % (11.7-14.2); RDW Standard Deviation 55.3 fL (35.1-46.3); Red Blood Cell Count 4.51 M/mm3 (3.80-5.20); White Blood Cell Count 8.82 K/mm3 (4.00-11.30)
[2018-04-14 08:15] LABS: Bun/Creatinine Ratio 37.4 (12.0-20.0); Calcium, Blood 8.1 mg/dL (8.5-10.1); Creatinine, Blood 1.23 mg/dL (0.40-1.00); Magnesium, Blood 1.2 mg/dL (1.6-2.4); Potassium, Blood 3.5 mmol/L (3.5-5.5)
[2018-04-14] MEDS ORDERED: DOXY100 PO (12:06)
[2018-04-14] MEDS ORDERED: Bactrim Ds Tab1 EACH PO (12:07)
[2018-04-14] MEDS ORDERED: Culturelle1 CAP PO (12:07)
[2018-04-14] MEDS ORDERED: MAGOXI400 PO (12:13)
[2018-04-14 15:09] LABS: Vancomycin, Trough 14.8 ug/mL (5.0-10.0)
== END 2018-04-14 16:38 | disposition home or self-care (01) ==
LOC: ER 14:14 → MEDS 14:15 → ER 18:27 → MEDS 18:27 → ENPENDDIS 04-14 11:00 → MEDS 04-14 16:38
PROVIDERS: Hospitalist; Internal Medicine; Nurse Practitioner Family
DX: E11.628 Type 2 diabetes mellitus with other skin complications (principal); L03.115 Cellulitis of right lower limb; I48.91 Unspecified atrial fibrillation; I12.9 Hypertensive chronic kidney disease with stage 1 through stage 4 chronic kidney disease, or unspecified chronic kidney disease; E11.22 Type 2 diabetes mellitus with diabetic chronic kidney disease; N18.3 Chronic kidney disease, stage 3 (moderate); E03.9 Hypothyroidism, unspecified; E66.01 Morbid (severe) obesity due to excess calories; E11.65 Type 2 diabetes mellitus with hyperglycemia; E87.6 Hypokalemia; E11.40 Type 2 diabetes mellitus with diabetic neuropathy, unspecified; Z79.899 Other long term (current) drug therapy; Z88.0 Allergy status to penicillin; Z88.5 Allergy status to narcotic agent; Z88.8 Allergy status to other drugs, medicaments and biological substances
CPT/HCPCS: 36415; 71045; 80048; 80053; 80202; 82947; 83605; 83735; 85025; 87040; 87070; 87075; 87077; 87186; 87205; 94760; 96361; 96374; 96375; 99285; A9270; G0378; J1815; J1956; J3370; J3475; J7030; J7050; J7120

== ENCOUNTER → 2018-04-20 | Outpatient (CLI) | payer OTHER ==
[~2018-04-20] MED LIST changes: +Bactrim Ds Tab1 EACH PO; +CALCIUM CITRATE PO; +Culturelle1 CAP PO; +DOXY100 PO
[2018-04-20 17:10] LABS: Microalb/Creat Ratio UR, Rand Unable to Calculate mg/g (0.000-30.000); Microalbumin, Random Urine <5.000 mg/L (0.000-20.000)
== END ==
LOC: LAB 14:58 → LAB SHORT 14:58
PROVIDERS: Nurse Practitioner Family
DX: E11.9 Type 2 diabetes mellitus without complications (principal)
CPT/HCPCS: 82043; 82570

== ENCOUNTER 2018-05-06 16:28 | Inpatient (IN) | payer OTHER ==
[~2018-05-06] VITALS: Ht 160 cm; Wt 110.9 kg
[~2018-05-06 16:28] MED LIST changes: -[UNRECOGNIZED DRUG - OTHER] PO
[2018-05-06 17:00] LABS: BASOPHILS ABSOLUTE AUTO 0.04 K/mm3 (0.00-0.23); BASOPHILS PERCENT AUTO 1 % (0-2); EOSINOPHILS ABSOLUTE AUTO 0.16 K/mm3 (0.00-0.68); EOSINOPHILS PERCENT AUTO 2 % (0-6); Hematocrit 32.1 % (33.0-51.0); Hemoglobin 9.5 g/dL (11.5-16.0); IMMATURE GRAN PERCENT AUTO 1 % (0-1); LYMPHOCYTES PERCENT AUTO 16 % (21-46); MONOCYTES ABSOLUTE AUTO 0.62 K/mm3 (0.16-1.47); MONOCYTES PERCENT AUTO 8 % (4-13); Mean Corpuscular HGB 25.1 pg (26.0-34.0); Mean Corpuscular HGB Conc 29.6 g/dL (31.5-36.5); Mean Corpuscular Volume 85 fL (80-100); Mean Platelet Volume 11.7 fL (9.1-12.4); NEUTROPHILS ABSOLUTE AUTO 5.62 K/mm3 (1.96-9.15); NEUTROPHILS PERCENT AUTO 73 % (41-73); NRBC ABSOLUTE 0.04 K/mm3 (0.00-0.02); NRBC Auto 0.5 /100 WBC (0.0-0.2); Platelet Count 274 K/mm3 (150-400); RDW Coefficient Variation 17.9 % (11.7-14.2); RDW Standard Deviation 54.2 fL (35.1-46.3); Red Blood Cell Count 3.79 M/mm3 (3.80-5.20); White Blood Cell Count 7.74 K/mm3 (4.00-11.30)
[2018-05-06 17:15] LABS: Albumin/Globulin Ratio 0.4 (0.8-1.8); Bilirubin, Total 0.4 mg/dL (0.1-1.0); Bun/Creatinine Ratio 52.5 (12.0-20.0); Calcium, Blood 7.6 mg/dL (8.5-10.1); Creatinine, Blood 1.62 mg/dL (0.40-1.00); Globulin, Blood 5.4 g/dL (2.2-4.0); Potassium, Blood 2.8 mmol/L (3.5-5.5); Total Protein, Blood 7.4 g/dL (6.4-8.2)
[2018-05-06 17:44] LABS: Source, Urine Catheter
[2018-05-06 17:49] LABS: Bilirubin, Urine Neg (Neg); Blood, Urine Neg (Neg); Glucose Qualitative, Urine Neg (Neg); Ketones, Urine Neg (Neg); Leukocyte Esterase, Urine Neg (Neg); Nitrite, Urine Neg (Neg); Protein, Urine Neg (Neg); Specific Gravity, Urine 1.005 (1.003-1.022); Urobilinogen, Urine NORM (Normal)
[2018-05-06 17:58] LABS: Appearance, Urine Clear (Clear); Color, Urine Pale Yellow (P-Yellow)
[2018-05-06 20:26] LABS: International Normalized Ratio 1.17; Prothrombin Time Results 11.9 Sec (9.7-11.5)
[2018-05-06] MEDS ORDERED: PANT40 PO (22:49)
[2018-05-06] MEDS ORDERED: PROM25 PO (22:50)
[2018-05-06] MEDS ORDERED: KLOR-CON SPRIN10 MEQ PO (22:58)
[2018-05-06] MEDS ORDERED: INSULANPEN SC (23:00)
[2018-05-06] MEDS ORDERED: CYAN500 PO (23:02)
[2018-05-06] MEDS ORDERED: EMU-LAC HYDRAT120 ML TOP (23:04)
[2018-05-06] MEDS ORDERED: TRIA15CR3 TOP (23:05)
[2018-05-06] MEDS ORDERED: NYSTRIT TOP (23:06)
[2018-05-06] MEDS ORDERED: LOPE2C PO (23:07)
[2018-05-06] MEDS ORDERED: CLARITIN10 MG PO (23:08)
[2018-05-06] MEDS ORDERED: LEVFLO250 (23:12)
[2018-05-06] MEDS ORDERED: FURO20 PO (23:13)
[2018-05-07 04:06] LABS: Hematocrit 29.9 % (33.0-51.0); Hemoglobin 8.8 g/dL (11.5-16.0); Mean Corpuscular HGB 24.6 pg (26.0-34.0); Mean Corpuscular HGB Conc 29.4 g/dL (31.5-36.5); Mean Corpuscular Volume 84 fL (80-100); NRBC ABSOLUTE 0.05 K/mm3 (0.00-0.02); NRBC Auto 0.7 /100 WBC (0.0-0.2); Platelet Count 254 K/mm3 (150-400); RDW Coefficient Variation 17.8 % (11.7-14.2); RDW Standard Deviation 53.6 fL (35.1-46.3); Red Blood Cell Count 3.57 M/mm3 (3.80-5.20); White Blood Cell Count 7.57 K/mm3 (4.00-11.30)
[2018-05-07 04:37] LABS: Albumin/Globulin Ratio 0.4 (0.8-1.8); Bilirubin, Total 0.4 mg/dL (0.1-1.0); Bun/Creatinine Ratio 52.4 (12.0-20.0); Creatinine, Blood 1.45 mg/dL (0.40-1.00); Globulin, Blood 4.7 g/dL (2.2-4.0); Potassium, Blood 3.1 mmol/L (3.5-5.5); Total Protein, Blood 6.7 g/dL (6.4-8.2)
[2018-05-08 05:06] LABS: BASOPHILS ABSOLUTE AUTO 0.02 K/mm3 (0.00-0.23); BASOPHILS PERCENT AUTO 0 % (0-2); EOSINOPHILS ABSOLUTE AUTO 0.22 K/mm3 (0.00-0.68); EOSINOPHILS PERCENT AUTO 4 % (0-6); Hematocrit 30.6 % (33.0-51.0); Hemoglobin 8.8 g/dL (11.5-16.0); IMMATURE GRAN ABSOLUTE AUTO 0.04 K/mm3 (0.00-0.10); IMMATURE GRAN PERCENT AUTO 1 % (0-1); LYMPHOCYTES ABSOLUTE AUTO 1.06 K/mm3 (0.84-5.20); LYMPHOCYTES PERCENT AUTO 17 % (21-46); MONOCYTES ABSOLUTE AUTO 0.64 K/mm3 (0.16-1.47); MONOCYTES PERCENT AUTO 11 % (4-13); Mean Corpuscular HGB 25.1 pg (26.0-34.0); Mean Corpuscular HGB Conc 28.8 g/dL (31.5-36.5); Mean Platelet Volume 10.9 fL (9.1-12.4); NEUTROPHILS PERCENT AUTO 68 % (41-73); Platelet Count 233 K/mm3 (150-400); RDW Coefficient Variation 17.6 % (11.7-14.2); RDW Standard Deviation 55.6 fL (35.1-46.3); White Blood Cell Count 6.08 K/mm3 (4.00-11.30)
[2018-05-08 05:30] LABS: Albumin, Blood 1.8 g/dL (3.4-5.0); Anion Gap 7 mmol/L (6-16); Blood Urea Nitrogen 57 mg/dL (8-24); Bun/Creatinine Ratio 47.9 (12.0-20.0); CO2, Blood 37 mmol/L (21-32); Calcium, Blood 6.9 mg/dL (8.5-10.1); Chloride, Blood 97 mmol/L (98-108); Creatinine, Blood 1.19 mg/dL (0.40-1.00); Glomerular Filtration Rate 48 (60-); Glucose, Blood 117 mg/dL (70-99); Phosphorus, Blood 3.3 mg/dL (2.5-4.9); Potassium, Blood 3.3 mmol/L (3.5-5.5); Sodium, Blood 141 mmol/L (136-145)
[2018-05-08 05:39] LABS: Mean Corpuscular Volume 87 fL (80-100)
[2018-05-09 13:44] LABS: Hematocrit 33.3 % (33.0-51.0); Hemoglobin 9.3 g/dL (11.5-16.0)
[2018-05-09 13:59] LABS: Albumin, Blood 1.9 g/dL (3.4-5.0); Anion Gap 7 mmol/L (6-16); Blood Urea Nitrogen 43 mg/dL (8-24); Bun/Creatinine Ratio 36.1 (12.0-20.0); CO2, Blood 37 mmol/L (21-32); Chloride, Blood 97 mmol/L (98-108); Creatinine, Blood 1.19 mg/dL (0.40-1.00); Glomerular Filtration Rate 48 (60-); Glucose, Blood 142 mg/dL (70-99); Phosphorus, Blood 2.3 mg/dL (2.5-4.9); Potassium, Blood 3.7 mmol/L (3.5-5.5); Sodium, Blood 141 mmol/L (136-145)
[2018-05-10 04:59] LABS: BASOPHILS ABSOLUTE AUTO 0.04 K/mm3 (0.00-0.23); BASOPHILS PERCENT AUTO 1 % (0-2); EOSINOPHILS ABSOLUTE AUTO 0.26 K/mm3 (0.00-0.68); EOSINOPHILS PERCENT AUTO 4 % (0-6); Hematocrit 33.2 % (33.0-51.0); Hemoglobin 9.3 g/dL (11.5-16.0); IMMATURE GRAN ABSOLUTE AUTO 0.07 K/mm3 (0.00-0.10); IMMATURE GRAN PERCENT AUTO 1 % (0-1); LYMPHOCYTES ABSOLUTE AUTO 1.18 K/mm3 (0.84-5.20); LYMPHOCYTES PERCENT AUTO 17 % (21-46); MONOCYTES ABSOLUTE AUTO 0.63 K/mm3 (0.16-1.47); MONOCYTES PERCENT AUTO 9 % (4-13); Mean Corpuscular HGB 24.9 pg (26.0-34.0); Mean Corpuscular Volume 89 fL (80-100); Mean Platelet Volume 11.3 fL (9.1-12.4); NEUTROPHILS ABSOLUTE AUTO 4.91 K/mm3 (1.96-9.15); NEUTROPHILS PERCENT AUTO 69 % (41-73); Platelet Count 301 K/mm3 (150-400); RDW Coefficient Variation 17.7 % (11.7-14.2); RDW Standard Deviation 57.6 fL (35.1-46.3); Red Blood Cell Count 3.73 M/mm3 (3.80-5.20); White Blood Cell Count 7.09 K/mm3 (4.00-11.30)
[2018-05-10 05:15] LABS: International Normalized Ratio 1.18
[2018-05-10 05:19] LABS: Albumin, Blood 1.9 g/dL (3.4-5.0); Anion Gap 5 mmol/L (6-16); Blood Urea Nitrogen 34 mg/dL (8-24); Bun/Creatinine Ratio 29.1 (12.0-20.0); CO2, Blood 37 mmol/L (21-32); Calcium, Blood 7.9 mg/dL (8.5-10.1); Chloride, Blood 99 mmol/L (98-108); Creatinine, Blood 1.17 mg/dL (0.40-1.00); Glomerular Filtration Rate 49 (60-); Glucose, Blood 108 mg/dL (70-99); Phosphorus, Blood 1.9 mg/dL (2.5-4.9); Potassium, Blood 3.6 mmol/L (3.5-5.5); Sodium, Blood 141 mmol/L (136-145)
[2018-05-11 05:19] LABS: BASOPHILS ABSOLUTE AUTO 0.06 K/mm3 (0.00-0.23); BASOPHILS PERCENT AUTO 1 % (0-2); EOSINOPHILS ABSOLUTE AUTO 0.31 K/mm3 (0.00-0.68); EOSINOPHILS PERCENT AUTO 4 % (0-6); Hematocrit 36.3 % (33.0-51.0); Hemoglobin 10.3 g/dL (11.5-16.0); IMMATURE GRAN ABSOLUTE AUTO 0.05 K/mm3 (0.00-0.10); IMMATURE GRAN PERCENT AUTO 1 % (0-1); LYMPHOCYTES ABSOLUTE AUTO 1.35 K/mm3 (0.84-5.20); LYMPHOCYTES PERCENT AUTO 18 % (21-46); MONOCYTES ABSOLUTE AUTO 0.66 K/mm3 (0.16-1.47); MONOCYTES PERCENT AUTO 9 % (4-13); Mean Corpuscular HGB 24.6 pg (26.0-34.0); Mean Corpuscular HGB Conc 28.4 g/dL (31.5-36.5); Mean Corpuscular Volume 87 fL (80-100); Mean Platelet Volume 11.2 fL (9.1-12.4); NEUTROPHILS ABSOLUTE AUTO 5.15 K/mm3 (1.96-9.15); NEUTROPHILS PERCENT AUTO 68 % (41-73); NRBC ABSOLUTE 0.02 K/mm3 (0.00-0.02); NRBC Auto 0.3 /100 WBC (0.0-0.2); Platelet Count 381 K/mm3 (150-400); RDW Coefficient Variation 17.8 % (11.7-14.2); RDW Standard Deviation 56.3 fL (35.1-46.3); Red Blood Cell Count 4.18 M/mm3 (3.80-5.20); White Blood Cell Count 7.58 K/mm3 (4.00-11.30)
[2018-05-11 05:37] LABS: Anion Gap 7 mmol/L (6-16); Blood Urea Nitrogen 30 mg/dL (8-24); Bun/Creatinine Ratio 24.6 (12.0-20.0); CO2, Blood 34 mmol/L (21-32); Calcium, Blood 8.4 mg/dL (8.5-10.1); Chloride, Blood 101 mmol/L (98-108); Creatinine, Blood 1.22 mg/dL (0.40-1.00); Glomerular Filtration Rate 47 (60-); Glucose, Blood 107 mg/dL (70-99); Phosphorus, Blood 2.6 mg/dL (2.5-4.9); Potassium, Blood 3.6 mmol/L (3.5-5.5); Sodium, Blood 142 mmol/L (136-145)
[2018-05-12 04:41] LABS: Hematocrit 34.5 % (33.0-51.0); Hemoglobin 9.8 g/dL (11.5-16.0); Mean Corpuscular HGB 24.8 pg (26.0-34.0); Mean Corpuscular HGB Conc 28.4 g/dL (31.5-36.5); Mean Corpuscular Volume 87 fL (80-100); Mean Platelet Volume 10.6 fL (9.1-12.4); Platelet Count 360 K/mm3 (150-400); RDW Coefficient Variation 17.6 % (11.7-14.2); RDW Standard Deviation 56.1 fL (35.1-46.3); Red Blood Cell Count 3.95 M/mm3 (3.80-5.20); White Blood Cell Count 8.02 K/mm3 (4.00-11.30)
[2018-05-12 05:02] LABS: Albumin, Blood 1.9 g/dL (3.4-5.0); Anion Gap 8 mmol/L (6-16); Blood Urea Nitrogen 26 mg/dL (8-24); Bun/Creatinine Ratio 26.5 (12.0-20.0); CO2, Blood 31 mmol/L (21-32); Calcium, Blood 8.2 mg/dL (8.5-10.1); Chloride, Blood 104 mmol/L (98-108); Creatinine, Blood 0.98 mg/dL (0.40-1.00); Glomerular Filtration Rate >60 (60-); Glucose, Blood 135 mg/dL (70-99); Phosphorus, Blood 3.2 mg/dL (2.5-4.9); Potassium, Blood 3.8 mmol/L (3.5-5.5); Sodium, Blood 143 mmol/L (136-145)
[2018-05-13 04:59] LABS: Hematocrit 34.6 % (33.0-51.0); Hemoglobin 9.8 g/dL (11.5-16.0); Mean Corpuscular HGB 24.4 pg (26.0-34.0); Mean Corpuscular HGB Conc 28.3 g/dL (31.5-36.5); Mean Corpuscular Volume 86 fL (80-100); Mean Platelet Volume 10.7 fL (9.1-12.4); Platelet Count 397 K/mm3 (150-400); RDW Coefficient Variation 17.3 % (11.7-14.2); RDW Standard Deviation 54.8 fL (35.1-46.3); Red Blood Cell Count 4.01 M/mm3 (3.80-5.20); White Blood Cell Count 7.22 K/mm3 (4.00-11.30)
[2018-05-13 05:19] LABS: Anion Gap 6 mmol/L (6-16); Blood Urea Nitrogen 22 mg/dL (8-24); Bun/Creatinine Ratio 25.1 (12.0-20.0); CO2, Blood 30 mmol/L (21-32); Calcium, Blood 8.1 mg/dL (8.5-10.1); Chloride, Blood 105 mmol/L (98-108); Creatinine, Blood 0.88 mg/dL (0.40-1.00); Glomerular Filtration Rate >60 (60-); Glucose, Blood 124 mg/dL (70-99); Potassium, Blood 3.9 mmol/L (3.5-5.5); Sodium, Blood 141 mmol/L (136-145)
[2018-05-14 04:46] LABS: Hematocrit 35.5 % (33.0-51.0); Hemoglobin 10.2 g/dL (11.5-16.0); Mean Corpuscular HGB 24.7 pg (26.0-34.0); Mean Corpuscular HGB Conc 28.7 g/dL (31.5-36.5); Mean Corpuscular Volume 86 fL (80-100); Mean Platelet Volume 10.3 fL (9.1-12.4); Platelet Count 399 K/mm3 (150-400); RDW Coefficient Variation 17.2 % (11.7-14.2); RDW Standard Deviation 53.5 fL (35.1-46.3); Red Blood Cell Count 4.13 M/mm3 (3.80-5.20); White Blood Cell Count 6.32 K/mm3 (4.00-11.30)
[2018-05-15 04:58] LABS: Hematocrit 35.2 % (33.0-51.0); Hemoglobin 10.1 g/dL (11.5-16.0); Mean Corpuscular HGB 24.8 pg (26.0-34.0); Mean Corpuscular HGB Conc 28.7 g/dL (31.5-36.5); Mean Corpuscular Volume 87 fL (80-100); Mean Platelet Volume 10.4 fL (9.1-12.4); Platelet Count 440 K/mm3 (150-400); RDW Coefficient Variation 17.2 % (11.7-14.2); RDW Standard Deviation 54.2 fL (35.1-46.3); Red Blood Cell Count 4.07 M/mm3 (3.80-5.20); White Blood Cell Count 6.82 K/mm3 (4.00-11.30)
[2018-05-15 05:21] LABS: Anion Gap 6 mmol/L (6-16); Blood Urea Nitrogen 20 mg/dL (8-24); Bun/Creatinine Ratio 21.6 (12.0-20.0); C-REACTIVE PROTEIN, EXT RANGE 0.874 mg/dL (0.000-0.300); CO2, Blood 30 mmol/L (21-32); Chloride, Blood 107 mmol/L (98-108); Creatinine, Blood 0.93 mg/dL (0.40-1.00); Glomerular Filtration Rate >60 (60-); Glucose, Blood 118 mg/dL (70-99); Potassium, Blood 4.4 mmol/L (3.5-5.5); Sodium, Blood 143 mmol/L (136-145)
[2018-05-16 05:09] LABS: BASOPHILS ABSOLUTE AUTO 0.01 K/mm3 (0.00-0.23); BASOPHILS PERCENT AUTO 0 % (0-2); EOSINOPHILS PERCENT AUTO 0 % (0-6); Hematocrit 34.3 % (33.0-51.0); Hemoglobin 9.8 g/dL (11.5-16.0); IMMATURE GRAN ABSOLUTE AUTO 0.08 K/mm3 (0.00-0.10); IMMATURE GRAN PERCENT AUTO 1 % (0-1); LYMPHOCYTES ABSOLUTE AUTO 1.05 K/mm3 (0.84-5.20); LYMPHOCYTES PERCENT AUTO 15 % (21-46); MONOCYTES ABSOLUTE AUTO 0.45 K/mm3 (0.16-1.47); MONOCYTES PERCENT AUTO 7 % (4-13); Mean Corpuscular HGB 24.1 pg (26.0-34.0); Mean Corpuscular HGB Conc 28.6 g/dL (31.5-36.5); Mean Corpuscular Volume 85 fL (80-100); Mean Platelet Volume 10.9 fL (9.1-12.4); NEUTROPHILS ABSOLUTE AUTO 5.24 K/mm3 (1.96-9.15); NEUTROPHILS PERCENT AUTO 77 % (41-73); Platelet Count 424 K/mm3 (150-400); RDW Standard Deviation 52.1 fL (35.1-46.3); Red Blood Cell Count 4.06 M/mm3 (3.80-5.20); White Blood Cell Count 6.83 K/mm3 (4.00-11.30)
[2018-05-16 05:32] LABS: Calcium, Blood 7.7 mg/dL (8.5-10.1); Creatinine, Blood 1.08 mg/dL (0.40-1.00); Potassium, Blood 4.9 mmol/L (3.5-5.5)
[2018-05-17] MEDS ORDERED: ACET325 PO (13:07)
[2018-05-17] MEDS ORDERED: CEFP200 PO (13:08)
[2018-05-17] MEDS ORDERED: TAMS.4ER PO (13:09)
[2018-05-17] MEDS ORDERED: TRAM50 PO (13:09)
== END 2018-05-17 18:45 | disposition home health service (06) | DRG 264 ==
LOC: ER 16:28 → MEDS 20:03 → PCU 20:03 → MEDS 05-07 13:18 → ENPENDDIS 05-17 11:00 → MEDS 05-17 18:45
PROVIDERS: Family Medicine; Internal Medicine; Physician Assistant
PROC: 0J9N3ZX Drainage of Right Lower Leg Subcutaneous Tissue and Fascia, Percutaneous Approach, Diagnostic (ICD-10-PCS; principal; 2018-05-09)
PROC: 0JBN0ZZ Excision of Right Lower Leg Subcutaneous Tissue and Fascia, Open Approach (ICD-10-PCS; 2018-05-15)
DX: E11.52 Type 2 diabetes mellitus with diabetic peripheral angiopathy with gangrene (principal); G92 Toxic encephalopathy; L03.115 Cellulitis of right lower limb; J96.11 Chronic respiratory failure with hypoxia; I96 Gangrene, not elsewhere classified; L03.116 Cellulitis of left lower limb; Z68.41 Body mass index [BMI] 40.0-44.9, adult; J84.10 Pulmonary fibrosis, unspecified; E88.09 Other disorders of plasma-protein metabolism, not elsewhere classified; E11.40 Type 2 diabetes mellitus with diabetic neuropathy, unspecified; E11.22 Type 2 diabetes mellitus with diabetic chronic kidney disease; Z99.81 Dependence on supplemental oxygen; I48.0 Paroxysmal atrial fibrillation; E66.01 Morbid (severe) obesity due to excess calories; M10.30 Gout due to renal impairment, unspecified site; E83.39 Other disorders of phosphorus metabolism; E11.65 Type 2 diabetes mellitus with hyperglycemia; N18.3 Chronic kidney disease, stage 3 (moderate); I12.9 Hypertensive chronic kidney disease with stage 1 through stage 4 chronic kidney disease, or unspecified chronic kidney disease; I89.0 Lymphedema, not elsewhere classified; S80.11XA Contusion of right lower leg, initial encounter; E03.9 Hypothyroidism, unspecified; E86.0 Dehydration; I78.1 Nevus, non-neoplastic; W19.XXXA Unspecified fall, initial encounter; E87.6 Hypokalemia; R29.6 Repeated falls; S70.02XA Contusion of left hip, initial encounter; S70.01XA Contusion of right hip, initial encounter; R60.1 Generalized edema; B95.61 Methicillin susceptible Staphylococcus aureus infection as the cause of diseases classified elsewhere; T40.605A Adverse effect of unspecified narcotics, initial encounter; Y92.230 Patient room in hospital as the place of occurrence of the external cause; T42.6X5A Adverse effect of other antiepileptic and sedative-hypnotic drugs, initial encounter; D63.1 Anemia in chronic kidney disease; R10.9 Unspecified abdominal pain; F41.9 Anxiety disorder, unspecified; R33.0 Drug induced retention of urine; T48.3X5A Adverse effect of antitussives, initial encounter; F32.9 Major depressive disorder, single episode, unspecified; Z88.1 Allergy status to other antibiotic agents; Z88.6 Allergy status to analgesic agent; Z88.5 Allergy status to narcotic agent; Z88.8 Allergy status to other drugs, medicaments and biological substances; Z79.899 Other long term (current) drug therapy; Z79.01 Long term (current) use of anticoagulants; Z91.81 History of falling; Z79.4 Long term (current) use of insulin; Z86.14 Personal history of Methicillin resistant Staphylococcus aureus infection
CPT/HCPCS: 36415; 51702; 71045; 73590; 73700; 76705; 76882; 80048; 80053; 80069; 81003; 82140; 82947; 83605; 83735; 84439; 85014; 85018; 85025; 85027; 85610; 86140; 87040; 87070; 87075; 87205; 93306; 94640; 94760; 96374; 97110; 97116; 97162; 97166; 97530; 97535; 99285-25; G8978; G8979; G8980; G8987; G8988; J0690; J1100; J1650; J2250; J2370; J2405; J3010; J3480; J7030; P9041

== ENCOUNTER 2018-07-09 18:01 | Observation (INO) | payer OTHER ==
[~2018-07-09] VITALS: Ht 162.6 cm; Wt 114.4 kg
[~2018-07-09 18:01] MED LIST changes: -CALCIUM CITRATE PO; +CEFP200 PO; +CLARITIN10 MG PO; +CYAN500 PO; +EMU-LAC HYDRAT120 ML TOP; +FURO20 PO; +INSULANPEN SC; +KLOR-CON SPRIN10 MEQ PO; +LEVFLO250; +LOPE2C PO; +NYSTRIT TOP; +TAMS.4ER PO; +TRAM50 PO; +TRIA15CR3 TOP; +TUMS PO
[2018-07-09 18:53] LABS: BASOPHILS ABSOLUTE AUTO 0.05 K/mm3 (0.00-0.23); BASOPHILS PERCENT AUTO 1 % (0-2); EOSINOPHILS ABSOLUTE AUTO 0.43 K/mm3 (0.00-0.68); EOSINOPHILS PERCENT AUTO 5 % (0-6); Hematocrit 33.4 % (33.0-51.0); Hemoglobin 9.2 g/dL (11.5-16.0); IMMATURE GRAN ABSOLUTE AUTO 0.11 K/mm3 (0.00-0.10); IMMATURE GRAN PERCENT AUTO 1 % (0-1); LYMPHOCYTES PERCENT AUTO 18 % (21-46); MONOCYTES ABSOLUTE AUTO 0.72 K/mm3 (0.16-1.47); MONOCYTES PERCENT AUTO 9 % (4-13); Mean Corpuscular HGB 23.6 pg (26.0-34.0); Mean Corpuscular HGB Conc 27.5 g/dL (31.5-36.5); Mean Corpuscular Volume 86 fL (80-100); Mean Platelet Volume 9.7 fL (9.1-12.4); NEUTROPHILS ABSOLUTE AUTO 5.69 K/mm3 (1.96-9.15); NEUTROPHILS PERCENT AUTO 67 % (41-73); Platelet Count 398 K/mm3 (150-400); RDW Coefficient Variation 18.8 % (11.7-14.2); RDW Standard Deviation 57.9 fL (35.1-46.3)
[2018-07-09 19:22] LABS: Albumin, Blood 2.3 g/dL (3.4-5.0); Albumin/Globulin Ratio 0.4 (0.8-1.8); Bilirubin, Total 0.3 mg/dL (0.1-1.0); Bun/Creatinine Ratio 53.8 (12.0-20.0); Calcium, Blood 6.8 mg/dL (8.5-10.1); Creatinine, Blood 1.32 mg/dL (0.40-1.00); Globulin, Blood 5.2 g/dL (2.2-4.0); Potassium, Blood 3.7 mmol/L (3.5-5.5); Total Protein, Blood 7.5 g/dL (6.4-8.2)
[2018-07-10] MEDS ORDERED: BUME1 PO (00:26)
[2018-07-10] MEDS ORDERED: OXYC1TAB11 PO (00:41)
[2018-07-10 06:00] LABS: BASOPHILS ABSOLUTE AUTO 0.04 K/mm3 (0.00-0.23); BASOPHILS PERCENT AUTO 1 % (0-2); EOSINOPHILS ABSOLUTE AUTO 0.31 K/mm3 (0.00-0.68); EOSINOPHILS PERCENT AUTO 4 % (0-6); Hematocrit 29.9 % (33.0-51.0); Hemoglobin 8.4 g/dL (11.5-16.0); IMMATURE GRAN ABSOLUTE AUTO 0.07 K/mm3 (0.00-0.10); IMMATURE GRAN PERCENT AUTO 1 % (0-1); LYMPHOCYTES ABSOLUTE AUTO 1.05 K/mm3 (0.84-5.20); LYMPHOCYTES PERCENT AUTO 13 % (21-46); MONOCYTES PERCENT AUTO 9 % (4-13); Mean Corpuscular HGB 23.3 pg (26.0-34.0); Mean Corpuscular HGB Conc 28.1 g/dL (31.5-36.5); Mean Platelet Volume 10.1 fL (9.1-12.4); NEUTROPHILS ABSOLUTE AUTO 5.81 K/mm3 (1.96-9.15); NEUTROPHILS PERCENT AUTO 73 % (41-73); Platelet Count 359 K/mm3 (150-400); RDW Coefficient Variation 18.7 % (11.7-14.2); RDW Standard Deviation 55.6 fL (35.1-46.3); White Blood Cell Count 7.98 K/mm3 (4.00-11.30)
[2018-07-10 06:01] LABS: Mean Corpuscular Volume 83 fL (80-100)
[2018-07-10 06:22] LABS: Bun/Creatinine Ratio 50.9 (12.0-20.0); Calcium, Blood 6.3 mg/dL (8.5-10.1); Creatinine, Blood 1.06 mg/dL (0.40-1.00); Potassium, Blood 3.5 mmol/L (3.5-5.5)
[2018-07-10] MEDS ORDERED: Oxycodone-Apap1 EAC3 PO (07:40)
== END 2018-07-10 15:26 | disposition home or self-care (01) ==
LOC: ER 18:01 → MEDS 18:02 → ER 21:55 → MEDS 21:55 → ENPENDDIS 07-10 12:39 → MEDS 07-10 15:26
PROVIDERS: Emergency Medicine; Internal Medicine
DX: L23.1 Allergic contact dermatitis due to adhesives (principal); L97.919 Non-pressure chronic ulcer of unspecified part of right lower leg with unspecified severity; Z68.41 Body mass index [BMI] 40.0-44.9, adult; E11.622 Type 2 diabetes mellitus with other skin ulcer; J84.10 Pulmonary fibrosis, unspecified; I48.91 Unspecified atrial fibrillation; M19.90 Unspecified osteoarthritis, unspecified site; N18.9 Chronic kidney disease, unspecified; E11.22 Type 2 diabetes mellitus with diabetic chronic kidney disease; E11.51 Type 2 diabetes mellitus with diabetic peripheral angiopathy without gangrene; J45.909 Unspecified asthma, uncomplicated; Z87.891 Personal history of nicotine dependence; E66.01 Morbid (severe) obesity due to excess calories; D63.1 Anemia in chronic kidney disease; E83.51 Hypocalcemia; E11.40 Type 2 diabetes mellitus with diabetic neuropathy, unspecified; K21.9 Gastro-esophageal reflux disease without esophagitis; Z79.4 Long term (current) use of insulin; I12.9 Hypertensive chronic kidney disease with stage 1 through stage 4 chronic kidney disease, or unspecified chronic kidney disease
CPT/HCPCS: 36415; 73030; 80048; 80053; 82947; 85025; 90686; 96365; 96366; 96368; 99284-25; A9270; J0610; J3370; J7030; J7050

== ENCOUNTER 2019-02-28 20:29 | Emergency (ER) | payer OTHER ==
[~2019-02-28] VITALS: Ht 160 cm; Wt 112.0 kg
[~2019-02-28 20:29] MED LIST changes: +ALLO300 PO; +CALC.25 PO; +CLOBET30L; +Celexa40 MG PO; +Flonase 0.05% N16 GM; +K-Dur20 MEQ PO; +LACT5TL; +LEVSOD137 PO; +Lantus100 UNIT/1 SC; +METO50ER PO; +OXYC1TAB11 PO; +Oxycodone-Apap1 EAC3 PO; +Pantoprazole So40 MG PO; +ROPI2 PO; +Triamcinolone A15 G3 TP; +VANC125 PO; +VANCOMYCIN1.5 GM/250 IV; +VITAMIN B122500 MC1 PO
[2019-02-28] MEDS ORDERED: BUME2 PO (21:23)
[2019-02-28] MEDS ORDERED: Micro-K10 MEQ PO (21:23)
[2019-02-28] MEDS ORDERED: METO5 PO (21:24)
[2019-02-28] MEDS ORDERED: QVAR REDIHALE10.6 G1 INH (21:25)
[2019-02-28] MEDS ORDERED: ROPI.25 PO (21:26)
[2019-02-28] MEDS ORDERED: PROM25 PO (21:26)
[2019-02-28] MEDS ORDERED: CALC.25 PO (21:27)
[2019-02-28] MEDS ORDERED: CYAN500 PO (21:28)
[2019-02-28] MEDS ORDERED: Geri-Hydrolac140 GM TOP (21:29)
[2019-02-28] MEDS ORDERED: MULTI VITAMIN1 EACH PO (21:30)
[2019-02-28] MEDS ORDERED: MONT10T PO (21:32)
[2019-02-28] MEDS ORDERED: CLARITIN10 MG PO (21:32)
[2019-02-28] MEDS ORDERED: ATOR10 PO (21:33)
[2019-02-28 21:34] LABS: BASOPHILS ABSOLUTE AUTO 0.03 K/mm3 (0.00-0.23); BASOPHILS PERCENT AUTO 0 % (0-2); EOSINOPHILS ABSOLUTE AUTO 0.54 K/mm3 (0.00-0.68); EOSINOPHILS PERCENT AUTO 6 % (0-6); Hematocrit 24.6 % (33.0-51.0); Hemoglobin 6.4 g/dL (11.5-16.0); IMMATURE GRAN ABSOLUTE AUTO 0.06 K/mm3 (0.00-0.10); IMMATURE GRAN PERCENT AUTO 1 % (0-1); LYMPHOCYTES ABSOLUTE AUTO 1.61 K/mm3 (0.84-5.20); LYMPHOCYTES PERCENT AUTO 16 % (21-46); MONOCYTES ABSOLUTE AUTO 0.75 K/mm3 (0.16-1.47); MONOCYTES PERCENT AUTO 8 % (4-13); Mean Corpuscular HGB 21.6 pg (26.0-34.0); Mean Corpuscular Volume 83 fL (80-100); Mean Platelet Volume 11.5 fL (9.1-12.4); NEUTROPHILS ABSOLUTE AUTO 6.86 K/mm3 (1.96-9.15); NEUTROPHILS PERCENT AUTO 70 % (41-73); NRBC ABSOLUTE 0.03 K/mm3 (0.00-0.02); NRBC Auto 0.3 /100 WBC (0.0-0.2); Platelet Count 290 K/mm3 (150-400); RDW Coefficient Variation 18.7 % (11.7-14.2); RDW Standard Deviation 55.8 fL (35.1-46.3); Red Blood Cell Count 2.96 M/mm3 (3.80-5.20); White Blood Cell Count 9.85 K/mm3 (4.00-11.30)
[2019-02-28 22:05] LABS: Albumin, Blood 2.2 g/dL (3.4-5.0); Albumin/Globulin Ratio 0.5 (0.8-1.8); Bilirubin, Total 0.2 mg/dL (0.1-1.0); Bun/Creatinine Ratio 47.1 (12.0-20.0); Calcium, Blood 7.2 mg/dL (8.5-10.1); Creatinine, Blood 1.55 mg/dL (0.40-1.00); Globulin, Blood 4.1 g/dL (2.2-4.0); Potassium, Blood 3.8 mmol/L (3.5-5.5); Total Protein, Blood 6.3 g/dL (6.4-8.2)
== END 2019-03-01 03:00 | disposition home or self-care (01) ==
LOC: ER 20:29
PROVIDERS: Emergency Medicine
DX: D64.9 Anemia, unspecified (principal); Z88.0 Allergy status to penicillin; Z88.5 Allergy status to narcotic agent; Z88.8 Allergy status to other drugs, medicaments and biological substances; Z79.899 Other long term (current) drug therapy; Z79.4 Long term (current) use of insulin; E11.22 Type 2 diabetes mellitus with diabetic chronic kidney disease; N18.9 Chronic kidney disease, unspecified; I48.91 Unspecified atrial fibrillation; Z87.891 Personal history of nicotine dependence
CPT/HCPCS: 36415; 36430; 80053; 85025; 86850; 86900; 86901; 86923; 99282-25; J7030; P9016

== ENCOUNTER 2019-03-24 00:16 | Day surgery (SDC) | payer OTHER ==
[2019-03-23 11:08] LABS: Hemoglobin 7.2 g/dL (11.5-16.0)
[~2019-03-24 00:16] MED LIST changes: -ALLO300 PO; +ATOR10 PO; +Bumetanide2 MG PO; +Geri-Hydrolac140 GM TOP; +METO5 PO; +MULTI VITAMIN1 EACH PO; +Micro-K10 MEQ PO; +QVAR REDIHALE10.6 G1 INH; +ROPI.25 PO
--- NOTE | 2019-03-24 08:38 | NUR ---
BIOX 99% ON 3L02 NC, PT REPORTS SHE USES 3L O2.
== END 2019-03-24 12:20 | disposition home or self-care (01) ==
LOC: ATC 00:16
PROVIDERS: Internal Medicine Nephrology
DX: I12.9 Hypertensive chronic kidney disease with stage 1 through stage 4 chronic kidney disease, or unspecified chronic kidney disease (principal); N18.3 Chronic kidney disease, stage 3 (moderate); D63.1 Anemia in chronic kidney disease; Z88.0 Allergy status to penicillin; Z88.6 Allergy status to analgesic agent; Z88.5 Allergy status to narcotic agent
CPT/HCPCS: 36430; 85014; 85018; 86850; 86900; 86901; 86923; 96374; J7050; P9016

== ENCOUNTER 2019-04-12 12:59 | Observation (INO) | payer OTHER ==
[~2019-04-12] VITALS: Ht 162.6 cm; Wt 107.5 kg
[2019-04-12 13:38] LABS: BASOPHILS ABSOLUTE AUTO 0.03 K/mm3 (0.00-0.23); BASOPHILS PERCENT AUTO 0 % (0-2); EOSINOPHILS ABSOLUTE AUTO 0.08 K/mm3 (0.00-0.68); EOSINOPHILS PERCENT AUTO 1 % (0-6); Hematocrit 30.4 % (33.0-51.0); Hemoglobin 8.1 g/dL (11.5-16.0); IMMATURE GRAN ABSOLUTE AUTO 0.09 K/mm3 (0.00-0.10); IMMATURE GRAN PERCENT AUTO 1 % (0-1); LYMPHOCYTES ABSOLUTE AUTO 1.02 K/mm3 (0.84-5.20); LYMPHOCYTES PERCENT AUTO 13 % (21-46); MONOCYTES ABSOLUTE AUTO 1.09 K/mm3 (0.16-1.47); MONOCYTES PERCENT AUTO 14 % (4-13); Mean Corpuscular HGB 22.6 pg (26.0-34.0); Mean Corpuscular HGB Conc 26.6 g/dL (31.5-36.5); Mean Corpuscular Volume 85 fL (80-100); Mean Platelet Volume 11.4 fL (9.1-12.4); NEUTROPHILS ABSOLUTE AUTO 5.58 K/mm3 (1.96-9.15); NEUTROPHILS PERCENT AUTO 71 % (41-73); Platelet Count 348 K/mm3 (150-400); RDW Coefficient Variation 26.3 % (11.7-14.2); Red Blood Cell Count 3.58 M/mm3 (3.80-5.20); White Blood Cell Count 7.89 K/mm3 (4.00-11.30)
[2019-04-12 13:51] LABS: Albumin, Blood 2.2 g/dL (3.4-5.0); Albumin/Globulin Ratio 0.5 (0.8-1.8); Bilirubin, Total 0.6 mg/dL (0.1-1.0); Bun/Creatinine Ratio 58.5 (12.0-20.0); Calcium, Blood 8.4 mg/dL (8.5-10.1); Creatinine, Blood 1.23 mg/dL (0.40-1.00); Globulin, Blood 4.6 g/dL (2.2-4.0); Potassium, Blood 2.7 mmol/L (3.5-5.5); Total Protein, Blood 6.8 g/dL (6.4-8.2)
[2019-04-12] MEDS ORDERED: DULO30 PO (14:54)
[2019-04-12] MEDS ORDERED: ESCI10 PO (14:58)
--- NOTE | 2019-04-12 17:30 | NUR ---
PATIENT ARRIVED VIA GURNEY. A/OX4, BUT SLOW TO RESPOND. 3LO2 VIA WA NOW AND AT BASELINE. MULTIPLE PATCHES TO LEGS/BACK THAT PATIENT STATES IS PSORIASIS. REPORTS RECENT FALLS AND R ANKLE PAIN DUE TO FALL. ANKLE X-RAY COMPLETED THAT DID NOT SHOW ANY FX. PATIENT IS ACHS BLOOD SUGARS, COVERAGE PER SS. K+ AND MAG REPLACED IN ED. DR. DEVLIN TO CONSULT. PATIENT REPORTS THAT SHE LIVES ALONE, BUT HAS CAREGIVERS THAT HELP HER DAILY. CONTACT PRECAUTIONS FOR HX OF MRSA. PATIENT PLACED ON FALL PRECAUTIONS AND ORIENTED TO ROOM AND USE OF CALL LIGHT. GI PANEL TO BE SENT, PATIENT REPORTS DIARRHEA FOR THE LAST SEVERAL DAYS.
[2019-04-12 22:20] LABS: Potassium, Blood 2.7 mmol/L (3.5-5.5)
--- NOTE | 2019-04-13 00:20 | NUR ---
1930 ASSUMED CARE OF PATIENT. ADMIT ASSESSMENT COMPLETED. SHIFT ASSESSMENT DONE. PATIENT IS VERY WEAK AND TIRED. UNABLE TO STAND TO TRANSFER TO [facility] EVEN WITH ASSIST. STAGE1 PRESSURE ULCER PRESENT ON ADMITX LEFT BUTTOCK. PATIENT UNABLE TO TOLERATE BEDPAN. PT INCONTINENT VOID IN THE BED WITH HEAVY OUTPUT. SCANNED POST VOID AND FOUND 60 ML FLUID IN THE BLADDER.
[2019-04-13 05:42] LABS: Hematocrit 29.5 % (33.0-51.0); Hemoglobin 7.7 g/dL (11.5-16.0)
[2019-04-13 06:01] LABS: Albumin, Blood 2.1 g/dL (3.4-5.0); Anion Gap 5 mmol/L (6-16); Blood Urea Nitrogen 54 mg/dL (8-24); Bun/Creatinine Ratio 50.9 (12.0-20.0); CO2, Blood 42 mmol/L (21-32); Chloride, Blood 95 mmol/L (98-108); Creatinine, Blood 1.06 mg/dL (0.40-1.00); Glomerular Filtration Rate 55 (60-); Glucose, Blood 148 mg/dL (70-99); Phosphorus, Blood 2.2 mg/dL (2.5-4.9); Potassium, Blood 2.6 mmol/L (3.5-5.5); Sodium, Blood 142 mmol/L (136-145)
--- NOTE | 2019-04-13 07:45 | NUR ---
PATIENT HAD A LOW POTASSIUM 2.6 AND LOW HGB 7.7AND ORDERS FOR POTASSIUM IVPB AND TYPE AND CROSS WERE RECEIVED. PASSED REPORT AND CARE OF PATIENT TO DAY NURSE
[2019-04-13 13:45] LABS: Bun/Creatinine Ratio 49.5 (12.0-20.0); Calcium, Blood 7.9 mg/dL (8.5-10.1); Creatinine, Blood 1.03 mg/dL (0.40-1.00); Potassium, Blood 3.1 mmol/L (3.5-5.5)
--- NOTE | 2019-04-13 15:59 | NUR ---
NYSTATIN/ELEVATED BP RED/ YEASTY SMELLING UNDER R BREAST. DR. DUKES NOTIFIED. NYSTATIN ORDERED. DR. DUKES NOTIFIED THAT PT BP HAS BEEN ELEVATED. LAST SBP OF 170. WILL CONTINUE TO MONITOR.
--- NOTE | 2019-04-13 17:00 | NUR ---
SHIFT SUMMARY PT RECIEVED ONE K-RIDER, ONE K PHOS, AND ONE UNIT OF BLOOD. PT HAS MORE COLOR IN FACE THIS AFTERNOON. NO OTHER CHANGES IN ASSESSMENT AT THIS TIME. PT VOIDED ONE HEAVY INCONT VOID THIS SHIFT. VSS. PT REPOSITIONED Q2H. A&OX4. WILL CONTINUE TO MONITOR UNTIL TURNOVER IS COMPLETE.
--- NOTE | 2019-04-13 23:44 | NUR ---
TELE MONITOR REPORTS PATIENT CONVERTED BACK TO A-FIB 130 FROM NSR 82 AT SHIFT CHANGE. PATIENT NOTED TO HAVE LEGS OUT OF BED IN PAIN. CNAS' REPOSITIONING PATIENT. PATIENT REPORTS ANKLE PAIN AND OXY 5 MG PO GIVEN PER EMAR. NS INFUSING AT 50 mL/HR. WILL CONTINUE TO MONITOR.
--- NOTE | 2019-04-14 00:13 | NUR ---
PCU BLANKET MAKER REPORTS PATIENT CONVERTED BACK TO NSR 90 FROM A-FIB 130. WILL CONTINUE TO MONITOR.
--- NOTE | 2019-04-14 04:55 | NUR ---
SHIFT SUMMARY PATIENT HAD ONE TELEMETRY EVENT STARTING SHIFT IN NSR 80'S AND CONVERTED TO A-FIB 130 FOR THIRTY MINUTE OR LESS WHEN REPOSITIONED AND IN PAIN. PATIENT CONVERTED BACK TO NSR 90'S AFTER PAIN MEDICATION AND REPOSITIONING. PATIENT WAS PARTIALLY OUT OF BED ACTIVATING BED ALARM. AXO X3 AND SLOW TO RESPOND. ON 3L O2 NC. REPORTED ANKLE PAIN AND RECEIVED OXY MG PO PER EMAR. DENIES SOB AND N/V. PIV REMAINS INTACT. STOOL SAMPLE UNCOLLECTED. CALL LIGHT IN REACH. BED IN LOWEST POSITION. WILL CONTINUE TO MONITOR UNTIL DAY SHIFT NURSE ASSUMES CARE.
[2019-04-14 05:57] LABS: BASOPHILS ABSOLUTE AUTO 0.05 K/mm3 (0.00-0.23); BASOPHILS PERCENT AUTO 0 % (0-2); EOSINOPHILS ABSOLUTE AUTO 0.12 K/mm3 (0.00-0.68); EOSINOPHILS PERCENT AUTO 1 % (0-6); Hematocrit 30.5 % (33.0-51.0); Hemoglobin 8.1 g/dL (11.5-16.0); IMMATURE GRAN ABSOLUTE AUTO 0.12 K/mm3 (0.00-0.10); IMMATURE GRAN PERCENT AUTO 1 % (0-1); LYMPHOCYTES ABSOLUTE AUTO 1.17 K/mm3 (0.84-5.20); LYMPHOCYTES PERCENT AUTO 9 % (21-46); MONOCYTES ABSOLUTE AUTO 1.63 K/mm3 (0.16-1.47); MONOCYTES PERCENT AUTO 13 % (4-13); Mean Corpuscular HGB 22.4 pg (26.0-34.0); Mean Corpuscular HGB Conc 26.6 g/dL (31.5-36.5); Mean Corpuscular Volume 84 fL (80-100); Mean Platelet Volume 12.1 fL (9.1-12.4); NEUTROPHILS ABSOLUTE AUTO 9.32 K/mm3 (1.96-9.15); NEUTROPHILS PERCENT AUTO 75 % (41-73); NRBC ABSOLUTE 0.02 K/mm3 (0.00-0.02); NRBC Auto 0.2 /100 WBC (0.0-0.2); Platelet Count 351 K/mm3 (150-400); RDW Coefficient Variation 24.3 % (11.7-14.2); RDW Standard Deviation 72.8 fL (35.1-46.3); Red Blood Cell Count 3.62 M/mm3 (3.80-5.20); White Blood Cell Count 12.41 K/mm3 (4.00-11.30)
[2019-04-14 06:11] LABS: Anion Gap 4 mmol/L (6-16); Blood Urea Nitrogen 48 mg/dL (8-24); Bun/Creatinine Ratio 43.6 (12.0-20.0); CO2, Blood 40 mmol/L (21-32); Calcium, Blood 7.8 mg/dL (8.5-10.1); Chloride, Blood 95 mmol/L (98-108); Glomerular Filtration Rate 53 (60-); Glucose, Blood 167 mg/dL (70-99); Magnesium, Blood 1.8 mg/dL (1.6-2.4); Phosphorus, Blood 2.3 mg/dL (2.5-4.9); Sodium, Blood 139 mmol/L (136-145)
--- NOTE | 2019-04-14 09:02 | NUR ---
KCL CLARIFICATION THIS RN SPOKE WITH DR. DEVLIN ABOUT DUPLICATE ORDER OF KCL BY DR. DUKES. DR. DEVLIN STATED TO DC DR. JAVED ORDER OF KCL. DR. DEVLIN ASKED TO HAVE A STAT CMP ORDERED 2 HOURS AFTER POTASSIUM INFUSIONS ARE FINISHED. WILL CONTINUE TO MONITOR.
--- NOTE | 2019-04-14 12:12 | NUR ---
PT CRYING DUE TO NAUSEA PT CRYING IN ROOM. PT STATES SHE IS "SO SICK" WHEN ASKED TO DISCRIBE THE PAIN, PT IS UNABLE. PT STATED THAT SHE DID FEEL NAUSEOUS. DR. DUKES CALLED & NOTIFIED. ORDERING PHENERGAN TO ADD TO PT REGIMEN FOR SYMPTOM RELIEF. RT CALLED FOR BREATHING TREATMENT.
[2019-04-14 17:59] LABS: Bun/Creatinine Ratio 42.6 (12.0-20.0); Calcium, Blood 7.7 mg/dL (8.5-10.1); Creatinine, Blood 1.08 mg/dL (0.40-1.00); Potassium, Blood 3.7 mmol/L (3.5-5.5)
--- NOTE | 2019-04-14 18:19 | NUR ---
K 3.7 DR. DEVLIN CALLED WITH RESULT OF BMP. PT ORDERED A OT KCL 10MEQ IV. DR. DEVLIN ALSO ORDERED TO BLADDER SCAN PT & CALL IF RESULTS ARE OVER 200.
--- NOTE | 2019-04-14 18:33 | NUR ---
SHIFT SUMMARY PT UNABLE TO VOID AT THIS TIME BLADDER SCAN REVEALED 335. DR. DEVLIN NOTIIFED. ORDERED TO REPEAT SCAN AT 2100 & CALL HIM WITH RESULT. PT HAS SLIGHT TEMP AT 99.6 F. PT BLANKETS REMOVED, SHEET LEFT ONE, & WET RAG GIVEN FOR COMFORT. PT C/O 10/10 PAIN. MEDICATED PER EMAR. OTHER VITALS STABLE. PT RECIEVING CLINIMIX 50 ML/HR. AWAITING KCL FROM PHARMACY TO START. XR COMPLETED OF R SHOULDER & R WRIST. PT CONTINUES TO WINCE IN PAIN WHEN R SHOULDER/WRIST IS MOVED. NO OTHER CHANGES IN ASSESSMENT AT THIS TIME. WILL CONTINUE TO MONITOR UNTIL TURNOVER IS COMPLETE.
--- NOTE | 2019-04-14 21:16 | NUR ---
DR DEVLIN NOTIFIED WITH BLADDER SCAN OF 91. WILL CONTINUE TO MONITOR.
--- NOTE | 2019-04-15 04:11 | NUR ---
SALINE NOSTRIL SPRAY ORDERED BY HOSPITALIST DR MCCABE FOR DRY NOSTRILS. FAMILY REQUESTED SPRAY.
--- NOTE | 2019-04-15 04:41 | NUR ---
SHIFT SUMMARY PATIENT REMAINS MOSTLY LETHARGIC T/O SHIFT. WHEN ASKED HOW SHE MANAGES HER DIABETES, PATIENT SPOKE IN CLEAR SENTENCES AND WAS INFORMATIVE AND RETURNED BACK TO MOANING. PATIENT NOT ABLE TO EXPRESS HER NEEDS AT THIS TIME. AXO X 3 WITH CONFUSION. PIVS REMAIN INTACT. IV ABX INFUSED. CLINIMIX INFUSING AT 50 mL/HR. CBG 193. ON 3L O2 NC. SON PRESENT NEAR MIDNIGHT AND REPORTS PATIENT HAVING TROUBLE BREATHING BUT STATING 95% AND HIGHER. RT CALLED IN FOR BREATHING TX. SON ASKED TO ORDER SALINE NASAL SPRAY AND DONE. WELT POCKET MACHINE OPERATOR REPORTS NSR W/PVC AT 84. DR DEVLIN NOTIFIED OF BLADDER SCAN OF 91mL PER NURSE NOTIFY. CALL LIGHT IN REACH. BED IN LOWEST POSITION. WILL CONTINUE TO MONITOR UNTIL DAY SHIFT NURSE ASSUMES CARE.
[2019-04-15 05:30] LABS: Hematocrit 28.6 % (33.0-51.0); Hemoglobin 7.8 g/dL (11.5-16.0)
[2019-04-15 05:51] LABS: Albumin, Blood 1.7 g/dL (3.4-5.0); Anion Gap 1 mmol/L (6-16); Blood Urea Nitrogen 42 mg/dL (8-24); Bun/Creatinine Ratio 44.9 (12.0-20.0); CO2, Blood 40 mmol/L (21-32); Calcium, Blood 7.8 mg/dL (8.5-10.1); Chloride, Blood 97 mmol/L (98-108); Creatinine, Blood 0.94 mg/dL (0.40-1.00); Glomerular Filtration Rate >60 (60-); Glucose, Blood 211 mg/dL (70-99); Phosphorus, Blood 3.1 mg/dL (2.5-4.9); Potassium, Blood 3.8 mmol/L (3.5-5.5); Sodium, Blood 138 mmol/L (136-145)
[2019-04-15 08:09] LABS: BASOPHILS ABSOLUTE AUTO 0.06 K/mm3 (0.00-0.23); BASOPHILS PERCENT AUTO 1 % (0-2); EOSINOPHILS ABSOLUTE AUTO 0.33 K/mm3 (0.00-0.68); EOSINOPHILS PERCENT AUTO 3 % (0-6); Hematocrit 28.8 % (33.0-51.0); Hemoglobin 7.8 g/dL (11.5-16.0); IMMATURE GRAN ABSOLUTE AUTO 0.11 K/mm3 (0.00-0.10); IMMATURE GRAN PERCENT AUTO 1 % (0-1); LYMPHOCYTES ABSOLUTE AUTO 1.02 K/mm3 (0.84-5.20); LYMPHOCYTES PERCENT AUTO 9 % (21-46); MONOCYTES ABSOLUTE AUTO 1.09 K/mm3 (0.16-1.47); MONOCYTES PERCENT AUTO 9 % (4-13); Mean Corpuscular HGB 22.8 pg (26.0-34.0); Mean Corpuscular HGB Conc 27.1 g/dL (31.5-36.5); Mean Corpuscular Volume 84 fL (80-100); Mean Platelet Volume 11.5 fL (9.1-12.4); NEUTROPHILS PERCENT AUTO 78 % (41-73); NRBC ABSOLUTE 0.02 K/mm3 (0.00-0.02); NRBC Auto 0.2 /100 WBC (0.0-0.2); Platelet Count 333 K/mm3 (150-400); RDW Coefficient Variation 24.3 % (11.7-14.2); RDW Standard Deviation 73.3 fL (35.1-46.3); Red Blood Cell Count 3.42 M/mm3 (3.80-5.20); White Blood Cell Count 11.61 K/mm3 (4.00-11.30)
--- NOTE | 2019-04-15 11:05 | NUR ---
[place] [facility] CON[facility] THIS RN & REQUESTED THAT DR. RIVERA CALL & SPEAK WITH THEIR TRANSPLANT CARDIOLOGY TO ASSIST WITH THE PTS HX OF HEART TRANSPLANT. NUMBER TAKEN & GIVEN TO DR. RIVERA. WILL CONTINUE TO MONITOR
--- NOTE | 2019-04-15 15:18 | NUR ---
met with patient and her daughter. pt is somulent mildly labored in her breathing, calls out and moans she have very dry eyes and stomitsis. reviewed with daughter the patients needs and plan of care. [facility]. she lives alone and will not move because of her pets. she has been astranged from her for 20 years. she has three childen reviewed with daughter that the eldest would be default decision maker. the y seem cohesive on their decisions. Daughter says the son youngest son struggles with the changes. We reviewed code status, POA, vivar. We reviewed prognoisis, her care from doctor pike and end stage liver and lung disease. We reviewed hospice. Advised daughter of plan of care and what we are doing. Advised that if she does not improve or recover the will discuss hospice. reviewed changing code status . Daughter teafull but got some relif with the conversation. she will review with brothers. Review needs with nurse patients dry eyes and sore mourth and care needs.
--- NOTE | 2019-04-15 17:38 | NUR ---
SHIFT SUMMARY PT GIVEN A UNIT OF PRBC'S THIS SHIFT. PT VERY LETHARGIC THIS AM RESULTING IN PT UNABLE TO EAT. PT MORE ALERT THIS EVENING. PT TOELRATING PO SEIRRA MIST. WILL ENCOURAGE PO INTAKE FOR DINNER. PT GIVEN TX TYLENOL FOR FEVER. IMPROVED FROM 100.4 F - 99.6 F. PT HYPERTENSIVE BUT STABLE. OTHER VITALS STABLE. BREATHING TREATMENTS NEEDED. NO OTHER CHANGES IN ASSESSMENT AT THIS TIME. WILL CONTINUE TO MONITOR UNTIL TURNOVER IS COMPLETE. PALLITIVE CARE SPOKE WITH FAMILY & PT THIS SHIFT.
--- NOTE | 2019-04-15 20:57 | NUR ---
met with son to review patient and answer questions. Extensive time reviewing prognosis and code status and disease managment.
--- NOTE | 2019-04-15 21:00 | NUR ---
KPS score is 30% PPS score 30%
[2019-04-16 05:34] LABS: Hemoglobin 8.8 g/dL (11.5-16.0)
--- NOTE | 2019-04-16 05:42 | NUR ---
SHIFT SUMMARY PT HAS SLEPT FAIR DURING THE NIGHT, HAS USED THE BEDPAN A FEW TIMES DURINGT THE NIGHT. VOIDS IN LARGE AMOUNTS 500 ML'S AT A TIME. PT ALSO HAS HAD A FEW PRN BREATHING TREATMENTS WELL. PT ALERT WHEN FAMILY HERE WITH HER. WILL CONTINUE TO MONITOR.
[2019-04-16 05:59] LABS: Albumin, Blood 1.7 g/dL (3.4-5.0); Anion Gap 3 mmol/L (6-16); Blood Urea Nitrogen 42 mg/dL (8-24); Bun/Creatinine Ratio 46.9 (12.0-20.0); CO2, Blood 36 mmol/L (21-32); Calcium, Blood 8.3 mg/dL (8.5-10.1); Chloride, Blood 102 mmol/L (98-108); Glomerular Filtration Rate >60 (60-); Glucose, Blood 182 mg/dL (70-99); Phosphorus, Blood 4.1 mg/dL (2.5-4.9); Potassium, Blood 4.5 mmol/L (3.5-5.5); Sodium, Blood 141 mmol/L (136-145)
[2019-04-16 12:17] LABS: Adenovirus F 40/41 Not Detected (NOT DETECT); Astrovirus Not Detected (NOT DETECT); Campylobacter Sp Not Detected (NOT DETECT); Cryptosporidium Not Detected (NOT DETECT); Cyclospora Cayetanensis Not Detected (NOT DETECT); E. Coli O157 Not Detected (NOT DETECT); Entamoeba Histolytica Not Detected (NOT DETECT); Enteroaggregative E. coli-EAEC Not Detected (NOT DETECT); Enteropathogenic E. coli-EPEC Not Detected (NOT DETECT); Enterotoxigenic E. coli-ETEC Not Detected (NOT DETECT); Giardia Lamblia Not Detected (NOT DETECT); Norovirus GI/GII Not Detected (NOT DETECT); Plesiomonas Shigelloides Not Detected (NOT DETECT); Rotavirus A Not Detected (NOT DETECT); Salmonella Sp Not Detected (NOT DETECT); Sapovirus Not Detected (NOT DETECT); Shiga Toxin-prod E. coli-STEC Not Detected (NOT DETECT); Shigella/Enteroin E. coli-EIEC Not Detected (NOT DETECT); Vibrio Cholerae Not Detected (NOT DETECT); Vibrio Sp Not Detected (NOT DETECT); Yersinia Enterocolitica Not Detected (NOT DETECT)
[2019-04-16 13:57] LABS: Vancomycin, Trough 22.4 ug/mL (5.0-10.0)
--- NOTE | 2019-04-16 17:37 | NUR ---
PATIENT UP TO CHAIR FOR BREAKFAST AND LUNCH AND USED BSC THIS SHIFT. UP WITH FWW AND 1-2 ASSIST. APPETITE AND STRENGTH HAVE IMPROVED. 3LO2 TO MAINTAIN SATS HERE AND AT BASELINE. VSS THIS SHIFT. ACHS BLOOD SUGARS, COVERAGE PER EMAR. PATIENT STATES THAT SHE "FEELS BETTER." ZOFRAN GIVEN THIS EVENING FOR MILD NAUSEA. OXYCODONE TO TREAT PAIN, MOSTLY IN R WRIST THIS SHIFT. CLINIMIX RUNNING AT 50ML/HR TO 20G IV IN L FA. 20G IV TO R AC WNL AND SL. PRESSURE SORE TO R BUTTOCKS REDRESSED THIS SHIFT. CREAM APPLIED TO PSORIASIS PATCHES ON LEGS AND BACK. PATIENT WITHDRAWN AT TIMES, DOES CALL FOR ASSISTANCE. FALL PRECAUTIONS IN PLACE.
--- NOTE | 2019-04-16 18:25 | NUR ---
Clinical Visit; Difficult visit with pt and family. Reviewed code status. She wants to remain full code. Sons would like to talk about placement, and in fact would not stop talking about it. They are trying to talk pt into it. They are also expressing much guilt for moving away and/or not being attentive. Both sons started crying during the visit. Pt was trying to console both. She would like to keep her life to watch her grandchildren grow up. Her son told her that if she would accept placement, he would try harder to adopt children and his girlfriend. Encouraged to have a patient centered conversation. Very emotional sons were very self centered in their needs from the pt. Will remain available. Applied medication to skin, per eMAR. This is documented on eMAR. Follow up conversation when sons are not present. They are distracting and too emotional. They seem to not want to honor her wishes for full code and staying independent. Care managers to follow up on her placement - will advocate for pt wishes. nursing home social worker consult placed to request follow up.
--- NOTE | 2019-04-17 05:11 | NUR ---
SHIFT SUMMARY PT SLEPT SOME DURING THE NIGHT, HAD VISITOR UNTIL EARLY THIS AM. SALINE LOCK R AC NOT FLUSHING, DC'D WNL. PT HAVING SOME NAUSEA DURING THE NIGHT, ZOFRAN GIVEN. ALSO MEDICATED FOR PAIN X1 THIS SHIFT. HAS BEEN MORE ALERT TONIGHT AND ALSO USING BSC WITH ASSISTANCE AND FWW. OXYGEN BUMPED UP TO 4L/NC PER PT REQUEST STATES SHE DOES THIS AT HOME WHEN FEELING SHORT OF BREATH. WILL CONTINUE TO MONITOR.
[2019-04-17 05:19] LABS: BASOPHILS ABSOLUTE AUTO 0.06 K/mm3 (0.00-0.23); BASOPHILS PERCENT AUTO 1 % (0-2); EOSINOPHILS ABSOLUTE AUTO 0.62 K/mm3 (0.00-0.68); EOSINOPHILS PERCENT AUTO 7 % (0-6); Hematocrit 32.3 % (33.0-51.0); Hemoglobin 8.7 g/dL (11.5-16.0); IMMATURE GRAN ABSOLUTE AUTO 0.07 K/mm3 (0.00-0.10); IMMATURE GRAN PERCENT AUTO 1 % (0-1); LYMPHOCYTES ABSOLUTE AUTO 0.71 K/mm3 (0.84-5.20); LYMPHOCYTES PERCENT AUTO 8 % (21-46); MONOCYTES ABSOLUTE AUTO 0.66 K/mm3 (0.16-1.47); MONOCYTES PERCENT AUTO 8 % (4-13); Mean Corpuscular HGB 22.6 pg (26.0-34.0); Mean Corpuscular HGB Conc 26.9 g/dL (31.5-36.5); Mean Corpuscular Volume 84 fL (80-100); Mean Platelet Volume 11.3 fL (9.1-12.4); NEUTROPHILS ABSOLUTE AUTO 6.45 K/mm3 (1.96-9.15); NEUTROPHILS PERCENT AUTO 75 % (41-73); Platelet Count 439 K/mm3 (150-400); RDW Standard Deviation 71.9 fL (35.1-46.3); Red Blood Cell Count 3.85 M/mm3 (3.80-5.20); White Blood Cell Count 8.57 K/mm3 (4.00-11.30)
[2019-04-17 05:44] LABS: Albumin, Blood 1.8 g/dL (3.4-5.0); Anion Gap 2 mmol/L (6-16); Blood Urea Nitrogen 39 mg/dL (8-24); Bun/Creatinine Ratio 44.5 (12.0-20.0); CO2, Blood 35 mmol/L (21-32); Calcium, Blood 8.5 mg/dL (8.5-10.1); Chloride, Blood 102 mmol/L (98-108); Creatinine, Blood 0.88 mg/dL (0.40-1.00); Glomerular Filtration Rate >60 (60-); Glucose, Blood 181 mg/dL (70-99); Phosphorus, Blood 3.5 mg/dL (2.5-4.9); Potassium, Blood 4.1 mmol/L (3.5-5.5); Sodium, Blood 139 mmol/L (136-145)
[2019-04-17] MEDS ORDERED: MIRT15 PO (15:55)
[2019-04-17] MEDS ORDERED: PERIDEX15 ML MM (16:04)
[2019-04-17] MEDS ORDERED: CITA20 PO (16:06)
[2019-04-17] MEDS ORDERED: CLOP75 PO (16:08)
[2019-04-17] MEDS ORDERED: FAMO20 PO (16:10)
[2019-04-17] MEDS ORDERED: ACET325 PO (16:11)
[2019-04-17] MEDS ORDERED: METF500 PO (16:13)
--- NOTE | 2019-04-17 19:29 | NUR ---
PATIENT CONTINUES TO IMPROVE. SLEPT MMOST OF THE DAY DO TO FAMILY BEING HERE THROUGHOUT THE NIGHT LAST SHIFT. UP TO BSC AND CHAIR WITH FWW AND 1 ASSIST. NEW 20G IV TO R FA WNL AND SL BETWEEN ABX. CONTACT PRECAUTIONS FOR MRSA. PATIENT IS A/OX3, FORGETFUL AT TIMES. USES CALL LIGHT APPROPRIATELY FOR ASSISTANCE. OXYCODONE GIVEN X2 THIS SHIFT TO TREAT GENERALIZED AND R WRIST PAIN. R HAND REMAINS SWOLLEN. CREAM APPLIED TO PSORIASIS PATCHES. ACHS BLOOD SUGARS, COVERAGE PER SS. PATIENT IS CALM AND COOPERATIVE WITH CARE AND USES CALL LIGHT APPROPRIATELY FOR ASSISTANCE.
--- NOTE | 2019-04-18 05:38 | NUR ---
SHIFT SUMMARY PT HAS SLEPT WELL DURING THE NIGHT, VISITORS LEFT FAIRLY EARLY. NO ACUTE EVENTS NOTED, WILL CONTINUE TO MONITOR.
[2019-04-18 07:41] LABS: Hematocrit 35.2 % (33.0-51.0); Hemoglobin 9.3 g/dL (11.5-16.0)
[2019-04-18 07:54] LABS: Albumin, Blood 1.9 g/dL (3.4-5.0); Anion Gap 3 mmol/L (6-16); Blood Urea Nitrogen 35 mg/dL (8-24); Bun/Creatinine Ratio 39.5 (12.0-20.0); CO2, Blood 34 mmol/L (21-32); Calcium, Blood 8.9 mg/dL (8.5-10.1); Chloride, Blood 107 mmol/L (98-108); Creatinine, Blood 0.89 mg/dL (0.40-1.00); Glomerular Filtration Rate >60 (60-); Glucose, Blood 99 mg/dL (70-99); Magnesium, Blood 2.1 mg/dL (1.6-2.4); Phosphorus, Blood 4.2 mg/dL (2.5-4.9); Potassium, Blood 4.6 mmol/L (3.5-5.5); Sodium, Blood 144 mmol/L (136-145)
[2019-04-18 08:05] LABS: Vancomycin, Trough 22.9 ug/mL (5.0-10.0)
--- NOTE | 2019-04-18 16:18 | NUR ---
Family at bedside having a good visit. Pt still having itching to eyes and skin, Review of prn meds available to her. She is also worried about her arm. Supporitve conversation with her and family about rehab and a plan for home. Need to speak with patient about advance directive and intermediate designer care plan.
--- NOTE | 2019-04-18 18:00 | NUR ---
SHIFT SUMMARY. A&OX4, ONE ASSIST TO BATHROOM WITH FWW AND GB. PT IS AWARE OF LIMITATIONS AND CALLS APPROPRIATLY. PT C/O ITCHING R/T PSORIASIS LESIONS, DR. DUKES NOTIFIED AND RECIEVED ORDERS FOR PO BENDADRYL. PT REPORTED RELIEF. NO N/V, OR SOB. DRESSINGS TO BUTTOCKS C/D/I.
[2019-04-19 04:57] LABS: Hematocrit 32.5 % (33.0-51.0); Hemoglobin 8.9 g/dL (11.5-16.0)
--- NOTE | 2019-04-19 05:09 | NUR ---
SHIFT SUMMARY PT HAS BEEN ALERT AND ORIENTED, SLEPT WELL DURING THE NIGHT. HAS BEEN UP TO BATHROOM WITH ASSIST OF 1 AND FWW. OXYGEN REMAINS ON PER NC. NO ACUTE EVENTS OR CHANGES NOTED, WILL CONTINUE TO MONITOR.
[2019-04-19 05:16] LABS: Albumin, Blood 1.8 g/dL (3.4-5.0); Anion Gap 2 mmol/L (6-16); Blood Urea Nitrogen 33 mg/dL (8-24); CO2, Blood 35 mmol/L (21-32); Calcium, Blood 8.6 mg/dL (8.5-10.1); Chloride, Blood 105 mmol/L (98-108); Creatinine, Blood 0.89 mg/dL (0.40-1.00); Glomerular Filtration Rate >60 (60-); Glucose, Blood 77 mg/dL (70-99); Magnesium, Blood 1.6 mg/dL (1.6-2.4); Phosphorus, Blood 3.8 mg/dL (2.5-4.9); Potassium, Blood 4.5 mmol/L (3.5-5.5); Sodium, Blood 142 mmol/L (136-145)
--- NOTE | 2019-04-19 13:46 | NUR ---
Pal Spiritual Care inital visit: Mrs. Roberts was alone in room and quite talkative. She tells me "they keep saying 'this time you're dying' but I always snap back." She lives alone, but has care-givers. Her children also provide physical support when needed. She is not fearful of , but beleives "I will know when it's time." Carie also tells me that 5 years ago, she was diagnosed with Pulmonary Fibrosis and was given five years to live. Five years later, "The scans show no growth." She credits Dr. Mohr with saving her life. "He won't let me " she tells me happily. Carie and I have an easy rapport. She smiled easily and responded well to emotional affirmation and prayer. I will remain available.
[2019-04-19 16:27] LABS: Vancomycin, Trough 20.6 ug/mL (5.0-10.0)
--- NOTE | 2019-04-19 18:29 | NUR ---
Visit with patient review of her symptoms her main complaint is her itching. Had a conversation with pt about future care needs and risk for suffering. Reviewed some of her childrens concerns and discussed assited living. Patient is hopin she can stay independent. Was direct with patient of risks and prognosis. She wants her case picker contacted for a plan she is hoping to get a ramp. Pt evasive on conversation about food and ADL's. Daughter relays that pt struggles each month to make ends meet. closed conversation with supportive conversation on how caring and loving her children are. pt high risk readmission will follow up.
--- NOTE | 2019-04-19 19:03 | NUR ---
PT. SITTING ON EDGE OF BED. NO COMPLAINTS AT THIS TIME. PT. HAS NEW IV IN LEFT AC. UP TO BR WITH FWW. STEADY ON FEET. WENT FOR CT OF RIGHT WRIST TODAY. WRIST SWOLLEN AND WARM TO TOUCH. VANCO BEING GIVEN.HAS PSORIASIS T/O.
--- NOTE | 2019-04-20 05:40 | NUR ---
SHIFT SUMMARY: TOSHIA HAS A HAD A GOOD NIGHT. SHE HAD A FRIEND/FAMILY MEMBER PRESENT FOR MOST OF THE NIGHT, WHO BROUGHT IN HER LITTLE DOG. tHIS MADE HER HAPPY. VS WERE STABLE, SHE DENIED ANY CHEST PAIN OR DISCOMFORT. SHE DID HAVE SOME PAIN TOWARDS BED TIME, MEDICATED PER EMAR. SHE SLEPT THE REST OF THE NIGHT TILL THIS MORNING WHEN SHE HAD TO VOID. MEDS GIVEN PER EMAR. SHE HAD NO ACUTE CHANGES OR CONCERNS. WILL REPORT TO DAY SHIFT RN.
[2019-04-20 07:41] LABS: Anion Gap 4 mmol/L (6-16); Blood Urea Nitrogen 36 mg/dL (8-24); Bun/Creatinine Ratio 35.3 (12.0-20.0); CO2, Blood 35 mmol/L (21-32); Calcium, Blood 8.6 mg/dL (8.5-10.1); Chloride, Blood 104 mmol/L (98-108); Creatinine, Blood 1.02 mg/dL (0.40-1.00); Glomerular Filtration Rate 57 (60-); Glucose, Blood 79 mg/dL (70-99); Magnesium, Blood 1.5 mg/dL (1.6-2.4); Phosphorus, Blood 4.5 mg/dL (2.5-4.9); Potassium, Blood 4.6 mmol/L (3.5-5.5); Sodium, Blood 143 mmol/L (136-145)
--- NOTE | 2019-04-20 15:02 | NUR ---
Clinical Visit: Pt is alert, oriented. She is sitting up in a recliner. She does not have concerns at this time. She reports that she gets to go home. Her sons are not happy with her decision, "but they will be ok." Mild pain, acceptable level. She has plans to spend time with her dog. She states, "I'm just like the energizer robinson." She belives she will be very successful at home and will dedicate herself to being well and active. Will remain available.
[2019-04-20] MEDS ORDERED: AKWA Tears15 ML BOTHEYES (16:24)
[2019-04-20] MEDS ORDERED: DOXY100 PO (16:24)
[2019-04-20] MEDS ORDERED: Pedi-Dri 100,0060 GM TOP (16:25)
--- NOTE | 2019-04-20 17:45 | NUR ---
PT. DISCHARGED HOME WITH DAUGHTER. HOME HEALTH WILL BE FOLLOWING. PT. WILL BE HOME ALONE WITH CAREGIVERS COMING IN A COUPLE OF HOURS A DAY. ENCOURAGED PT. TO USE FALL PRECAUTIONS AT HOME.
== END 2019-04-20 17:57 | disposition home health service (06) ==
LOC: ER 12:59 → MEDS 13:00
PROVIDERS: Emergency Medicine; Internal Medicine; Internal Medicine Nephrology; ADMIT Internal Medicine
DX: A41.9 Sepsis, unspecified organism (principal); R65.20 Severe sepsis without septic shock; N17.9 Acute kidney failure, unspecified; J96.01 Acute respiratory failure with hypoxia; E86.0 Dehydration; E87.6 Hypokalemia; R19.7 Diarrhea, unspecified; E83.42 Hypomagnesemia; L03.119 Cellulitis of unspecified part of limb; I13.0 Hypertensive heart and chronic kidney disease with heart failure and stage 1 through stage 4 chronic kidney disease, or unspecified chronic kidney disease; E11.22 Type 2 diabetes mellitus with diabetic chronic kidney disease; I50.32 Chronic diastolic (congestive) heart failure; N18.3 Chronic kidney disease, stage 3 (moderate); D63.1 Anemia in chronic kidney disease; E11.40 Type 2 diabetes mellitus with diabetic neuropathy, unspecified; I48.2 Chronic atrial fibrillation; I34.0 Nonrheumatic mitral (valve) insufficiency; E03.9 Hypothyroidism, unspecified; E66.01 Morbid (severe) obesity due to excess calories; Z79.899 Other long term (current) drug therapy; Z79.4 Long term (current) use of insulin; Z88.1 Allergy status to other antibiotic agents; Z88.6 Allergy status to analgesic agent; Z88.5 Allergy status to narcotic agent; Z88.8 Allergy status to other drugs, medicaments and biological substances
CPT/HCPCS: 0097U; 36415; 36430; 71045; 71046; 73030; 73110; 73201; 73610; 74176; 80048; 80053; 80069; 80202; 82947; 83605; 83735; 83880; 84132; 84145; 85014; 85018; 85025; 86850; 86900; 86901; 86923; 87040; 87070; 87081; 93005; 93010; 94640; 94760; 96361; 96365; 96366; 96367; 96368; 96372; 96375; 96376; 97110; 97116; 97161; 97164; 97166; 97530; 97535; 99285-25; G0378; J0881; J1940; J2405; J3370; J3475; J3480; J7030; J7050; J7060; J7131; P9016; Q9967

== ENCOUNTER 2019-05-18 08:17 | Day surgery (SDC) | payer OTHER ==
[~2019-05-18] VITALS: Ht 160 cm; Wt 100.6 kg
[~2019-05-18 08:17] MED LIST changes: +AKWA Tears15 ML BOTHEYES; +CLOP75 PO; +ESCI10 PO; +FAMO20 PO; +MIRT15 PO; +PERIDEX15 ML MM; +Pedi-Dri 100,0060 GM TOP
--- NOTE | 2019-05-18 08:41 | NUR ---
History, Chart, Medications and Allergies reviewed before start of procedure. Patient states colon prep results clear. PT USED BATHROOM PRIOR TO START OF PROCEDURE, ABLE TO SEE TO BOTTOM OF TOILET, HAD SOME SEDIMENT. Patient States Post-Procedure ride home has been arranged.
--- NOTE | 2019-05-18 08:51 | NUR ---
05/18/19 0851 Colby Montes Bite Block Placed.3-LEAD EKG REVIEWED WITH PHYSICIAN PRIOR TO START OF PROCEDURE.Patient to ENDO 1History, Chart, Medications and Allergies reviewed before start of procedure.MONITOR INTACT WITH CONTINUOUS PULSE OXIMETRY AND INTERMITTENT BP.O2 VIA N/C INTACT THROUGHOUT SEDATION/PROCEDURE.See Anesthesia record.
--- NOTE | 2019-05-18 10:13 | NUR ---
CARE TURNED OVER TO BASSAM STEELE RN
--- NOTE | 2019-05-18 10:58 | NUR ---
Discharge instructions reviewed with patient. Patient verbalizes understanding. Copy given to patient to take home. Patient States Post-Procedure ride home has been arranged. Discharged via wheelchair to private car for ride home. PT NEEDS ASSISTANCE DUE TO CHRONIC WEAKNESS. NEEDS STANDBY ASSIST.
== END 2019-05-18 22:39 | disposition home or self-care (01) ==
LOC: ORSCMMR 08:17 → ORD 09:45 → ORSCMMR 09:45
PROVIDERS: Internal Medicine Gastroenterology
PROC: 0DB98ZX Excision of Duodenum, Via Natural or Artificial Opening Endoscopic, Diagnostic (ICD-10-PCS; principal; 2019-05-18 09:45)
PROC: 0DBK8ZX Excision of Ascending Colon, Via Natural or Artificial Opening Endoscopic, Diagnostic (ICD-10-PCS; principal; 2019-05-18 09:45)
PROC: 0DB68ZX Excision of Stomach, Via Natural or Artificial Opening Endoscopic, Diagnostic (ICD-10-PCS; principal; 2019-05-18 09:45)
DX: D46.4 Refractory anemia, unspecified (principal); D12.2 Benign neoplasm of ascending colon; E11.9 Type 2 diabetes mellitus without complications; E03.9 Hypothyroidism, unspecified; I48.91 Unspecified atrial fibrillation; F32.9 Major depressive disorder, single episode, unspecified; Z86.718 Personal history of other venous thrombosis and embolism; Z79.01 Long term (current) use of anticoagulants; Z79.84 Long term (current) use of oral hypoglycemic drugs; Z79.899 Other long term (current) drug therapy
CPT/HCPCS: 82947; 88305; 88342; J2405; J2704; J7120

== ENCOUNTER 2019-06-01 18:06 | Observation (INO) | payer OTHER ==
[~2019-06-01] VITALS: Ht 160 cm; Wt 98.0 kg
[2019-06-01 18:47] LABS: BASOPHILS ABSOLUTE AUTO 0.06 K/mm3 (0.00-0.23); BASOPHILS PERCENT AUTO 0 % (0-2); EOSINOPHILS ABSOLUTE AUTO 0.05 K/mm3 (0.00-0.68); EOSINOPHILS PERCENT AUTO 0 % (0-6); Hematocrit 44.5 % (33.0-51.0); Hemoglobin 13.3 g/dL (11.5-16.0); IMMATURE GRAN ABSOLUTE AUTO 0.17 K/mm3 (0.00-0.10); IMMATURE GRAN PERCENT AUTO 1 % (0-1); LYMPHOCYTES ABSOLUTE AUTO 0.68 K/mm3 (0.84-5.20); LYMPHOCYTES PERCENT AUTO 4 % (21-46); MONOCYTES ABSOLUTE AUTO 0.89 K/mm3 (0.16-1.47); MONOCYTES PERCENT AUTO 6 % (4-13); Mean Corpuscular HGB 24.3 pg (26.0-34.0); Mean Corpuscular HGB Conc 29.9 g/dL (31.5-36.5); Mean Corpuscular Volume 81 fL (80-100); Mean Platelet Volume 10.9 fL (9.1-12.4); NEUTROPHILS ABSOLUTE AUTO 13.53 K/mm3 (1.96-9.15); NEUTROPHILS PERCENT AUTO 88 % (41-73); NRBC ABSOLUTE 0.03 K/mm3 (0.00-0.02); NRBC Auto 0.2 /100 WBC (0.0-0.2); Platelet Count 377 K/mm3 (150-400); RDW Coefficient Variation 21.2 % (11.7-14.2); RDW Standard Deviation 59.7 fL (35.1-46.3); Red Blood Cell Count 5.48 M/mm3 (3.80-5.20); White Blood Cell Count 15.38 K/mm3 (4.00-11.30)
[2019-06-01 19:01] LABS: Albumin, Blood 2.6 g/dL (3.4-5.0); Albumin/Globulin Ratio 0.5 (0.8-1.8); Bilirubin, Total 0.6 mg/dL (0.1-1.0); Bun/Creatinine Ratio 41.9 (12.0-20.0); Calcium, Blood 9.3 mg/dL (8.5-10.1); Creatinine, Blood 2.03 mg/dL (0.40-1.00); Globulin, Blood 5.1 g/dL (2.2-4.0); Potassium, Blood 3.2 mmol/L (3.5-5.5); Total Protein, Blood 7.7 g/dL (6.4-8.2)
[2019-06-02 05:57] LABS: BASOPHILS ABSOLUTE AUTO 0.07 K/mm3 (0.00-0.23); BASOPHILS PERCENT AUTO 1 % (0-2); EOSINOPHILS ABSOLUTE AUTO 0.08 K/mm3 (0.00-0.68); EOSINOPHILS PERCENT AUTO 1 % (0-6); Hematocrit 37.5 % (33.0-51.0); Hemoglobin 10.9 g/dL (11.5-16.0); IMMATURE GRAN ABSOLUTE AUTO 0.06 K/mm3 (0.00-0.10); IMMATURE GRAN PERCENT AUTO 1 % (0-1); LYMPHOCYTES ABSOLUTE AUTO 1.48 K/mm3 (0.84-5.20); LYMPHOCYTES PERCENT AUTO 12 % (21-46); MONOCYTES ABSOLUTE AUTO 1.06 K/mm3 (0.16-1.47); MONOCYTES PERCENT AUTO 9 % (4-13); Mean Corpuscular HGB 24.7 pg (26.0-34.0); Mean Corpuscular HGB Conc 29.1 g/dL (31.5-36.5); Mean Platelet Volume 11.4 fL (9.1-12.4); NEUTROPHILS ABSOLUTE AUTO 9.34 K/mm3 (1.96-9.15); NEUTROPHILS PERCENT AUTO 77 % (41-73); NRBC ABSOLUTE 0.02 K/mm3 (0.00-0.02); NRBC Auto 0.2 /100 WBC (0.0-0.2); Platelet Count 298 K/mm3 (150-400); RDW Coefficient Variation 20.7 % (11.7-14.2); RDW Standard Deviation 63.1 fL (35.1-46.3); Red Blood Cell Count 4.42 M/mm3 (3.80-5.20); White Blood Cell Count 12.09 K/mm3 (4.00-11.30)
--- NOTE | 2019-06-02 05:59 | NUR ---
SHIFT SUMMARY PT ADMITTED THIS NIGHT FOR INTRACTABLE NAUSEA AND VOMITING. FULL CODE. CONTACT ISOLATION FOR HX OF MRSA IN NARES AND WOUND. ADA DIET. TELE-NSR AT A RATE OF 72 PER RESEARCH INSTRUCTOR. HEPARIN FOR DVT PROPHYLAXIS. NS AT 200 MLS/HR X1 BAG. PT DOSE OF MAG RUNNING AT THIS TIME, LATE DUE TO COMPLICATION WITH IV. SECOND BAG OF POTASSIUM TO RUN FOLLOWING MAG. PT IS PLEASENT AND COOPERATIVE WITH CARE, ALERT AND ORIENTED. 1-2 PERSON ASSIST WITH TRANSFERS. PT STATED THAT SHE IS VERY WEAK AND FELL AT HOME TRYING TO MAKE IT TO BSC. PT PRESENTS WITH JERKING MOVEMENTS, WHICH PT STATES HAPPENS SOMETIMES AND IS NORMAL FOR HER. THE PT HAS NOT HAD MUCH REST THIS NIGHT DUE TO DIFFICULTIES WITH IV AND NECESSARY CARE PROVIDED. PT DOES APPEAR TO BE SLEEPING COMFORTABLY AT THIS TIME WITH NO APPARENT SIGNS OF ACUTE DISTRESS. ABLE TO MAKE NEEDS KNOWN AND CALL LIGHT IN REACH.
[2019-06-02 06:01] LABS: Mean Corpuscular Volume 85 fL (80-100)
[2019-06-02 06:15] LABS: Calcium, Blood 8.3 mg/dL (8.5-10.1); Creatinine, Blood 1.74 mg/dL (0.40-1.00); Potassium, Blood 3.6 mmol/L (3.5-5.5)
[2019-06-02 14:39] LABS: Potassium, Blood 4.3 mmol/L (3.5-5.5)
--- NOTE | 2019-06-02 16:48 | NUR ---
SHIFT SUMMARY PT UP TO CHAIR THIS AFTERNOON. REPORTS SHE IS FEELING BETTER AND HAS HAD NO NAUSEA SINCE ARRIVAL. DAUGHTER AT BEDSIDE EARLIER THIS MORNING. STATES HER MED LIST IS CURRENT FROM LAST VISIT. LAB CALLED WITH POSITIVE BLOOD CULTURES. NOTIFIED.
--- NOTE | 2019-06-03 04:26 | NUR ---
SHIFT SUMMARY: PT IS ALERT AND ORIENTED. PT IS CALM AND COOPERATIVE WITH CARE. PT CALLS APPROPRIATELY. PT IS A ONE ASSIST TO THE BSC. PT HAD A FRIEND IN VISITING EARLY IN THE NIGHT. PT REPORTS L. HIP PAIN ON ONE OCCASION, GAVE PRN PERCOCET. PT DENIES NAUSEA, VOMITING, AND SOB. PT SLEPT MUCH OF THE NIGHT WHEN NOT DISTURBED. NO ACUTE CHANGES OVERNIGHT. WILL CONTINUE TO MONITOR.
--- NOTE | 2019-06-03 10:06 | NUR ---
Initial Visit: Pt known to this greeting card writer from previous visits. Pt with past medical history of pulmonary fibrosis on 3L O2 at home, type 2 diabetes, afib treated with Xarelto, hypothyroid, chronic pain, neuropathy, CKD stage 3, chronic edema bilateral lower extremities, MRSA infection wound lower leg with wound vac. Pt is sitting up in chair, finished with breakfast. She states that her stomach is still "grumbling." This has been auditory to this RN at times, sitting next to her this visit. Pt reports 7/10 pain, she is ready for pain medication. She experiences constant pain related to a shoulder injury and chronic back pain. She states that she was put back on Cymbalta, since it helps with her depression and her pain. She reports that her oxycodone is being cut back and her doc wants to wean her from this medication. She is afraid that this will impair her ADLs. Her caregiver is there 5 days per week, this is going well. Her meals are made ready for her. She doesn't eat much, but she eats 3 times per day. Pt's neuropathy is to the degree that her feet are completely numb. She states that it feels like she has shoes on all the time, even when her shoes are off. This is annoying, but no longer painful. She states she gets afraid that she will hurt her feet. She tries to check them daily, however, she lacks the mobility and flexability to check them the way she needs to. Encouraged her to have caregiver look at them daily. She is very afraid she will "drop a knife on them or something." Her sleep is difficult. She has a hard time falling asleep and staying asleep. She doesn't particularly want to take more medication to help this symptom though. She reports that she will frequently get to an exhaustion state and sleep better once she reaches that stage. Reviewed strategies to improve her sleep hygiene. She states that she already tries many of the things discussed, but none of it really helps. Discussed and reviewed advance care planning. Reveiwed advance directive. She states she is interested in this. She has 4 children and they are visiting her this weekend. Instructed that this would be a good time to have this conversation. She doesn't favor one child over the other to make her decisions if she is unable, she would rather this be decided amongst the children in an equal manner. Therapeutic conversation. She talks about her children and their careers: she is delighted with her grandchildren and would like to live a very long time for them. No other concerns at this time. Will remain available.
[2019-06-03 11:14] LABS: BASOPHILS ABSOLUTE AUTO 0.04 K/mm3 (0.00-0.23); BASOPHILS PERCENT AUTO 1 % (0-2); EOSINOPHILS ABSOLUTE AUTO 0.18 K/mm3 (0.00-0.68); EOSINOPHILS PERCENT AUTO 2 % (0-6); Hematocrit 37.6 % (33.0-51.0); Hemoglobin 10.9 g/dL (11.5-16.0); IMMATURE GRAN ABSOLUTE AUTO 0.06 K/mm3 (0.00-0.10); IMMATURE GRAN PERCENT AUTO 1 % (0-1); LYMPHOCYTES PERCENT AUTO 13 % (21-46); MONOCYTES ABSOLUTE AUTO 0.88 K/mm3 (0.16-1.47); MONOCYTES PERCENT AUTO 10 % (4-13); Mean Corpuscular HGB 24.5 pg (26.0-34.0); Mean Corpuscular Volume 85 fL (80-100); Mean Platelet Volume 10.9 fL (9.1-12.4); NEUTROPHILS ABSOLUTE AUTO 6.39 K/mm3 (1.96-9.15); NEUTROPHILS PERCENT AUTO 74 % (41-73); Platelet Count 310 K/mm3 (150-400); RDW Coefficient Variation 20.2 % (11.7-14.2); RDW Standard Deviation 62.4 fL (35.1-46.3); Red Blood Cell Count 4.44 M/mm3 (3.80-5.20); White Blood Cell Count 8.65 K/mm3 (4.00-11.30)
[2019-06-03 11:35] LABS: Albumin, Blood 2.1 g/dL (3.4-5.0); Albumin/Globulin Ratio 0.5 (0.8-1.8); Bilirubin, Total 0.4 mg/dL (0.1-1.0); Creatinine, Blood 1.14 mg/dL (0.40-1.00); Globulin, Blood 4.5 g/dL (2.2-4.0); Potassium, Blood 3.6 mmol/L (3.5-5.5); Total Protein, Blood 6.6 g/dL (6.4-8.2)
[2019-06-03] MEDS ORDERED: Florastor250 MG PO (12:57)
[2019-06-03] MEDS ORDERED: CIPR500 PO (12:57)
[2019-06-03] MEDS ORDERED: ONDA4ODT MM (12:57)
[2019-06-03] MEDS ORDERED: METR500 PO (12:58)
--- NOTE | 2019-06-03 16:27 | NUR ---
PT DISCHARGED. PT DISCHARGED AT 1627. PT IN STABLE CONDITION WITH VSS. PT RECIEVED 34CC OF HIS AFTERNOON VANCO. REPORT GIVEN TO UV. PT DENIES QUESTIONS AT THIS TIME. ANTONI PICKED PT UP & TRANSPORTING TO . PG PATENT IN L [facility]
--- NOTE | 2019-06-03 16:29 | NUR ---
PT DISCHARGED PT DISCAHRGED AT 1620. PT IN STABLE CONDITION WITH VSS. PT EDUCATED ON DC INSTRUCTIONS. DENIES FURTHER NEED FOR INSRTUCTION. PT WHEELED OUT BY FAMILY & DRIVEN HOME BY SON.
== END 2019-06-03 16:23 | disposition home health service (06) ==
LOC: ER 18:06 → MEDS 18:07
PROVIDERS: Family Medicine; Physician Assistant; ADMIT Hospitalist
DX: A41.89 Other specified sepsis (principal); K52.1 Toxic gastroenteritis and colitis; B96.7 Clostridium perfringens [C. perfringens] as the cause of diseases classified elsewhere; R65.20 Severe sepsis without septic shock; N17.9 Acute kidney failure, unspecified; K51.00 Ulcerative (chronic) pancolitis without complications; I48.2 Chronic atrial fibrillation; E11.22 Type 2 diabetes mellitus with diabetic chronic kidney disease; N18.3 Chronic kidney disease, stage 3 (moderate); E11.65 Type 2 diabetes mellitus with hyperglycemia; K52.9 Noninfective gastroenteritis and colitis, unspecified; E87.6 Hypokalemia; E83.42 Hypomagnesemia; J84.10 Pulmonary fibrosis, unspecified; E11.40 Type 2 diabetes mellitus with diabetic neuropathy, unspecified; E03.9 Hypothyroidism, unspecified; Z87.891 Personal history of nicotine dependence; Z79.01 Long term (current) use of anticoagulants; Z88.5 Allergy status to narcotic agent; Z88.6 Allergy status to analgesic agent; Z79.899 Other long term (current) drug therapy
CPT/HCPCS: 36415; 36416; 73562-RT; 74176; 80048; 80053; 82947; 83605; 83690; 83735; 84132; 84484; 85025; 87040; 87076; 93005; 93010; 94640; 94760; 96360; 96361; 96365; 96366; 96368; 96372; 99285-25; G0378; J1644; J3475; J3480; J7030; J7120

== ENCOUNTER → 2019-07-30 | Outpatient (CLI) | payer OTHER ==
[~2019-07-30] MED LIST changes: +CIPR500 PO; +Florastor250 MG PO; +METR500 PO
== END | disposition home or self-care (01) ==
LOC: LAB SHORT 17:50 → LAB EV 17:50
DX: R30.9 Painful micturition, unspecified (principal)
CPT/HCPCS: 87077; 87086; 87186

== ENCOUNTER → 2019-09-14 | Outpatient (CLI) | payer OTHER ==
[~2019-09-14] MED LIST changes: +KETO10 PO
== END | disposition home or self-care (01) ==
LOC: OLS 14:30 → LAB SHORT 14:30
DX: R10.32 Left lower quadrant pain (principal)
CPT/HCPCS: 87086

== ENCOUNTER 2019-10-29 19:01 | Emergency (ER) | payer OTHER ==
[~2019-10-29] VITALS: Ht 157.5 cm; Wt 92.1 kg
[~2019-10-29 19:01] MED LIST changes: -KETO10 PO
[2019-10-29] MEDS ORDERED: KETO10 PO (22:14)
== END 2019-10-29 22:43 | disposition home or self-care (01) ==
LOC: ER 19:01
DX: M54.42 Lumbago with sciatica, left side (principal); E11.40 Type 2 diabetes mellitus with diabetic neuropathy, unspecified; E11.22 Type 2 diabetes mellitus with diabetic chronic kidney disease; N18.3 Chronic kidney disease, stage 3 (moderate); I48.91 Unspecified atrial fibrillation; M10.9 Gout, unspecified; E03.9 Hypothyroidism, unspecified; Z88.6 Allergy status to analgesic agent; Z88.1 Allergy status to other antibiotic agents; Z88.8 Allergy status to other drugs, medicaments and biological substances; Z88.5 Allergy status to narcotic agent; Z79.899 Other long term (current) drug therapy; Z79.51 Long term (current) use of inhaled steroids; Z79.4 Long term (current) use of insulin; Z87.891 Personal history of nicotine dependence
CPT/HCPCS: 96372; 99283-25; J1885

== ENCOUNTER 2019-11-08 01:54 | Emergency (ER) | payer OTHER ==
[~2019-11-08 01:54] MED LIST changes: +KETO10 PO
[2019-11-08 04:42] LABS: Source, Urine Catheter
[2019-11-08 04:44] LABS: Bilirubin, Urine Neg (Neg); Blood, Urine 1+ (Neg); Glucose Qualitative, Urine 1+ (Neg); Ketones, Urine Neg (Neg); Leukocyte Esterase, Urine 3+ (Neg); Nitrite, Urine Neg (Neg); Protein, Urine Neg (Neg); Specific Gravity, Urine 1.005 (1.003-1.022); Urobilinogen, Urine NORM (Normal)
[2019-11-08 04:49] LABS: Appearance, Urine Cloudy (Clear); Color, Urine Yellow (P-Yellow); Red Blood Cells, Urine 0-2 /hpf (0-2); White Blood Cells, Urine TNTC /hpf (0-5)
[2019-11-08 04:50] LABS: Bacteria Mod /hpf; Squamous Epithelial Cells Few /hpf (Few)
== END 2019-11-08 05:10 | disposition short-term general hospital (02) ==
LOC: ER 01:54
PROVIDERS: Emergency Medicine
DX: S32.048A Other fracture of fourth lumbar vertebra, initial encounter for closed fracture (principal); W18.30XA Fall on same level, unspecified, initial encounter; Z88.6 Allergy status to analgesic agent; Z88.0 Allergy status to penicillin; Z88.8 Allergy status to other drugs, medicaments and biological substances; Z88.5 Allergy status to narcotic agent; Z79.899 Other long term (current) drug therapy; E11.9 Type 2 diabetes mellitus without complications; I48.91 Unspecified atrial fibrillation; Z87.891 Personal history of nicotine dependence
CPT/HCPCS: 51702; 72070; 72100; 73502; 81001; 87086; 96374-59; 96375-59; 99285-25; J2405; J3010

== ENCOUNTER 2019-12-10 11:21 | Inpatient (IN) | payer OTHER ==
[~2019-12-10] VITALS: Ht 157.5 cm; Wt 89.5 kg
[2019-12-10 12:18] LABS: BASOPHILS ABSOLUTE AUTO 0.14 K/mm3 (0.00-0.23); BASOPHILS PERCENT AUTO 0 % (0-2); EOSINOPHILS ABSOLUTE AUTO 0.01 K/mm3 (0.00-0.68); EOSINOPHILS PERCENT AUTO 0 % (0-6); Hematocrit 37.9 % (33.0-51.0); Hemoglobin 10.4 g/dL (11.5-16.0); IMMATURE GRAN ABSOLUTE AUTO 0.34 K/mm3 (0.00-0.10); IMMATURE GRAN PERCENT AUTO 1 % (0-1); LYMPHOCYTES ABSOLUTE AUTO 1.66 K/mm3 (0.84-5.20); LYMPHOCYTES PERCENT AUTO 5 % (21-46); MONOCYTES ABSOLUTE AUTO 2.03 K/mm3 (0.16-1.47); MONOCYTES PERCENT AUTO 7 % (4-13); Mean Corpuscular HGB 23.6 pg (26.0-34.0); Mean Corpuscular HGB Conc 27.4 g/dL (31.5-36.5); Mean Corpuscular Volume 86 fL (80-100); Mean Platelet Volume 11.8 fL (9.1-12.4); NEUTROPHILS ABSOLUTE AUTO 26.94 K/mm3 (1.96-9.15); NEUTROPHILS PERCENT AUTO 87 % (41-73); NRBC ABSOLUTE 0.04 K/mm3 (0.00-0.02); NRBC Auto 0.1 /100 WBC (0.0-0.2); Platelet Count 322 K/mm3 (150-400); RDW Coefficient Variation 20.6 % (11.7-14.2); RDW Standard Deviation 62.4 fL (35.1-46.3); Red Blood Cell Count 4.41 M/mm3 (3.80-5.20); White Blood Cell Count 31.12 K/mm3 (4.00-11.30)
[2019-12-10 12:30] LABS: Albumin/Globulin Ratio 0.4 (0.8-1.8); Bilirubin, Total 0.6 mg/dL (0.1-1.0); Bun/Creatinine Ratio 43.5 (12.0-20.0); Calcium, Blood 7.8 mg/dL (8.5-10.1); Creatinine, Blood 2.09 mg/dL (0.40-1.00); Globulin, Blood 5.1 g/dL (2.2-4.0); Potassium, Blood 5.4 mmol/L (3.5-5.5); Total Protein, Blood 7.1 g/dL (6.4-8.2)
[2019-12-10] MEDS ORDERED: ROPINIROLE HCL0.5 MG PO (15:21)
[2019-12-10] MEDS ORDERED: METO5 PO (15:23)
[2019-12-10] MEDS ORDERED: Klor-Con 1010 MEQ PO (15:24)
[2019-12-10 16:53] LABS: Adenovirus F 40/41 Not Detected (NOT DETECT); Astrovirus Not Detected (NOT DETECT); Campylobacter Sp Not Detected (NOT DETECT); Cryptosporidium Not Detected (NOT DETECT); Cyclospora Cayetanensis Not Detected (NOT DETECT); E. Coli O157 Not Detected (NOT DETECT); Entamoeba Histolytica Not Detected (NOT DETECT); Enteroaggregative E. coli-EAEC Not Detected (NOT DETECT); Enteropathogenic E. coli-EPEC Not Detected (NOT DETECT); Enterotoxigenic E. coli-ETEC Not Detected (NOT DETECT); Giardia Lamblia Not Detected (NOT DETECT); Norovirus GI/GII Not Detected (NOT DETECT); Plesiomonas Shigelloides Not Detected (NOT DETECT); Rotavirus A Not Detected (NOT DETECT); Salmonella Sp Not Detected (NOT DETECT); Sapovirus Not Detected (NOT DETECT); Shiga Toxin-prod E. coli-STEC Not Detected (NOT DETECT); Shigella/Enteroin E. coli-EIEC Not Detected (NOT DETECT); Vibrio Cholerae Not Detected (NOT DETECT); Vibrio Sp Not Detected (NOT DETECT); Yersinia Enterocolitica Not Detected (NOT DETECT)
[2019-12-11 06:04] LABS: BASOPHILS ABSOLUTE AUTO 0.12 K/mm3 (0.00-0.23); BASOPHILS PERCENT AUTO 1 % (0-2); EOSINOPHILS ABSOLUTE AUTO 0.11 K/mm3 (0.00-0.68); EOSINOPHILS PERCENT AUTO 1 % (0-6); Hematocrit 35.8 % (33.0-51.0); Hemoglobin 9.8 g/dL (11.5-16.0); IMMATURE GRAN ABSOLUTE AUTO 0.25 K/mm3 (0.00-0.10); IMMATURE GRAN PERCENT AUTO 1 % (0-1); LYMPHOCYTES ABSOLUTE AUTO 1.43 K/mm3 (0.84-5.20); LYMPHOCYTES PERCENT AUTO 6 % (21-46); MONOCYTES ABSOLUTE AUTO 1.88 K/mm3 (0.16-1.47); MONOCYTES PERCENT AUTO 8 % (4-13); Mean Corpuscular HGB 23.1 pg (26.0-34.0); Mean Corpuscular HGB Conc 27.4 g/dL (31.5-36.5); Mean Corpuscular Volume 84 fL (80-100); Mean Platelet Volume 11.4 fL (9.1-12.4); NEUTROPHILS ABSOLUTE AUTO 20.44 K/mm3 (1.96-9.15); NEUTROPHILS PERCENT AUTO 84 % (41-73); Platelet Count 312 K/mm3 (150-400); RDW Coefficient Variation 20.2 % (11.7-14.2); RDW Standard Deviation 61.3 fL (35.1-46.3); Red Blood Cell Count 4.25 M/mm3 (3.80-5.20); White Blood Cell Count 24.23 K/mm3 (4.00-11.30)
--- NOTE | 2019-12-11 06:29 | NUR ---
SHIFT SUMMARY PT WAS A NEW ADMIT DURING THE NIGHT, ARRIVING ON THE FLOOR AT 1950. SHE WAS ADMITTED FOR COLITIS AND A FALL AT HOME. PER THE PT, SHE HAD STARTED HAVING N/V/D THE NIGHT BEFORE SHE WAS ADMITTED, AND THE NEXT MORNING FELT "WEAK" AND FELL WHILE TRYING TO REACH THE BEDSIDE COMMODE. PT IS A&O X 3, AND WAS ON BEDREST THROUGH THE NIGHT. PT DID REPORT LLQ ABD PAIN, AND WAS MEDICATED ONCE WITH PRN NORCO. NO COMPLAINTS OF ACUTE NAUSEA OR SOB. SHE IS ON 3L OF O2 VIA NC CONTINUOUS AT HOME, AND CONTINUED AT THE SAME RATE THROUGH THE NIGHT. PT'S VITAL SIGNS WERE STABLE ON ADMISSION, BUT DURING AM VITALS PT'S HEART RATE WAS NOTABLY INCREASED FROM THE 80S TO THE 140S ON THE MONITOR. BLOOD PRESSURE AND ALL OTHER VITALS STABLE. THE HOSPITALIST DR PERSON WAS CALLED, WHO ORDERED A TELE FOR THE PT. TELE MONITOR SHOWED AFIB IN THE 160-170S. DUE TO THE HIGH HEART RATE, DR PERSON ORDERED A TRANSFER TO PCU, A BOLUS OF 10MG CARDIZEM, AND A CARDIZEM DRIP. PT WAS TRANSFERED TO ICU 10 AT PCU STATUS. REPORT GIVEN TO ICU NURSE. PT TRANSFERED AT 0615.
--- NOTE | 2019-12-11 06:47 | NUR ---
PT TO ICU 10 VIA [facility] WITH MEDICAL FLOOR RN @ 0615, PT DROWSY BUT ORIENTED TO SELF, EVENT, PLACE AND FOLLOWING DIRECTIONS. MONITOR SHOWS AFIB WITH HR 130-160'S, PT HYPOTENSIVE. CARDIZEM GTT INITIATED @ 5MG, MAINTENANCE FLUIDS STARTED. PT STS SHE FEELS TIRED AND LIGHTHEADED. PT WITH A TEMP OF 100.5, TYLENOL ADMINISTERED. PT OXYGEN DEPENDENT AT HOME ON 3L PER NC, PT PLACED ON 3L PER NC TO MAINTAIN O2 SATURAIONS>90%.
[2019-12-11 06:52] LABS: Magnesium, Blood 1.7 mg/dL (1.6-2.4)
[2019-12-11 06:58] LABS: Anion Gap 6 mmol/L (6-16); Blood Urea Nitrogen 94 mg/dL (8-24); Bun/Creatinine Ratio 46.8 (12.0-20.0); CO2, Blood 32 mmol/L (21-32); Calcium, Blood 7.8 mg/dL (8.5-10.1); Chloride, Blood 101 mmol/L (98-108); Creatinine, Blood 2.01 mg/dL (0.40-1.00); Glomerular Filtration Rate 26 (60-); Glucose, Blood 175 mg/dL (70-99); Potassium, Blood 3.8 mmol/L (3.5-5.5); Sodium, Blood 139 mmol/L (136-145); Vancomycin, Random 19.9 ug/mL
--- NOTE | 2019-12-11 07:55 | NUR ---
CARE ASSUMED REPORT RECEIVED, CARE ASSUMED AT 0700 FROM YUSEF BENOIT. PT ALERT, ORIENTED. HR 140'S-150'S, DILTIAZEM TITRATED UP TO 10 MG/HR. NORMAL SALINE AT 100 ML/HR PER ORDERS. PT DENIES CHEST PAIN. REPORTS FEELING DIZZY. BP LABILE, SEE FOWSHEET. RR EVEN, MID 20'S. DIFFICULT TO OBTAIN 02 SATURATION PERIPHERALLY. WHEN PROVIDED WITH WARM COMPRESS TO RIGHT HAND, 02 SATURATIONS CONSISTENTLY HIGH 90'S ON 3 LPM NASAL CANNULA. PT REPORTING PAIN IN ABDOMEN AND MILD NAUSEA. HOLDING PAIN MEDICATION UNTIL BP MORE STABLIZED ON DILTIAZEM DRIP. DISCUSSED THIS PLAN WITH PATIENT AND SHE IS AGREEABLE TO PLAN. TEMP IMPROVED AFTER TYLENOL ADMINISTRATION THIS MORNING. PT DENIES NEEDS, AGREEABLE TO CALL FOR NEEDS AND TO USE BEDPAN.
--- NOTE | 2019-12-11 08:52 | NUR ---
DR. SHELTON COMMUNICATION PT'S HR CONTINUES TO BE 140'S-160'S. HYPOTENSIVE. SEE FLOWSHEET. SPOKE WITH DR. SHELTON WHO STATES SHE WILL PUT IN ORDERS. DILTIAZEM TITRATED DOWN TO 5 MG/HR DUE TO PERSISTENT HYPOTENSION. PT REPORTS CONTINUED DIZZINESS. REPORTS LETHARGY. MILD SOB.
--- NOTE | 2019-12-11 09:13 | NUR ---
DR. SHELTON COMMUNICATION CLARIFIED WITH DR. SHELTON REGARDING METOPROLOL IV PT'S BLOOD PRESSURE IS PERSISTENTLY LOW. DILTIAZEM DRIP OFF. DR. SHETLON SAID TO SEE IF BLOOD PRESSURE IMPROVES NOW THAT DILTIAZEM IS OFF AND GIVE METOPROLOL. DISCUSSED POSSIBLE AMIODERONE OR CARDIOLOGY CONSULT, HOLD OFF AT THIS TIME.
--- NOTE | 2019-12-11 10:00 | NUR ---
UPDATE SRINATH WALDEN RN TO BEDSIDE FOR MEDICATION ADMINISTRATION. IV METOPROLOL GIVEN. NORVASC HELD FOR BORDERLINE BLOOD PRESSURE AND HOLD ON ORAL METOPROLOL FOR REASSESSMENT OF BLOOD PRESSURE. UPDATE PROVIDED TO DR. SHELTON FROM SRINATH WALDEN RN.
--- NOTE | 2019-12-11 11:46 | NUR ---
DR. SHELTON COMMUNICATION SPOKE WITH DR. RUIZ REGARDING PT'S HYPOTENSION AND TACHYCARDIA. ORDER FOR 500 ML BOLUS, RECHECK BLOOD PRESSURE AND GIVE MOTOPROLOL IF IMPROVED.
--- NOTE | 2019-12-11 12:31 | NUR ---
DR. PORTILLO COMMUNICATION SPOKE WITH DR. SHELTON HYPOTENSION PERSISTS. HR CONTINUES TO BE 110'S-150'S. DR. SHELTON SAYS SHE WILL PUT IN ORDERS FOR DIGOXIN.
--- NOTE | 2019-12-11 18:00 | NUR ---
DR. CAT SHELTON TO BEDSIDE REQUESTING THAT IV METOPROLOL BE GIVEN NOW AND Q6H TO MANAGE HR. IF PT NEEDS FURTHER COVERAGE FOR HEART RATE, GIVE DIGOXIN. SEE ORDERS. METOPROLOL GIVEN.
--- NOTE | 2019-12-11 19:15 | NUR ---
ASSUMED CARE NOTE: ASSUMED CARE OF PT AT 1900, RECEVIED REPORT FROM ALBERTO HOLBROOK. PT IS A/OX3, AND IS ABLE TO FOLLOW DIRECTIONS. PT IS CURRENTLY IN AFIB WITH HR BETWEEN 100-120 BPM, PT DENIES ANY CP OR SOB AT THIS TIME. PT IS ON 4L OF O2 VIA NC STATING AT 94%. ACTIVE BOWEL TONES HEARD IN ALL FOUR QUADRANTS. PT C/O BLADDER DISTENTION. PT IS UNAWARE OF WHEN LAST URINE OUTPUT WAS. WILL BLADDER SCAN PT. SKIN CARE PROVIDED. WILL CONTINUE TO MONITOR PT T/O SHIFT.
--- NOTE | 2019-12-11 19:27 | NUR ---
SUMMARY SEE PREVIOUS NOTES FOR PLANS REGARDING PT'S AFIB. OTHERWISE, VITALS STABLE. AFEBRILE. 02 SAT 90'S ON 3 LPM. PHOTOS PLACED OF SKIN AND PLACED ON CHART. PT HAS BEEN ALERT AND ORIENTED THROUGHOUT SHIFT BUT EXTREMELY DROWSY. INCONTINENT OF BOWEL AND STOOL MAJORITY OF DAY. THIS AFTERNOON, PT REQUESTING BEDPAN AND DOING WELL. AGREEABLE TO TURNS. AT MOST RECENT USE OF BEDPAN, PT REPORTS FEELING LIKE SHE WANTS TO GET UP TO BEDSIDE COMMODE TO TRY AND URINATE BUT PT PROFOUNDLY WEAK. PT HAS MIX OF STOOL AND URINE IN BEDPAN. REPORTS FEELING LIKE SHE STILL NEEDS TO URINATE. BEDSIDE REPORT YUSEF ESPINOZA TO ASSUME CARE.
--- NOTE | 2019-12-11 20:50 | NUR ---
UPDATE: PT IS C/O FULL BLADDER. PT IS STATING THAT SHE NOT ABLE TO VOID. BLADDER SCAN WAS DONE WHICH SHOWED A VALUE ABOVE 999ML OF URINE IN THE BLADDER. HOSPITALIST WAS CALLED, ORDERS TO PLACE A 16F TRIVEDI WERE PLACED.
[2019-12-11 21:29] LABS: Source, Urine Catheter
[2019-12-11 21:34] LABS: Appearance, Urine Clear (Clear); Blood, Urine 1+ (Neg); Color, Urine Yellow (P-Yellow); Glucose Qualitative, Urine Neg (Neg); Ketones, Urine 1+ (Neg); Leukocyte Esterase, Urine 2+ (Neg); Nitrite, Urine Neg (Neg); Protein, Urine 1+ (Neg); Specific Gravity, Urine 1.015 (1.003-1.022); Urobilinogen, Urine 1+ (Normal)
[2019-12-11 21:39] LABS: Bilirubin, Urine 1+ (Neg)
[2019-12-11 21:40] LABS: Red Blood Cells, Urine 0-2 /hpf (0-2)
[2019-12-11 21:41] LABS: Amorphous Light (0-Heavy); Bacteria Mod /hpf; Squamous Epithelial Cells Rare /hpf (Few)
[2019-12-12 03:19] LABS: Hematocrit 31.8 % (33.0-51.0); Hemoglobin 8.7 g/dL (11.5-16.0); Mean Corpuscular HGB 23.1 pg (26.0-34.0); Mean Corpuscular HGB Conc 27.4 g/dL (31.5-36.5); Mean Corpuscular Volume 85 fL (80-100); Mean Platelet Volume 10.8 fL (9.1-12.4); Platelet Count 308 K/mm3 (150-400); RDW Coefficient Variation 19.5 % (11.7-14.2); RDW Standard Deviation 59.9 fL (35.1-46.3); Red Blood Cell Count 3.76 M/mm3 (3.80-5.20); White Blood Cell Count 20.01 K/mm3 (4.00-11.30)
[2019-12-12 03:41] LABS: Albumin, Blood 1.4 g/dL (3.4-5.0); Anion Gap 5 mmol/L (6-16); Blood Urea Nitrogen 83 mg/dL (8-24); Bun/Creatinine Ratio 57.6 (12.0-20.0); CO2, Blood 29 mmol/L (21-32); Calcium, Blood 7.4 mg/dL (8.5-10.1); Chloride, Blood 106 mmol/L (98-108); Creatinine, Blood 1.44 mg/dL (0.40-1.00); Glomerular Filtration Rate 38 (60-); Glucose, Blood 169 mg/dL (70-99); Phosphorus, Blood 3.9 mg/dL (2.5-4.9); Sodium, Blood 140 mmol/L (136-145)
[2019-12-12 05:34] LABS: BAND PERCENT MAN 14 % (0-8); BASOPHILS PERCENT MAN 0 % (0-2); EOSINOPHILS PERCENT MAN 2 % (0-6); LYMPHOCYTES PERCENT MAN 8 % (21-46); MONOCYTES PERCENT MAN 6 % (4-13); SEG NEUTROPHILS PERCENT MAN 70 % (41-73); TOTAL CELLS COUNTED 100
--- NOTE | 2019-12-12 05:57 | NUR ---
SHIFT SUMMARY: PT REMAINS ALERT AND ORIENTEDX3. PT IS ON 2L OF O2 VIA NC, SPO2 @ 95%. PT HAS BEEN AFIB WITH HR BETWEEN 100-120BPM FOR THE MAJORITY OF THE SHIFT. METROPOLOL IV WAS GIVEN ONCE BP WAS STABLE. PT HAS BEEN HAVING LOOSE BM, SKIN CARE HAS BEEN PROVIDED WITH EACH CHANGE. TRIVEDI IS DRAINING DARK TEA COLOR WITH SEDIMENT. PT HAS BEEN ABLE TO REPOSITION SELF IN BED T/O NIGHT. BED AT LOWEST LEVEL, CALL LIGHT WITHIN REACH.
--- NOTE | 2019-12-12 13:20 | NUR ---
CARE ASSUMED 0730 ASSESSMENT COMPLETED, PT A&OX4, PLEASANT AND COOPERATIVE. REPORTS ABD TENDERNESS WITH PALPATION, INCONTINENT OF LIQUID STOOL, LINENS AND ATTENDS CHANGED. LS WITH CRACKLES, PT STATES THESE ARE CHRONIC, DENIES SOB AT THIS TIME. SPO2 > 90% ON 2L/NC. HR 90-110'S AFIB, PT DENIES CHEST DISCOMFORT OR PALPITATIONS, WILL MEDICATE PER MAR. SKIN FRAGILE, CALMOSEPTINE TO BOTTOM. CATH CARE COMPLETED, MEDS ADMINISTERED PER ORDERS.
--- NOTE | 2019-12-12 13:22 | NUR ---
UPDATE PT UP WITH P/T TO C, INCONTINENT A SECOND TIME OF BROWN LIQUID STOOL, RECTAL TUBE PLACED. DR. DUKES IN TO SEE PATIENT, NEW ORDERS RECEIVED. PT PLEASANT AND COOPERATIVE, GOOD EFFORT WITH P/T, GAIT STEADY WITH WALKER AND 1 PERSON ASSIST. VS UNCHANGED, PT DENIES C/O, HAS BEEN NAPPING ON AND OFF. C/O NAUSEA AT LUNCH TIME, ZOFRAN ADMINISTERED, PT TOLERATING PO LIQUIDS WELL.
--- NOTE | 2019-12-12 15:47 | NUR ---
Per admit trigger, I met with Carie to offer prayer and encouragement. She has a lars martínez that sustains her. she admits she is "tired of being sick" but beleives she will recover. She has strong family support and love. Carie responded well to assurance of excelent care, gentle spiritual direction, and prayer. I will remain available.
--- NOTE | 2019-12-12 18:01 | NUR ---
RECIEVED REPORT FROM BRIAN IN STORE [facility]ANKER, AT 1751. PATIENT WILL BE TRANSFERED TO ROOM 363.
--- NOTE | 2019-12-12 18:15 | NUR ---
1800 TRANSFER NOTE SMALL AMOUNT OF DRAINAGE FROM RECTAL TUBE SINCE INSERTION, 5ML WATER ADDED TO BALLOON FOR LEAKING. PT MEDICATED X1 TODAY FOR ABD PAIN, GOOD RESULTS FROM PERCOCET. BP STABLE THIS SHIFT, HR 90'S-110 AFIB, PT DENIED CHEST DISCOMFORT ALL DAY, TOLERATED PO METOPROLOL WELL. CRACKLES REMAIN PRESENT, PT STATES THIS IS NORMAL. O2 3L/NC, THIS IS PATIENTS HOME DOSE, SPO2 MID 90'S. ABX ADMINISTERED PER ORDERS, LR INFUSING. REPORT TO YUSEF BRIZUELA. PT TO MEDICAL FLOOR.
[2019-12-12] MEDS ORDERED: NYSTRIT TOP (21:02)
[2019-12-12] MEDS ORDERED: PROM25 PO (21:08)
[2019-12-13 04:58] LABS: BASOPHILS ABSOLUTE AUTO 0.07 K/mm3 (0.00-0.23); BASOPHILS PERCENT AUTO 1 % (0-2); EOSINOPHILS ABSOLUTE AUTO 0.43 K/mm3 (0.00-0.68); EOSINOPHILS PERCENT AUTO 3 % (0-6); Hematocrit 33.4 % (33.0-51.0); Hemoglobin 9.1 g/dL (11.5-16.0); IMMATURE GRAN PERCENT AUTO 1 % (0-1); LYMPHOCYTES PERCENT AUTO 7 % (21-46); MONOCYTES ABSOLUTE AUTO 1.08 K/mm3 (0.16-1.47); MONOCYTES PERCENT AUTO 8 % (4-13); Mean Corpuscular HGB 23.4 pg (26.0-34.0); Mean Corpuscular HGB Conc 27.2 g/dL (31.5-36.5); Mean Corpuscular Volume 86 fL (80-100); Mean Platelet Volume 11.1 fL (9.1-12.4); NEUTROPHILS ABSOLUTE AUTO 11.62 K/mm3 (1.96-9.15); NEUTROPHILS PERCENT AUTO 81 % (41-73); Platelet Count 289 K/mm3 (150-400); RDW Coefficient Variation 19.6 % (11.7-14.2); RDW Standard Deviation 60.8 fL (35.1-46.3); Red Blood Cell Count 3.89 M/mm3 (3.80-5.20)
[2019-12-13 05:29] LABS: Bun/Creatinine Ratio 54.9 (12.0-20.0); Calcium, Blood 8.1 mg/dL (8.5-10.1); Creatinine, Blood 1.22 mg/dL (0.40-1.00); Phosphorus, Blood 3.2 mg/dL (2.5-4.9); Potassium, Blood 3.4 mmol/L (3.5-5.5)
--- NOTE | 2019-12-13 07:18 | NUR ---
SHIFT SUMMARY PATIENT ALERT AND ORIENTED. WAS ABLE TO SLEEP AND HAD MINIMAL NEEDS OVERNIGHT. IV PATENT AND FLUSHED. TRIVEDI IN PLACE AND FLOWING TO GRAVITY. RECTAL TUBE IN PLACE. BED IN LOWEST PPOSITION WITH WHEELS LOCKED. CALL LIGHT WITHIN REACH. REPORT GIVEN TO ONCOMING RN.
--- NOTE | 2019-12-13 17:17 | NUR ---
Patient permission given to NORMA Vaughan, to assist with care on 12/14/2019.
--- NOTE | 2019-12-13 18:37 | NUR ---
PT AOX4 AND COOPERATIVE OF CARE. PT SLEEP VERY WELL IN THE AM AND WOKE HAPPY AND EASY TO WORK WITH. PT WAS BEDREST TODAY , WAS ABLE TO STAND WITH PHYSICAL THERAPY. PT WAS TREATED FOR L HIP PAIN PER EMAR X1. CALLS APPROPRIATELY. WILL CONTINUE TO MONITOR.
--- NOTE | 2019-12-14 04:49 | NUR ---
12/14/19 0445 C/O slight sob and requesting breathing inhaler. RN paged resp. care for tx. Heart rate high due to pain and slight SOB. RN will monitor vitals later.
[2019-12-14 05:19] LABS: Hematocrit 35.5 % (33.0-51.0); Hemoglobin 9.5 g/dL (11.5-16.0); Mean Corpuscular HGB 23.2 pg (26.0-34.0); Mean Corpuscular HGB Conc 26.8 g/dL (31.5-36.5); Mean Corpuscular Volume 87 fL (80-100); Mean Platelet Volume 12.1 fL (9.1-12.4); Platelet Count 351 K/mm3 (150-400); RDW Coefficient Variation 19.4 % (11.7-14.2); RDW Standard Deviation 60.7 fL (35.1-46.3); White Blood Cell Count 12.41 K/mm3 (4.00-11.30)
[2019-12-14 05:37] LABS: Bun/Creatinine Ratio 39.3 (12.0-20.0); Calcium, Blood 8.5 mg/dL (8.5-10.1); Creatinine, Blood 1.12 mg/dL (0.40-1.00); Potassium, Blood 3.4 mmol/L (3.5-5.5)
--- NOTE | 2019-12-14 17:40 | NUR ---
PT HAS BEEN AOX4 AND COOPERATIVE OF CARE. PT HAS NOT FELT GOOD SHE SHOULD TODAY. PT STATED SHE WAS FEELING NAUSEATED AROUND LUNCH TIME AND WAS TREATED PER EMAR. PT WAS SAT UP IN CHAIR FOR SOMETIME. AFTER SHE RETURNED TO BED PT HAS BEEN TAKING A LONG NAP AND HAS BEEN VERY TIRED THIS AFTERNOON. WILL CONTINUE TO MONITOR.
--- NOTE | 2019-12-14 18:47 | NUR ---
PT HAD ALMOST NO OUTPUT WITH RECTAL TUBE. REMOVED RECTAL TUBE AND TRIVEDI PER DR VARMA REQUEST. PT TOLERATED WELL.
[2019-12-15 04:37] LABS: BASOPHILS PERCENT AUTO 1 % (0-2); EOSINOPHILS ABSOLUTE AUTO 0.53 K/mm3 (0.00-0.68); EOSINOPHILS PERCENT AUTO 4 % (0-6); Hematocrit 36.1 % (33.0-51.0); Hemoglobin 9.6 g/dL (11.5-16.0); IMMATURE GRAN ABSOLUTE AUTO 0.71 K/mm3 (0.00-0.10); IMMATURE GRAN PERCENT AUTO 5 % (0-1); LYMPHOCYTES PERCENT AUTO 15 % (21-46); MONOCYTES ABSOLUTE AUTO 1.03 K/mm3 (0.16-1.47); MONOCYTES PERCENT AUTO 8 % (4-13); Mean Corpuscular HGB 23.1 pg (26.0-34.0); Mean Corpuscular HGB Conc 26.6 g/dL (31.5-36.5); Mean Corpuscular Volume 87 fL (80-100); Mean Platelet Volume 10.9 fL (9.1-12.4); NEUTROPHILS ABSOLUTE AUTO 8.76 K/mm3 (1.96-9.15); NEUTROPHILS PERCENT AUTO 67 % (41-73); Platelet Count 384 K/mm3 (150-400); RDW Coefficient Variation 19.5 % (11.7-14.2); RDW Standard Deviation 61.8 fL (35.1-46.3); Red Blood Cell Count 4.15 M/mm3 (3.80-5.20); White Blood Cell Count 13.03 K/mm3 (4.00-11.30)
[2019-12-15 04:53] LABS: Calcium, Blood 8.3 mg/dL (8.5-10.1); Creatinine, Blood 1.13 mg/dL (0.40-1.00); Potassium, Blood 3.5 mmol/L (3.5-5.5)
--- NOTE | 2019-12-15 19:33 | NUR ---
SUMMARY PT IS A/O X4, SOMEWHAT PALE, UP w 1 ASSIST, WEAK GAIT. PLEASANT AFFECT. SHE HAS BEEN UP IN CHAIR FOR MOST OF DAY, PARTICIPATED w LUIS. TELE REPORT HR CONTINUES AFIB T/O DAY, RATE TACHY 120-130'S. AFTER DISCUSSION w GAVE METOPROLOL 5MG IV X1 TODAY. DR ADJUST/INCREASE ORAL DOSE. INTERLOCKING MACHINE OPERATOR PROVIDE COMPLETE BEDBATH TODAY. BARRIER OINT APPLIED TO DRY SKIN BLE. DRU/BUTTOCKS REDNESS NOTED, DR ORDER NYSTATIN CREAM. +BM TODAY, STOOL SOFT/LOOSE, ORANGE COLORED, MUCOUSY. SHE CONTINUES ON O2 @ 3L, STATE @ HOME USES 2-3L, LS w CRACKLES THIS AM. ANTIBX CHANGED TO ORAL, DR SUGGESTED D/C TO SNF THIS AM HOWEVER PT DECLINED SO PLAN FOR PT TO RETURN HOME W HOMEHEALTH WHEN APPROP.
--- NOTE | 2019-12-15 21:16 | NUR ---
Call from tele school bus monitor regarding heart rate increasing to 140's A fib. Patient nauseated at time.
[2019-12-16 04:44] LABS: Hematocrit 33.7 % (33.0-51.0); Hemoglobin 9.1 g/dL (11.5-16.0); Mean Corpuscular Volume 85 fL (80-100); Mean Platelet Volume 11.1 fL (9.1-12.4); NRBC ABSOLUTE 0.06 K/mm3 (0.00-0.02); NRBC Auto 0.4 /100 WBC (0.0-0.2); Platelet Count 442 K/mm3 (150-400); RDW Coefficient Variation 19.2 % (11.7-14.2); Red Blood Cell Count 3.96 M/mm3 (3.80-5.20); White Blood Cell Count 14.65 K/mm3 (4.00-11.30)
[2019-12-16 05:05] LABS: Bun/Creatinine Ratio 25.3 (12.0-20.0); Calcium, Blood 8.1 mg/dL (8.5-10.1); Creatinine, Blood 1.5 mg/dL (0.40-1.00); Potassium, Blood 3.6 mmol/L (3.5-5.5)
[2019-12-16 05:43] LABS: BASOPHILS ABSOLUTE MAN 0.14 K/mm3 (0.00-0.23); BASOPHILS PERCENT MAN 1 % (0-2); EOSINOPHILS ABSOLUTE MAN 0.58 K/mm3 (0.00-0.68); EOSINOPHILS PERCENT MAN 4 % (0-6); LYMPHOCYTES ABSOLUTE MAN 2.19 K/mm3 (0.84-5.20); LYMPHOCYTES PERCENT MAN 15 % (21-46); METAMYELOCYTE ABSOLUTE MAN 0.14 K/mm3 (0.00-0.00); METAMYELOCYTE PERCENT MAN 1 % (0-0); MONOCYTES ABSOLUTE MAN 0.87 K/mm3 (0.16-1.47); MONOCYTES PERCENT MAN 6 % (4-13); MYELOCYTE ABSOLUTE MAN 0.43 K/mm3 (0.00-0.00); MYELOCYTE PERCENT MAN 3 % (0-0); NEUTROPHILS ABSOLUTE MAN 10.25 K/mm3 (1.96-9.15); SEG NEUTROPHILS PERCENT MAN 70 % (41-73); TOTAL CELLS COUNTED 100
--- NOTE | 2019-12-16 05:54 | NUR ---
SPECIAL FORCES ENGINEER SERGEANT SUMMARY patient had much better rest after rate decreased back into 100-110's, and sciatic/pelvic pain resolved after late night dose percocet. Son in to visit late in evening which seemed to bring patient's spirits up. Nystatin applied to abhijeet area rash after incontinence. silicone lotion applied to psoriasis on shins. No mucousy stools overnight
--- NOTE | 2019-12-16 16:34 | NUR ---
SUMMARY PT UP IN CHAIR FOR BF, STAYED UP TIL 1630 THIS AFTERNOON. SHE PARTICIPATED w PT/OT TODAY. 1 ASSIST w FWW. SHE IS A/O X4, PLEASANT AFFECT. STATE CONTINUING WEAKNESS/FATIGUE. STATE CHR BACK/SCIATIC PAIN, HAVE GIVEN PERCOCET X1 TODAY FOR RELIEF. HR CONTINUES AFIB/TELE, RATE FROM 110-130'S, HAVE GIVEN PRN IV METOPROLOL X1 TODAY, BP LOW HOWEVER STABLE. DX COLITIS, SHE STATE DIARRHEA HAS IMPROVED, 1 BM SO FAR TODAY. PARAOPTOMETRIC STATE PT HAS REFUSED SNF, WILL D/C HOME WHEN FEELS APPROP.
--- NOTE | 2019-12-16 19:13 | NUR ---
DR RIVERA PLACE LATE ORDER FOR IV DIGOXIN. IV SITE INITIALLY PATENT HOWEVER INFILTRATE DTOWARDS END OF INFUSION. PHARMACY NOTIFIED, STATE NOT NECROTIC, ELEVATE & ICE SITE. SOLE CUTTER NALLELY TO START PERIPHERAL SITE, WILL PLACE POWERGLIDE IV.
--- NOTE | 2019-12-17 04:19 | NUR ---
SHIFT SUMMARY PATIENT HAD NO ACUTE CHANGES OBSERVED. AXOX 4 AND ONE ASSIST W/FWW TO BSC. END WORKER PLACED NEW PIV AFTER LAST ONE INFILTRATED AT SHIFT CHANGE. SCHEDULE IV DIGOXIN PIGGYBACK GIVEN PER EMAR WITH TELEMETRY MONITORING EDUCATION MANAGER REPORTED AFIB 112 AT START OF SHIFT AND NOW AFIB 91. CBG 165. DENIES PAIN, SOB, AND N/V. ON 3L O2 NC. CALL LIGHT IN REACH. BED IN LOWEST POSITION. WILL CONTINUE TO MONITOR UNTIL DAY SHIFT NURSE ASSUMES CARE.
[2019-12-17 04:52] LABS: Hematocrit 34.3 % (33.0-51.0); Hemoglobin 9.4 g/dL (11.5-16.0); Mean Corpuscular HGB 23.4 pg (26.0-34.0); Mean Corpuscular HGB Conc 27.4 g/dL (31.5-36.5); Mean Corpuscular Volume 85 fL (80-100); Mean Platelet Volume 10.9 fL (9.1-12.4); NRBC ABSOLUTE 0.15 K/mm3 (0.00-0.02); NRBC Auto 1.2 /100 WBC (0.0-0.2); Platelet Count 492 K/mm3 (150-400); RDW Coefficient Variation 19.3 % (11.7-14.2); RDW Standard Deviation 60.3 fL (35.1-46.3); Red Blood Cell Count 4.02 M/mm3 (3.80-5.20); White Blood Cell Count 12.91 K/mm3 (4.00-11.30)
[2019-12-17 05:28] LABS: Albumin, Blood 1.7 g/dL (3.4-5.0); Anion Gap 6 mmol/L (6-16); Blood Urea Nitrogen 40 mg/dL (8-24); Bun/Creatinine Ratio 25.2 (12.0-20.0); CO2, Blood 27 mmol/L (21-32); Calcium, Blood 8.3 mg/dL (8.5-10.1); Chloride, Blood 107 mmol/L (98-108); Creatinine, Blood 1.59 mg/dL (0.40-1.00); Digoxin (Lanoxin) 2.32 ug/mL (0.80-2.00); Glomerular Filtration Rate 34 (60-); Glucose, Blood 160 mg/dL (70-99); Phosphorus, Blood 4.1 mg/dL (2.5-4.9); Potassium, Blood 3.8 mmol/L (3.5-5.5); Sodium, Blood 140 mmol/L (136-145)
--- NOTE | 2019-12-17 17:57 | NUR ---
SHIFT SUMMARY. A&OX3, 1 ASSIST TO BSC, PT IS AWARE OF LIMITATIONS AND USES CALL LIGHT. PT REPORTS CHRONIC BACK PAIN THIS AFTERNOON, PAIN MANAGED WITH CURRENT ORDERS. PT REPORTED H/A, APAP GIVEN WITH GOOD RELIEF. NO N/V, SOB. NO NEW CHANGES OR CONCERNS.
--- NOTE | 2019-12-18 03:40 | NUR ---
SHIFT SUMMARY PATIENT HAD NO ACUTE CHANGES OBSERVED. FAMILY PRESENT IN ROOM AT SHIFT CHANGE AND STAYED FOR A FEW HOURS. AXOX 3 AND ONE ASSIST TO BSC. CBG 182. PIV REMAINS INTACT. MARKETING COORDINATOR REPORTS AFIB LOW 80'S. ON 3L O2 NC. REPORTED BACK PAIN X ONE AND PERCOCET GIVEN PER EMAR. DENIES SOB AND N/V. VSS/AFEBRILE. CALL LIGHT IN REACH. BED IN LOWEST POSITION. WILL CONTINUE TO MONITOR UNTIL DAY SHIFT NURSE ASSUMES CARE.
[2019-12-18 05:08] LABS: Albumin, Blood 1.6 g/dL (3.4-5.0); Anion Gap 4 mmol/L (6-16); Blood Urea Nitrogen 40 mg/dL (8-24); CO2, Blood 27 mmol/L (21-32); Chloride, Blood 108 mmol/L (98-108); Creatinine, Blood 1.48 mg/dL (0.40-1.00); Glomerular Filtration Rate 37 (60-); Glucose, Blood 179 mg/dL (70-99); Phosphorus, Blood 4.1 mg/dL (2.5-4.9); Potassium, Blood 4.6 mmol/L (3.5-5.5); Sodium, Blood 139 mmol/L (136-145)
[2019-12-18 05:15] LABS: Digoxin (Lanoxin) 1.83 ug/mL (0.80-2.00)
--- NOTE | 2019-12-18 18:28 | NUR ---
SHIFT SUMMARY. PT REPORTS FEELING OVERALL BETTER TODAY, STRENGTH APPEARS TO BE IMPROVED, PT WAS ABLE TO WALK AROUND BED TO CHAIR WITH FWW. PT DENIES SOB, N/V. CONTINUES WITH 3L O2 NC. PT C/O LOWER BACK PAIN ONCE THIS AFTERNOON, PAIN MANAGED WELL WITH ORDERS. NO NEW CHANGES OR CONCERNS. PT REPORTS THAT HER DAUGHTER LIVES WITH HER, SHE HAS CARE GIVERS DURING THE DAY, HAS RISER FOR TOILET, FWW, AND W/C.
--- NOTE | 2019-12-19 03:58 | NUR ---
SHIFT SUMMARY PATIENT HAD NO ACUTE CHANGES OBSERVED. REPORTED BACK/R SHOULDER PAIN X TWO AND PERCOCET AND TYLENOL GIVEN PER EMAR. HEATING PAD ALSO IN USE. ON 3L O2 NC. CBG 171. PIV REMAINS INTACT. DOBBY LOOM FIXER REPORTS AFIB 76. DENIES SOB AND N/V. VSS/AFEBRILE. CALL LIGHT IN REACH. BED IN LOWEST POSITION. WILL CONTINUE TO MONITOR UNTIL DAY SHIFT NURSE ASSUMES CARE.
[2019-12-19 05:21] LABS: Albumin, Blood 1.7 g/dL (3.4-5.0); Anion Gap 5 mmol/L (6-16); Blood Urea Nitrogen 37 mg/dL (8-24); Bun/Creatinine Ratio 27.6 (12.0-20.0); CO2, Blood 27 mmol/L (21-32); Chloride, Blood 108 mmol/L (98-108); Creatinine, Blood 1.34 mg/dL (0.40-1.00); Glomerular Filtration Rate 42 (60-); Glucose, Blood 157 mg/dL (70-99); Phosphorus, Blood 3.9 mg/dL (2.5-4.9); Potassium, Blood 4.2 mmol/L (3.5-5.5); Sodium, Blood 140 mmol/L (136-145)
[2019-12-19] MEDS ORDERED: LANOXIN125 MCG PO (12:20)
--- NOTE | 2019-12-19 16:25 | NUR ---
1414 PT DISCHARGED HOME WITH HH VIA PERSONAL VEHICLE WITH HOME O2 ACCOMPANIED AND DRIVEN BY DAUGHTER. PT ESCORTED TO FACILITY ENTRANCE VIA W/C BY FOOD SERVICES COORDINATOR. IV REMOVED. D/C PAPERWORK REVIEWED WITH PT AND COPY PROVIDED. NO NEW CHANGES OR CONCERNS.
== END 2019-12-19 14:14 | disposition home health service (06) | DRG 872 ==
LOC: ER 11:21 → MEDS 19:32 → ICUW 12-11 06:02 → MEDS 12-12 18:33 → ENPENDDIS 12-19 10:26 → MEDS 12-19 14:14
PROVIDERS: Emergency Medicine; Internal Medicine; Nurse Practitioner Acute Care; Physician Assistant; ADMIT Internal Medicine
DX: A41.9 Sepsis, unspecified organism (principal); E87.2 Acidosis; I48.20 Chronic atrial fibrillation, unspecified; N17.9 Acute kidney failure, unspecified; I50.32 Chronic diastolic (congestive) heart failure; E87.1 Hypo-osmolality and hyponatremia; K51.00 Ulcerative (chronic) pancolitis without complications; I13.0 Hypertensive heart and chronic kidney disease with heart failure and stage 1 through stage 4 chronic kidney disease, or unspecified chronic kidney disease; R65.20 Severe sepsis without septic shock; J44.9 Chronic obstructive pulmonary disease, unspecified; E87.6 Hypokalemia; I34.0 Nonrheumatic mitral (valve) insufficiency; D63.1 Anemia in chronic kidney disease; Z74.09 Other reduced mobility; E11.22 Type 2 diabetes mellitus with diabetic chronic kidney disease; N18.3 Chronic kidney disease, stage 3 (moderate); E86.0 Dehydration; E03.9 Hypothyroidism, unspecified; F32.9 Major depressive disorder, single episode, unspecified; F41.9 Anxiety disorder, unspecified; D50.9 Iron deficiency anemia, unspecified; M81.0 Age-related osteoporosis without current pathological fracture; J84.10 Pulmonary fibrosis, unspecified; W19.XXXA Unspecified fall, initial encounter; Y92.009 Unspecified place in unspecified non-institutional (private) residence as the place of occurrence of the external cause; K21.9 Gastro-esophageal reflux disease without esophagitis; G25.81 Restless legs syndrome; M10.9 Gout, unspecified; Z79.01 Long term (current) use of anticoagulants; Z79.4 Long term (current) use of insulin; Z87.891 Personal history of nicotine dependence
CPT/HCPCS: 0097U; 36415; 51702; 70450; 74176; 80048; 80053; 80069; 80162; 80202; 81001; 82947; 83605; 83690; 83735; 83880; 84100; 85025; 85027; 85651; 86140; 87040; 87086; 93005; 93010; 94640; 94760; 96361; 96365; 96366; 96375; 97110; 97116; 97162; 97166; 97530; 97535; 99285-25; A9270; A9270-GY; J0744; J1160; J2405; J3010; J3370; J3475; J7030; J7040; J7050; J7120

== ENCOUNTER 2020-01-12 15:05 | Observation (INO) | payer OTHER ==
[~2020-01-12] VITALS: Ht 157.5 cm; Wt 91.3 kg
[~2020-01-12 15:05] MED LIST changes: +Klor-Con 1010 MEQ PO; +LANOXIN125 MCG PO; +ROPINIROLE HCL0.5 MG PO; +[UNRECOGNIZED DRUG - CODE] PO
[2020-01-12 15:34] LABS: BASOPHILS ABSOLUTE AUTO 0.05 K/mm3 (0.00-0.23); BASOPHILS PERCENT AUTO 1 % (0-2); EOSINOPHILS ABSOLUTE AUTO 0.21 K/mm3 (0.00-0.68); EOSINOPHILS PERCENT AUTO 3 % (0-6); Hematocrit 32.9 % (33.0-51.0); Hemoglobin 8.8 g/dL (11.5-16.0); IMMATURE GRAN ABSOLUTE AUTO 0.06 K/mm3 (0.00-0.10); IMMATURE GRAN PERCENT AUTO 1 % (0-1); LYMPHOCYTES ABSOLUTE AUTO 1.66 K/mm3 (0.84-5.20); LYMPHOCYTES PERCENT AUTO 24 % (21-46); MONOCYTES ABSOLUTE AUTO 0.58 K/mm3 (0.16-1.47); MONOCYTES PERCENT AUTO 8 % (4-13); Mean Corpuscular HGB 22.9 pg (26.0-34.0); Mean Corpuscular HGB Conc 26.7 g/dL (31.5-36.5); Mean Corpuscular Volume 86 fL (80-100); Mean Platelet Volume 10.1 fL (9.1-12.4); NEUTROPHILS ABSOLUTE AUTO 4.34 K/mm3 (1.96-9.15); NEUTROPHILS PERCENT AUTO 63 % (41-73); NRBC ABSOLUTE 0.15 K/mm3 (0.00-0.02); NRBC Auto 2.2 /100 WBC (0.0-0.2); Platelet Count 395 K/mm3 (150-400); RDW Coefficient Variation 19.6 % (11.7-14.2); RDW Standard Deviation 60.1 fL (35.1-46.3); Red Blood Cell Count 3.84 M/mm3 (3.80-5.20)
[2020-01-12 15:52] LABS: International Normalized Ratio 1.3; Prothrombin Time Results 13.7 Sec (9.7-11.5)
[2020-01-12 15:59] LABS: Alanine Aminotransfer (ALT/SGP 18 U/L (12-78); Albumin, Blood 1.8 g/dL (3.4-5.0); Albumin/Globulin Ratio 0.3 (0.8-1.8); Alk Phos 192 U/L (50-136); Anion Gap 5 mmol/L (6-16); Aspartate Aminotrans (AST/SGOT 31 U/L (12-37); Bilirubin, Total 0.2 mg/dL (0.1-1.0); Blood Urea Nitrogen 73 mg/dL (8-24); Bun/Creatinine Ratio 42.7 (12.0-20.0); CO2, Blood 34 mmol/L (21-32); Calcium, Blood 7.2 mg/dL (8.5-10.1); Chloride, Blood 101 mmol/L (98-108); Creatinine, Blood 1.71 mg/dL (0.40-1.00); Globulin, Blood 5.4 g/dL (2.2-4.0); Glomerular Filtration Rate 32 (60-); Glucose, Blood 159 mg/dL (70-99); Potassium, Blood 4.2 mmol/L (3.5-5.5); Sodium, Blood 140 mmol/L (136-145); Total Protein, Blood 7.2 g/dL (6.4-8.2); Troponin I <0.015 ng/mL (0.000-0.040)
[2020-01-12 16:57] LABS: Source, Urine Clean Catch
[2020-01-12 17:23] LABS: Appearance, Urine Clear (Clear); Bilirubin, Urine Neg (Neg); Blood, Urine Neg (Neg); Color, Urine Pale Yellow (P-Yellow); Glucose Qualitative, Urine Neg (Neg); Ketones, Urine Neg (Neg); Leukocyte Esterase, Urine 1+ (Neg); Nitrite, Urine Neg (Neg); Protein, Urine Neg (Neg); Urobilinogen, Urine NORM (Normal)
[2020-01-12 17:27] LABS: Bacteria Rare /hpf; Red Blood Cells, Urine 0-2 /hpf (0-2); Squamous Epithelial Cells Rare /hpf (Few)
[2020-01-12] MEDS ORDERED: METO5 PO (17:53)
[2020-01-12] MEDS ORDERED: Bumetanide2 MG PO (18:17)
[2020-01-12 19:18] LABS: Percent Saturation 8.7 % (15.0-50.0)
[2020-01-12 19:31] LABS: Digoxin (Lanoxin) 0.08 ug/mL (0.80-2.00)
--- NOTE | 2020-01-12 20:20 | NUR ---
ADMISSION: PATIENT IS RECIEVED FROM ER VIA STRETCHER. ABLE TO STAND AND PIVOT TO BSC AND VOID. REPORTS CHRONIC BACK PAIN, VS ARE STABLE, 3 L 02 VIA NC ON. PATIENT IS ORIENTED TO ROOM AND CALL MOULTON. INSTRUCTED TO CALL FOR ASSIST OOB, NON SKID SOCKS ARE APPLIED.
--- NOTE | 2020-01-13 03:08 | NUR ---
SHIFT SUMMARY ASSUMED CARE OF PT AROUND 1999. PT IS A/O X4, DENIES N/T IN EXTREMITIES. HEART SOUNDS REGULAR, DENIES CP AT THIS TIME. LUNG SOUNDS HAVE FINE CRACKLES T/O, PT IS ON 3L NC AT BASELINE, SOB WITH ACTIVITY. 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 PT IS A 1P SBA TO THE COMMODE. URINE CLEAR AND YELLOW. HAS HX OF CDIFF BUT NO LOOSE STOOLS RECENTLY. NO ACUTE EVENTS DURING THE NIGHT. PT SLEPT T/O THE NIGHT. CALL LIGHT IN REACH, BED IN LOWEST POSITION, WILL CONTINUE TO MONITOR UNTIL DAYSHIFT NURSE ARRIVES.
[2020-01-13 04:19] LABS: BASOPHILS ABSOLUTE AUTO 0.03 K/mm3 (0.00-0.23); BASOPHILS PERCENT AUTO 1 % (0-2); EOSINOPHILS ABSOLUTE AUTO 0.21 K/mm3 (0.00-0.68); EOSINOPHILS PERCENT AUTO 4 % (0-6); Hemoglobin 7.7 g/dL (11.5-16.0); IMMATURE GRAN ABSOLUTE AUTO 0.07 K/mm3 (0.00-0.10); IMMATURE GRAN PERCENT AUTO 1 % (0-1); LYMPHOCYTES ABSOLUTE AUTO 1.74 K/mm3 (0.84-5.20); LYMPHOCYTES PERCENT AUTO 33 % (21-46); MONOCYTES ABSOLUTE AUTO 0.51 K/mm3 (0.16-1.47); MONOCYTES PERCENT AUTO 10 % (4-13); Mean Corpuscular HGB 22.8 pg (26.0-34.0); Mean Corpuscular HGB Conc 26.6 g/dL (31.5-36.5); Mean Corpuscular Volume 86 fL (80-100); Mean Platelet Volume 10.4 fL (9.1-12.4); NEUTROPHILS ABSOLUTE AUTO 2.76 K/mm3 (1.96-9.15); NEUTROPHILS PERCENT AUTO 52 % (41-73); NRBC ABSOLUTE 0.08 K/mm3 (0.00-0.02); NRBC Auto 1.5 /100 WBC (0.0-0.2); Platelet Count 327 K/mm3 (150-400); RDW Coefficient Variation 19.5 % (11.7-14.2); RDW Standard Deviation 60.4 fL (35.1-46.3); Red Blood Cell Count 3.38 M/mm3 (3.80-5.20); White Blood Cell Count 5.32 K/mm3 (4.00-11.30)
[2020-01-13 04:43] LABS: Bun/Creatinine Ratio 52.2 (12.0-20.0); Calcium, Blood 6.9 mg/dL (8.5-10.1); Creatinine, Blood 1.38 mg/dL (0.40-1.00)
[2020-01-13 04:46] LABS: Thyroid Stimulating Hormone 5.87 uIU/mL (0.360-4.800)
[2020-01-13 05:09] LABS: Magnesium, Blood 1.1 mg/dL (1.6-2.4)
--- NOTE | 2020-01-13 08:20 | NUR ---
SPOKE TO DR AMATO- NEW ORDER FOR 2G IV MAG OT. PT CURRENTLY INFUSING 2G IV MAG. ORDER RECIEVED TO CANCEL SECOND ORDER. PT LUNG SOUNDS CRACKLES. PT HAS RECIEVED 2.5L OF IVF SINCE APPROXIMATELY 1700 ON 01/12/20. REQUESTED CHEST XR, NEW ORDER FOR IV LASIX TO BE GIVEN. ORDER FOR TYPE AND CROS AND TO TRANSFUSE 1 UNIT PRBCS, HGB 8.8 DOWN TO 7.7 THIS AM. ORDER RECIEVED TO HOLD UNIT UNTIL REPEAT CBC AT 1000, ORDER TO CALL WITH THE RESULT. WILL COME TO SEE THE PT TO DETERMINE IF CHEST XR IS NEEDED. O2 SATS STABLE IN THE 90'S ON 2L PT HOME DOSE IS 3L. NO RECHECK FOR MAG LEVEL UNTIL TOMORROW MORNING. ORDERS RECIEVED- DC SECOND IV INFUSION OF MAG HOLD PRBCS UNTIL REPEAT CBC REPEAT CBC AT 1000 CALL WITH THE RESULT REDUCE IVF TO TKO AT THIS TIME IV LASIX; NO CURRENT O0RDER FOR CHEST XR
[2020-01-13 11:01] LABS: BASOPHILS ABSOLUTE AUTO 0.04 K/mm3 (0.00-0.23); BASOPHILS PERCENT AUTO 1 % (0-2); EOSINOPHILS ABSOLUTE AUTO 0.21 K/mm3 (0.00-0.68); EOSINOPHILS PERCENT AUTO 4 % (0-6); Hematocrit 32.9 % (33.0-51.0); Hemoglobin 8.5 g/dL (11.5-16.0); IMMATURE GRAN ABSOLUTE AUTO 0.06 K/mm3 (0.00-0.10); IMMATURE GRAN PERCENT AUTO 1 % (0-1); LYMPHOCYTES ABSOLUTE AUTO 1.93 K/mm3 (0.84-5.20); LYMPHOCYTES PERCENT AUTO 35 % (21-46); MONOCYTES ABSOLUTE AUTO 0.57 K/mm3 (0.16-1.47); MONOCYTES PERCENT AUTO 10 % (4-13); Mean Corpuscular HGB 22.5 pg (26.0-34.0); Mean Corpuscular HGB Conc 25.8 g/dL (31.5-36.5); Mean Corpuscular Volume 87 fL (80-100); Mean Platelet Volume 10.5 fL (9.1-12.4); NEUTROPHILS PERCENT AUTO 49 % (41-73); NRBC ABSOLUTE 0.11 K/mm3 (0.00-0.02); Platelet Count 353 K/mm3 (150-400); RDW Coefficient Variation 19.5 % (11.7-14.2); RDW Standard Deviation 61.3 fL (35.1-46.3); Red Blood Cell Count 3.78 M/mm3 (3.80-5.20); White Blood Cell Count 5.51 K/mm3 (4.00-11.30)
--- NOTE | 2020-01-13 11:11 | NUR ---
CALLED ISTRATE WITH CBC RESULT. PT HGB UP TO 8.5 UNIT NOT TRANSFUSED. NO TRANSFUSION WARRENTED AT THIS TIME.
--- NOTE | 2020-01-13 14:20 | NUR ---
CALLED DR AMATO- PT WAS SEEN BY PHYSICAL THERAPY AND THE RECOMENDATION WAS HOME AND RESUME HOME HEALTH PT ALREADY HAS. DR AMATO WILL PLACE DISCHARGE ORDERS FOR THE PT SHORTLY. PT WILL GO HOME WITH PO MAG SUPPLEMENT ON MED LIST. PT INFORMED OF THE PLAN FOR DISCHARGE AND IS SPEAKING TO HER DAUGHTER NOW TO ARRANGE FOR HER TO STAY WITH HER TODAY AND TONIGHT.
[2020-01-13] MEDS ORDERED: XARELTO15 MG PO (15:51)
[2020-01-13] MEDS ORDERED: FERSU300 PO (15:52)
[2020-01-13] MEDS ORDERED: ASCO500 PO (15:52)
[2020-01-13] MEDS ORDERED: MAG-OXIDE200 MG PO (15:53)
--- NOTE | 2020-01-13 18:06 | NUR ---
DISCHARGE NOTE- PT WAS GIVEN VERBAL AND WRITTEN DISCHARGE INSTRUCTIONS AND ACKNOWLEDGED UNDERSTANDING OF THEM. IV DC'D PRIOR TO DISCHARGE. PT HAD NO FURTHER QUESTIONS AT THE TIME OF DISCHARGE. PT WAS ESCORTED OUT VIA WC BY THE DISPLAYER MERCHANDISE, WHERE DAUGHTER WAS WAITING TO PICK HER UP.
== END 2020-01-13 16:50 | disposition home health service (06) ==
LOC: ER 15:05 → MEDS 15:06 → ENPENDDIS 01-13 14:24 → MEDS 01-13 16:50
PROVIDERS: Emergency Medicine; Family Medicine; Physician Assistant; ADMIT Internal Medicine
DX: N17.9 Acute kidney failure, unspecified (principal); E11.22 Type 2 diabetes mellitus with diabetic chronic kidney disease; N18.3 Chronic kidney disease, stage 3 (moderate); I48.20 Chronic atrial fibrillation, unspecified; D50.9 Iron deficiency anemia, unspecified; D63.1 Anemia in chronic kidney disease; J84.10 Pulmonary fibrosis, unspecified; E66.9 Obesity, unspecified; J45.909 Unspecified asthma, uncomplicated; M81.0 Age-related osteoporosis without current pathological fracture; E55.9 Vitamin D deficiency, unspecified; K21.9 Gastro-esophageal reflux disease without esophagitis; M10.9 Gout, unspecified; M19.90 Unspecified osteoarthritis, unspecified site; G25.81 Restless legs syndrome; L40.9 Psoriasis, unspecified; F17.200 Nicotine dependence, unspecified, uncomplicated; F41.9 Anxiety disorder, unspecified; F32.9 Major depressive disorder, single episode, unspecified; Z79.01 Long term (current) use of anticoagulants; Z79.4 Long term (current) use of insulin; Z79.899 Other long term (current) drug therapy; Z88.1 Allergy status to other antibiotic agents; Z88.5 Allergy status to narcotic agent; Z88.6 Allergy status to analgesic agent; Z90.49 Acquired absence of other specified parts of digestive tract; Z99.81 Dependence on supplemental oxygen
CPT/HCPCS: 36415; 70450; 80048; 80053; 80162; 81001; 82272; 82728; 82947; 83540; 83550; 83735; 84443; 84484; 85025; 85610; 86850; 86900; 86901; 86923; 87077; 87086; 87186; 93005; 93010; 96360; 96361; 97116; 97162; 99285-25; A9270; A9270-GY; J1940; J3475; J7030

== ENCOUNTER 2020-05-25 20:54 | Inpatient (IN) | payer OTHER ==
[~2020-05-25] VITALS: Ht 157.5 cm; Wt 90.2 kg
[~2020-05-25 20:54] MED LIST changes: +ASCO500 PO; +FERSU300 PO; +MAG-OXIDE200 MG PO
[2020-05-25 21:20] LABS: BASOPHILS ABSOLUTE AUTO 0.06 K/mm3 (0.00-0.23); BASOPHILS PERCENT AUTO 0 % (0-2); EOSINOPHILS ABSOLUTE AUTO 0.23 K/mm3 (0.00-0.68); EOSINOPHILS PERCENT AUTO 1 % (0-6); Hematocrit 36.2 % (33.0-51.0); IMMATURE GRAN ABSOLUTE AUTO 0.16 K/mm3 (0.00-0.10); IMMATURE GRAN PERCENT AUTO 1 % (0-1); LYMPHOCYTES ABSOLUTE AUTO 1.24 K/mm3 (0.84-5.20); LYMPHOCYTES PERCENT AUTO 7 % (21-46); MONOCYTES ABSOLUTE AUTO 0.83 K/mm3 (0.16-1.47); MONOCYTES PERCENT AUTO 5 % (4-13); Mean Corpuscular HGB 22.8 pg (26.0-34.0); Mean Corpuscular HGB Conc 27.6 g/dL (31.5-36.5); Mean Corpuscular Volume 83 fL (80-100); Mean Platelet Volume 10.2 fL (9.1-12.4); NEUTROPHILS ABSOLUTE AUTO 14.33 K/mm3 (1.96-9.15); NEUTROPHILS PERCENT AUTO 85 % (41-73); NRBC ABSOLUTE 0.06 K/mm3 (0.00-0.02); NRBC Auto 0.4 /100 WBC (0.0-0.2); Platelet Count 364 K/mm3 (150-400); RDW Standard Deviation 57.1 fL (35.1-46.3); Red Blood Cell Count 4.39 M/mm3 (3.80-5.20); White Blood Cell Count 16.85 K/mm3 (4.00-11.30)
[2020-05-25 21:36] LABS: Alanine Aminotransfer (ALT/SGP 14 U/L (12-78); Albumin, Blood 2.2 g/dL (3.4-5.0); Albumin/Globulin Ratio 0.4 (0.8-1.8); Alk Phos 155 U/L (50-136); Anion Gap 3 mmol/L (6-16); Aspartate Aminotrans (AST/SGOT 24 U/L (12-37); Bilirubin, Total 0.3 mg/dL (0.1-1.0); Blood Urea Nitrogen 51 mg/dL (8-24); Bun/Creatinine Ratio 41.5 (12.0-20.0); CO2, Blood 31 mmol/L (21-32); Calcium, Blood 7.3 mg/dL (8.5-10.1); Chloride, Blood 101 mmol/L (98-108); Creatinine, Blood 1.23 mg/dL (0.40-1.00); Glomerular Filtration Rate 46 (60-); Glucose, Blood 277 mg/dL (70-99); Potassium, Blood 4.8 mmol/L (3.5-5.5); Sodium, Blood 135 mmol/L (136-145); Total Protein, Blood 7.2 g/dL (6.4-8.2); Troponin I <0.015 ng/mL (0.000-0.040)
[2020-05-25 21:36] LABS: Source, Urine Catheter
[2020-05-25 21:39] LABS: Appearance, Urine Clear (Clear); Bilirubin, Urine Neg (Neg); Blood, Urine Neg (Neg); Color, Urine Yellow (P-Yellow); Glucose Qualitative, Urine 2+ (Neg); Ketones, Urine Neg (Neg); Leukocyte Esterase, Urine 3+ (Neg); Nitrite, Urine Neg (Neg); Protein, Urine Neg (Neg); Urobilinogen, Urine NORM (Normal)
[2020-05-25 21:48] LABS: Bacteria Mod /hpf; Red Blood Cells, Urine 0-2 /hpf (0-2); Squamous Epithelial Cells Few /hpf (Few); White Blood Cells, Urine 50-100 /hpf (0-5)
[2020-05-25 21:49] LABS: Hyaline Casts 0-2 /lpf (0-2)
[2020-05-26 05:23] LABS: Digoxin (Lanoxin) 1.25 ug/mL (0.80-2.00)
--- NOTE | 2020-05-26 07:34 | NUR ---
ASSUMED PATIENT CARE. PATIENT ON COMMODE, NO SIGNS OF ACUTE DISTRESS, WCTM.
--- NOTE | 2020-05-26 07:35 | NUR ---
patient came in for possible sepsis. Patient had a lot of diarrhea overnight that was brought up to dayshift in order to do a c.diff sample in the morning. Initially at arrival the patient was hypotensive but had some improvement with fluid resuscitation. Additionally patient had a lot of anxiety overnight. No either events or clinical significant changes overnight besides those mentioned here.
[2020-05-26 09:55] LABS: BASOPHILS ABSOLUTE AUTO 0.04 K/mm3 (0.00-0.23); BASOPHILS PERCENT AUTO 0 % (0-2); EOSINOPHILS ABSOLUTE AUTO 0.08 K/mm3 (0.00-0.68); EOSINOPHILS PERCENT AUTO 1 % (0-6); Hematocrit 30.8 % (33.0-51.0); Hemoglobin 8.4 g/dL (11.5-16.0); IMMATURE GRAN ABSOLUTE AUTO 0.12 K/mm3 (0.00-0.10); IMMATURE GRAN PERCENT AUTO 1 % (0-1); LYMPHOCYTES ABSOLUTE AUTO 1.17 K/mm3 (0.84-5.20); LYMPHOCYTES PERCENT AUTO 9 % (21-46); MONOCYTES PERCENT AUTO 8 % (4-13); Mean Corpuscular HGB 23.1 pg (26.0-34.0); Mean Corpuscular HGB Conc 27.3 g/dL (31.5-36.5); Mean Corpuscular Volume 85 fL (80-100); Mean Platelet Volume 10.1 fL (9.1-12.4); NEUTROPHILS ABSOLUTE AUTO 10.69 K/mm3 (1.96-9.15); NEUTROPHILS PERCENT AUTO 82 % (41-73); NRBC ABSOLUTE 0.03 K/mm3 (0.00-0.02); NRBC Auto 0.2 /100 WBC (0.0-0.2); Platelet Count 307 K/mm3 (150-400); RDW Coefficient Variation 18.8 % (11.7-14.2); RDW Standard Deviation 57.2 fL (35.1-46.3); Red Blood Cell Count 3.64 M/mm3 (3.80-5.20)
[2020-05-26 10:22] LABS: Albumin, Blood 1.6 g/dL (3.4-5.0); Albumin/Globulin Ratio 0.4 (0.8-1.8); Bilirubin, Total 0.3 mg/dL (0.1-1.0); Bun/Creatinine Ratio 38.2 (12.0-20.0); Calcium, Blood 6.2 mg/dL (8.5-10.1); Creatinine, Blood 1.36 mg/dL (0.40-1.00); Potassium, Blood 3.5 mmol/L (3.5-5.5); Total Protein, Blood 5.6 g/dL (6.4-8.2)
[2020-05-26 12:19] LABS: Adenovirus F 40/41 Not Detected (NOT DETECT); Astrovirus Not Detected (NOT DETECT); Campylobacter Sp Not Detected (NOT DETECT); Cryptosporidium Not Detected (NOT DETECT); Cyclospora Cayetanensis Not Detected (NOT DETECT); E. Coli O157 Not Detected (NOT DETECT); Entamoeba Histolytica Not Detected (NOT DETECT); Enteroaggregative E. coli-EAEC Not Detected (NOT DETECT); Enteropathogenic E. coli-EPEC Not Detected (NOT DETECT); Enterotoxigenic E. coli-ETEC Not Detected (NOT DETECT); Giardia Lamblia Not Detected (NOT DETECT); Norovirus GI/GII Not Detected (NOT DETECT); Plesiomonas Shigelloides Not Detected (NOT DETECT); Rotavirus A Not Detected (NOT DETECT); Salmonella Sp Not Detected (NOT DETECT); Sapovirus Not Detected (NOT DETECT); Shiga Toxin-prod E. coli-STEC Not Detected (NOT DETECT); Shigella/Enteroin E. coli-EIEC Not Detected (NOT DETECT); Vibrio Cholerae Not Detected (NOT DETECT); Vibrio Sp Not Detected (NOT DETECT); Yersinia Enterocolitica Not Detected (NOT DETECT)
[2020-05-26 15:25] LABS: Adenovirus Not Detected (NOT DETECT); Bordetella pertussis Not Detected (NOT DETECT); Chlamydophila pneumoniae Not Detected (NOT DETECT); Coronavirus 229E Not Detected (NOT DETECT); Coronavirus HKU1 Not Detected (NOT DETECT); Coronavirus NL63 Not Detected (NOT DETECT); Coronavirus OC43 Not Detected (NOT DETECT); Human Metapneumovirus Not Detected (NOT DETECT); Human Rhinovirus/Enterovirus Not Detected (NOT DETECT); Influenza A/2009-H1 Not Detected (NOT DETECT); Influenza A/H1 Not Detected (NOT DETECT); Influenza A/H3 Not Detected (NOT DETECT); Influenza B Not Detected (NOT DETECT); Mycoplasma pneumoniae Not Detected (NOT DETECT); Parainfluenza Virus 1 Not Detected (NOT DETECT); Parainfluenza Virus 2 Not Detected (NOT DETECT); Parainfluenza Virus 3 Not Detected (NOT DETECT); Parainfluenza Virus 4 Not Detected (NOT DETECT); Respiratory Syncytial Virus Not Detected (NOT DETECT)
--- NOTE | 2020-05-26 17:26 | NUR ---
PATIENT CONTINUED TO HAVE MULTIPLE EPISODES OF DIARRHEA T/O SHIFT, GI PANEL SENT TODAY AND NEGATIVE FOR C. DIFF. PATIENT'S AFFECT IMPROVED THROUGH DAY, PATIENT SEEMED TO HAVE MORE STRENGTH TODAY AFTER MULTIPLE TRIPS TO BEDSIDE COMMODE, AND SITTING UP IN CHAIR FOR LUNCH INTO AFTERNOON. IVF DISCONTINUED THIS SHIFT. BLOOD SUGAR WELL CONTROLLED THIS SHIFT, PATIENT APPETITE APPEARS TO BE IMPROVING. PATIENT ABLE TO VOID MULTIPLE TIMES TODAY, PATIENT ENDORSES INCREASE EASE OF URINATION TODAY.
--- NOTE | 2020-05-26 19:11 | NUR ---
RELINQUISHED PATIENT CARE.
--- NOTE | 2020-05-26 21:10 | NUR ---
CALL PLACED TO HOSPITALIST TO REPORT NEW CRITICAL RESULT FROM MICROBIOLOGY. CALL BACK PENDING. PT STABLE
[2020-05-27 05:29] LABS: BASOPHILS ABSOLUTE AUTO 0.04 K/mm3 (0.00-0.23); BASOPHILS PERCENT AUTO 0 % (0-2); EOSINOPHILS ABSOLUTE AUTO 0.33 K/mm3 (0.00-0.68); EOSINOPHILS PERCENT AUTO 4 % (0-6); Hematocrit 30.7 % (33.0-51.0); Hemoglobin 8.3 g/dL (11.5-16.0); IMMATURE GRAN PERCENT AUTO 1 % (0-1); LYMPHOCYTES ABSOLUTE AUTO 1.43 K/mm3 (0.84-5.20); LYMPHOCYTES PERCENT AUTO 16 % (21-46); MONOCYTES ABSOLUTE AUTO 0.79 K/mm3 (0.16-1.47); MONOCYTES PERCENT AUTO 9 % (4-13); Mean Corpuscular HGB 22.7 pg (26.0-34.0); Mean Corpuscular Volume 84 fL (80-100); Mean Platelet Volume 10.5 fL (9.1-12.4); NEUTROPHILS ABSOLUTE AUTO 6.32 K/mm3 (1.96-9.15); NEUTROPHILS PERCENT AUTO 70 % (41-73); Platelet Count 305 K/mm3 (150-400); RDW Standard Deviation 58.5 fL (35.1-46.3); Red Blood Cell Count 3.66 M/mm3 (3.80-5.20); White Blood Cell Count 9.01 K/mm3 (4.00-11.30)
[2020-05-27 05:52] LABS: Albumin, Blood 1.7 g/dL (3.4-5.0); Albumin/Globulin Ratio 0.4 (0.8-1.8); Bilirubin, Total 0.1 mg/dL (0.1-1.0); Bun/Creatinine Ratio 35.6 (12.0-20.0); Calcium, Blood 6.4 mg/dL (8.5-10.1); Creatinine, Blood 1.35 mg/dL (0.40-1.00); Globulin, Blood 4.3 g/dL (2.2-4.0); Magnesium, Blood 1.2 mg/dL (1.6-2.4); Potassium, Blood 3.3 mmol/L (3.5-5.5)
--- NOTE | 2020-05-27 06:04 | NUR ---
patient came in for sepsis. Patient's blood cultures came back with a gram-positive cocci, and antibiotics were restarted to treat the blood infection as well as continue to treat her urinary tract infection. No significant changes overnight, no significant events.
--- NOTE | 2020-05-27 18:19 | NUR ---
SHIFT SUMMARY; A/A/OX4 THROUGHOUT SHFIT. 3L O2 VIA NC. SELF REPOSITIONS IN BED WITHOUT DIFFICULTY. INDEPENDANT TO BEDSIDE COMMODE. NO ACUTE CHANGES DURING SHIFT. WILL CONTINUE TO MONITOR.
[2020-05-27 21:33] LABS: Vancomycin, Trough 15.8 ug/mL (5.0-10.0)
[2020-05-28 04:21] LABS: BASOPHILS ABSOLUTE AUTO 0.04 K/mm3 (0.00-0.23); BASOPHILS PERCENT AUTO 1 % (0-2); EOSINOPHILS ABSOLUTE AUTO 0.38 K/mm3 (0.00-0.68); EOSINOPHILS PERCENT AUTO 5 % (0-6); Hematocrit 30.6 % (33.0-51.0); Hemoglobin 8.1 g/dL (11.5-16.0); IMMATURE GRAN PERCENT AUTO 1 % (0-1); LYMPHOCYTES ABSOLUTE AUTO 1.35 K/mm3 (0.84-5.20); LYMPHOCYTES PERCENT AUTO 16 % (21-46); MONOCYTES ABSOLUTE AUTO 0.75 K/mm3 (0.16-1.47); MONOCYTES PERCENT AUTO 9 % (4-13); Mean Corpuscular HGB 22.6 pg (26.0-34.0); Mean Corpuscular HGB Conc 26.5 g/dL (31.5-36.5); Mean Corpuscular Volume 85 fL (80-100); Mean Platelet Volume 10.7 fL (9.1-12.4); NEUTROPHILS ABSOLUTE AUTO 5.72 K/mm3 (1.96-9.15); NEUTROPHILS PERCENT AUTO 69 % (41-73); Platelet Count 316 K/mm3 (150-400); RDW Coefficient Variation 18.9 % (11.7-14.2); RDW Standard Deviation 58.4 fL (35.1-46.3); Red Blood Cell Count 3.59 M/mm3 (3.80-5.20); White Blood Cell Count 8.34 K/mm3 (4.00-11.30)
[2020-05-28 04:47] LABS: Albumin, Blood 1.7 g/dL (3.4-5.0); Albumin/Globulin Ratio 0.4 (0.8-1.8); Bilirubin, Total 0.2 mg/dL (0.1-1.0); Bun/Creatinine Ratio 40.4 (12.0-20.0); Calcium, Blood 6.9 mg/dL (8.5-10.1); Creatinine, Blood 1.14 mg/dL (0.40-1.00); Globulin, Blood 4.6 g/dL (2.2-4.0); Magnesium, Blood 1.7 mg/dL (1.6-2.4); Potassium, Blood 3.6 mmol/L (3.5-5.5); Total Protein, Blood 6.3 g/dL (6.4-8.2)
--- NOTE | 2020-05-28 05:42 | NUR ---
patient came in for sepsis. Remains on covid-19 r/o. No significant changes overnight, no significant events.
--- NOTE | 2020-05-28 07:18 | NUR ---
ASSUMED PATIENT CARE. PATIENT RESTING COMFORTABLY IN BED, CONVERSING WITH NURSING STAFF. NO SIGNS OF ACUTE DISTRESS, WCTM.
--- NOTE | 2020-05-28 17:41 | NUR ---
NO ACUTE EVENTS THIS SHIFT, VSS. PATIENT ABLE TO TOLERATE ROOM AIR THIS SHIFT AT TIMES, 0.5-2 L NASAL CANNULA WHEN PATIENT REQUESTED FOR FEELINGS OF INCREASED WORK OF BREATHING. BLE EDEMA NOTED, DR. LONG NOTIFIED OF PATIENT'S HOME DOSE OF BUMEX, ORDERS RECIEVED TO RESTART AT HOME DOSE IN MORNING. PATIENT ABLE TO TRANSFER WITH SBA TO COMMODE, PATIENT ABLE TO INDEPENDENTLY REPOSITION AND DANGLE AT EDGE OF BED. PATIENT ENDORSES FEELING MUCH BETTER THAN WHEN FIRST ADMITTED. PLAN IS TO CONTINUE IV ABX FOR SEPSIS AND CELLUTITIS.
[2020-05-29 03:50] LABS: BASOPHILS ABSOLUTE AUTO 0.04 K/mm3 (0.00-0.23); BASOPHILS PERCENT AUTO 1 % (0-2); EOSINOPHILS ABSOLUTE AUTO 0.36 K/mm3 (0.00-0.68); EOSINOPHILS PERCENT AUTO 5 % (0-6); Hematocrit 31.9 % (33.0-51.0); Hemoglobin 8.4 g/dL (11.5-16.0); IMMATURE GRAN ABSOLUTE AUTO 0.08 K/mm3 (0.00-0.10); IMMATURE GRAN PERCENT AUTO 1 % (0-1); LYMPHOCYTES ABSOLUTE AUTO 1.22 K/mm3 (0.84-5.20); LYMPHOCYTES PERCENT AUTO 17 % (21-46); MONOCYTES ABSOLUTE AUTO 0.56 K/mm3 (0.16-1.47); MONOCYTES PERCENT AUTO 8 % (4-13); Mean Corpuscular HGB Conc 26.3 g/dL (31.5-36.5); Mean Corpuscular Volume 84 fL (80-100); Mean Platelet Volume 10.3 fL (9.1-12.4); NEUTROPHILS ABSOLUTE AUTO 5.09 K/mm3 (1.96-9.15); NEUTROPHILS PERCENT AUTO 69 % (41-73); Platelet Count 310 K/mm3 (150-400); RDW Coefficient Variation 18.9 % (11.7-14.2); RDW Standard Deviation 57.3 fL (35.1-46.3); Red Blood Cell Count 3.81 M/mm3 (3.80-5.20); White Blood Cell Count 7.35 K/mm3 (4.00-11.30)
[2020-05-29 04:06] LABS: Albumin, Blood 1.9 g/dL (3.4-5.0); Albumin/Globulin Ratio 0.4 (0.8-1.8); Bilirubin, Total 0.2 mg/dL (0.1-1.0); Calcium, Blood 7.6 mg/dL (8.5-10.1); Creatinine, Blood 1.17 mg/dL (0.40-1.00); Globulin, Blood 4.7 g/dL (2.2-4.0); Magnesium, Blood 1.7 mg/dL (1.6-2.4); Potassium, Blood 4.2 mmol/L (3.5-5.5); Total Protein, Blood 6.6 g/dL (6.4-8.2)
--- NOTE | 2020-05-29 05:06 | NUR ---
TRANSFER PT WAS TRANSFERRED FROM PCU PER BED TO ROOM 232. PT ALERT.ONLY C/O LEG CRAMPS. PT REPORTS THIS IS HER BASELINE.ALSO NOTE REDNESS BLE WHICH PT REPORTS HER PSORIASIS AND HX CELLULITIS. PT CURRENTLY ON ANTIBIOTICS AND IS IN CONTACT ISOLATION.MED PO FOR PAIN.
--- NOTE | 2020-05-29 06:48 | NUR ---
SUMMARY PT SLEEPING AFTER PAIN MEDS.
--- NOTE | 2020-05-29 07:05 | NUR ---
recvd report from previous shift rn lester, pt sleeping in bed, bed in lowest position, bed rails up x 2, call light within reach
--- NOTE | 2020-05-29 12:00 | NUR ---
DR BEAUCHAMPTRATE ROUNDING ON PT
--- NOTE | 2020-05-29 19:48 | NUR ---
shift summary: pt remained a/o x 4, pleasant/cooperative. pt up in chair for meal x 1, pain controlled per dec. SOB with exertion, remained comfortable on 3l NC. pt's friend visited and brought pt's dog for visit. pt seemed to enjoy this visit. pt tolerated PO intake with no n/v, urine output >500 ml this shift.
[2020-05-29 21:31] LABS: Vancomycin, Trough 20.6 ug/mL (5.0-10.0)
[2020-05-30 04:54] LABS: BASOPHILS ABSOLUTE AUTO 0.03 K/mm3 (0.00-0.23); BASOPHILS PERCENT AUTO 1 % (0-2); EOSINOPHILS ABSOLUTE AUTO 0.42 K/mm3 (0.00-0.68); EOSINOPHILS PERCENT AUTO 7 % (0-6); Hematocrit 30.5 % (33.0-51.0); Hemoglobin 8.2 g/dL (11.5-16.0); IMMATURE GRAN ABSOLUTE AUTO 0.09 K/mm3 (0.00-0.10); IMMATURE GRAN PERCENT AUTO 2 % (0-1); LYMPHOCYTES ABSOLUTE AUTO 1.32 K/mm3 (0.84-5.20); LYMPHOCYTES PERCENT AUTO 22 % (21-46); MONOCYTES PERCENT AUTO 10 % (4-13); Mean Corpuscular HGB 22.9 pg (26.0-34.0); Mean Corpuscular HGB Conc 26.9 g/dL (31.5-36.5); Mean Corpuscular Volume 85 fL (80-100); Mean Platelet Volume 10.5 fL (9.1-12.4); NEUTROPHILS ABSOLUTE AUTO 3.52 K/mm3 (1.96-9.15); NEUTROPHILS PERCENT AUTO 59 % (41-73); Platelet Count 312 K/mm3 (150-400); RDW Coefficient Variation 18.9 % (11.7-14.2); RDW Standard Deviation 59.1 fL (35.1-46.3); Red Blood Cell Count 3.58 M/mm3 (3.80-5.20); White Blood Cell Count 5.98 K/mm3 (4.00-11.30)
--- NOTE | 2020-05-30 05:18 | NUR ---
SHIFT SUMMARY LYING IN SEMI FOWLERS WITH EYES OPEN WHILE WATCHING TV. RESPIRATIONS EVEN AND UNLABORED ON O2 @ 3L/NC. LUNG SOUNDS CLEAR WITH CRACKLES NOTED IN BASES BILATERALLY. ABDOMEN SOFT AND NONDISTENDED. BOWEL SOUNDS NOTED IN ALL QUADS. MEDICATED FOR PAIN X2 THIS SHIFT. REPOSITIONS SELF FOR COMFORT. BLE ELEVATED ON BED. DENIES PAIN, DISCOMFORT, OR FURTHER NEEDS AT THIS TIME. SAFETY MEASURES IN PLACE. WILL CONTINUE TO MONITOR AND GIVE HAND OFF TO ONCOMING SHIFT USING SBAR DURING BEDSIDE REPORT.
[2020-05-30 05:21] LABS: Albumin, Blood 1.6 g/dL (3.4-5.0); Albumin/Globulin Ratio 0.4 (0.8-1.8); Bilirubin, Total 0.3 mg/dL (0.1-1.0); Bun/Creatinine Ratio 36.4 (12.0-20.0); Calcium, Blood 7.9 mg/dL (8.5-10.1); Creatinine, Blood 1.1 mg/dL (0.40-1.00); Globulin, Blood 4.5 g/dL (2.2-4.0); Potassium, Blood 4.7 mmol/L (3.5-5.5); Total Protein, Blood 6.1 g/dL (6.4-8.2)
--- NOTE | 2020-05-30 15:20 | NUR ---
assumed care of pt from previous YUSEF Ramos. pt a/o x 4, sitting up on the commode, pleasant/cooperative, call light within reach
--- NOTE | 2020-05-30 15:27 | NUR ---
SUMMARY NO ACUTE CHANGES NOTED THROUGH THE DAY. PT REMAINS A&O X4, 3 L O2 VIA NC, DENIES SOB/CP, VSS, TOLERATING PO INTAKE, VOIDING WNL. PT ENC TO ELEVATE BLE. PAIN MEDICATED PER EMAR. CALL LIGHT IN REACH. REPORT GIVEN TO SANA HOLBROOK
--- NOTE | 2020-05-30 17:55 | NUR ---
pt sitting up in bed having dinner, daughter and pt's dog visiting.
[2020-05-31 04:29] LABS: BASOPHILS ABSOLUTE AUTO 0.04 K/mm3 (0.00-0.23); BASOPHILS PERCENT AUTO 1 % (0-2); EOSINOPHILS PERCENT AUTO 7 % (0-6); Hematocrit 31.3 % (33.0-51.0); Hemoglobin 8.4 g/dL (11.5-16.0); IMMATURE GRAN ABSOLUTE AUTO 0.07 K/mm3 (0.00-0.10); IMMATURE GRAN PERCENT AUTO 1 % (0-1); LYMPHOCYTES ABSOLUTE AUTO 1.26 K/mm3 (0.84-5.20); LYMPHOCYTES PERCENT AUTO 21 % (21-46); MONOCYTES ABSOLUTE AUTO 0.51 K/mm3 (0.16-1.47); MONOCYTES PERCENT AUTO 9 % (4-13); Mean Corpuscular HGB 22.8 pg (26.0-34.0); Mean Corpuscular HGB Conc 26.8 g/dL (31.5-36.5); Mean Corpuscular Volume 85 fL (80-100); Mean Platelet Volume 10.5 fL (9.1-12.4); NEUTROPHILS ABSOLUTE AUTO 3.72 K/mm3 (1.96-9.15); NEUTROPHILS PERCENT AUTO 62 % (41-73); Platelet Count 345 K/mm3 (150-400); RDW Coefficient Variation 18.6 % (11.7-14.2); RDW Standard Deviation 57.6 fL (35.1-46.3); Red Blood Cell Count 3.68 M/mm3 (3.80-5.20)
--- NOTE | 2020-05-31 04:37 | NUR ---
SHIFT SUMMARY: TOSHIA IS A&OX4. VSS, NO ACUTE EVENTS OVERNIGHT. SHE DOES COMPLAIN OF 9/10 PAIN IN THE LLQ QUADRANT WHICH SHE STATES HAS BEEN OCCURING FOR A FEW MONTHS. SHE STATES THAT SHE HAS ADDRESSED THIS WITH HER DOCTOR OUTPATIENT. IV TO R HAND PATENT. SHE IS A ONE PERSON ASSIST TO THE BEDSIDE COMMODE. SHE IS ABLE TO MAKE HER NEEDS KNOWN. SHE IS LYING IN BED WITH HER CALL LIGHT IN REACH. WILL REPORT TO DAY SHIFT RN.
[2020-05-31 04:51] LABS: Albumin, Blood 1.7 g/dL (3.4-5.0); Albumin/Globulin Ratio 0.4 (0.8-1.8); Bilirubin, Total 0.3 mg/dL (0.1-1.0); Bun/Creatinine Ratio 29.6 (12.0-20.0); Calcium, Blood 8.1 mg/dL (8.5-10.1); Creatinine, Blood 1.15 mg/dL (0.40-1.00); Globulin, Blood 4.6 g/dL (2.2-4.0); Potassium, Blood 5.2 mmol/L (3.5-5.5); Total Protein, Blood 6.3 g/dL (6.4-8.2)
--- NOTE | 2020-05-31 16:01 | NUR ---
SHIFT SUMMARY: PATIENT HAS BEEN ALERT AND ORIENTATED THROUGHOUT SHIFT. SHE IS CURRENTLY ON 3L OXYGEN, WHICH IS HER BASELINE AT HOME. SHE HAS BEEN MEDICATED FOR HER PAIN THIS MORNING. WILL CONTINUE TO MONITOR HER PAIN DIRECTED BY ORDERS. SHE REPOSITIONS HERSELF FREQUENTLY IN THE ROOM INDEPENDENTLY. SHE IS A SBA WHEN NEEDING TO USE THE BEDSIDE COMMODE. SHE WAS ABLE TO SHOWER TODAY WITH ONE OF THE MELTER HELPER'S SUPERVISING, WHICH SEEMED TO HELP HER RELAX MORE. WILL CONTINUE TO MONITOR PATIENT UNTIL NIGHTSHIFT NURSE COMES TO RECIEVE REPORT.
[2020-05-31 21:19] LABS: Vancomycin, Trough 21.9 ug/mL (5.0-10.0)
[2020-06-01 04:50] LABS: BASOPHILS ABSOLUTE AUTO 0.06 K/mm3 (0.00-0.23); BASOPHILS PERCENT AUTO 1 % (0-2); EOSINOPHILS ABSOLUTE AUTO 0.37 K/mm3 (0.00-0.68); EOSINOPHILS PERCENT AUTO 5 % (0-6); Hemoglobin 8.8 g/dL (11.5-16.0); IMMATURE GRAN ABSOLUTE AUTO 0.12 K/mm3 (0.00-0.10); IMMATURE GRAN PERCENT AUTO 2 % (0-1); LYMPHOCYTES ABSOLUTE AUTO 1.62 K/mm3 (0.84-5.20); LYMPHOCYTES PERCENT AUTO 23 % (21-46); MONOCYTES ABSOLUTE AUTO 0.62 K/mm3 (0.16-1.47); MONOCYTES PERCENT AUTO 9 % (4-13); Mean Corpuscular HGB 23.3 pg (26.0-34.0); Mean Corpuscular HGB Conc 27.5 g/dL (31.5-36.5); Mean Corpuscular Volume 85 fL (80-100); Mean Platelet Volume 9.8 fL (9.1-12.4); NEUTROPHILS ABSOLUTE AUTO 4.34 K/mm3 (1.96-9.15); NEUTROPHILS PERCENT AUTO 61 % (41-73); Platelet Count 345 K/mm3 (150-400); RDW Coefficient Variation 18.8 % (11.7-14.2); Red Blood Cell Count 3.78 M/mm3 (3.80-5.20); White Blood Cell Count 7.13 K/mm3 (4.00-11.30)
[2020-06-01 05:13] LABS: Magnesium, Blood 1.3 mg/dL (1.6-2.4); Vancomycin, Trough 19.7 ug/mL (5.0-10.0)
--- NOTE | 2020-06-01 06:35 | NUR ---
SHIFT SUMMARY: TOSHIA IS A&OX4, TOLERAING PO INTAKE WELL. VSS, NO ACUTE EVENTS OVERNIGHT. SHE IS INDEPENDENT TO THE BEDSIDE COMMODE. IV TO L AC PATENT. SHE IS ABLE TO MAKE HER NEEDS KNOWN. SHE IS LYING IN BED WITH THE CALL LIGHT IN REACH. WILL REPORT TO DAY SHIFT RN.
[2020-06-01] MEDS ORDERED: ONDA4ODT MM (10:12)
[2020-06-01] MEDS ORDERED: Banatrol1 EACH PO (10:15)
[2020-06-01] MEDS ORDERED: DOXY100 PO (10:16)
--- NOTE | 2020-06-01 11:00 | NUR ---
DISCHARGE NOTE: PATIENT WILL BE DISCHARGED TODAY, AND WILL BE TAKEN HOME BY [facility]. HER IV WAS TAKEN OUT AND HER BELONGINGS ARE PUT TOGETHER READY TO GO HOME. DISCHARGE INSTRUCTIONS WERE TOLD TO THE PATIENT. SHE WAS RECEPTIVE AND VERBALIZED BACK THAT SHE UNDERSTOOD. SHE HAD NO FURTHER QUESTIONS AT THIS TIME. SHE IS EAGERLY WAITING TO GO HOME. WILL CONTINUE TO MONITOR UNTIL TRANSPORT ARRIVES.
== END 2020-06-01 11:28 | disposition home or self-care (01) | DRG 871 ==
LOC: ER 20:54 → PCU 23:59 → SURS 05-26 01:11 → ER 05-26 01:11 → PCU 05-26 01:16 → SURS 05-29 04:24
PROVIDERS: Family Medicine; Internal Medicine; Physician Assistant; ADMIT Internal Medicine
DX: A41.02 Sepsis due to Methicillin resistant Staphylococcus aureus (principal); J18.9 Pneumonia, unspecified organism; J84.9 Interstitial pulmonary disease, unspecified; I50.32 Chronic diastolic (congestive) heart failure; N39.0 Urinary tract infection, site not specified; L03.115 Cellulitis of right lower limb; G93.40 Encephalopathy, unspecified; J84.10 Pulmonary fibrosis, unspecified; E11.21 Type 2 diabetes mellitus with diabetic nephropathy; M81.0 Age-related osteoporosis without current pathological fracture; E03.9 Hypothyroidism, unspecified; G25.81 Restless legs syndrome; J45.909 Unspecified asthma, uncomplicated; Z87.891 Personal history of nicotine dependence; L40.9 Psoriasis, unspecified; Z79.4 Long term (current) use of insulin; E11.22 Type 2 diabetes mellitus with diabetic chronic kidney disease; I27.20 Pulmonary hypertension, unspecified; N18.3 Chronic kidney disease, stage 3 (moderate); Z99.81 Dependence on supplemental oxygen; E11.69 Type 2 diabetes mellitus with other specified complication; E83.42 Hypomagnesemia; Z20.828 Contact with and (suspected) exposure to other viral communicable diseases; K21.9 Gastro-esophageal reflux disease without esophagitis
CPT/HCPCS: 0097U; 0099U; 36415; 51701; 71045; 80053; 80162; 80202; 81001; 82947; 83605; 83735; 83880; 84484; 85025; 87040; 87070; 87077; 87086; 87147; 87186; 87205; 93005; 93010; 94640; 94760; 96365; 96366; 96367; 99285-25; A9270; A9270-GY; J0690; J0696; J1956; J3370; J3475; J7030; J7050; U0003

== ENCOUNTER 2020-06-10 17:19 | Inpatient (IN) | payer OTHER ==
[~2020-06-10] VITALS: Ht 157.5 cm; Wt 77.8 kg
[~2020-06-10 17:19] MED LIST changes: +Banatrol1 EACH PO
[2020-06-10 21:46] LABS: BASOPHILS ABSOLUTE AUTO 0.08 K/mm3 (0.00-0.23); BASOPHILS PERCENT AUTO 1 % (0-2); EOSINOPHILS ABSOLUTE AUTO 0.37 K/mm3 (0.00-0.68); EOSINOPHILS PERCENT AUTO 5 % (0-6); Hematocrit 37.8 % (33.0-51.0); Hemoglobin 10.1 g/dL (11.5-16.0); IMMATURE GRAN ABSOLUTE AUTO 0.05 K/mm3 (0.00-0.10); IMMATURE GRAN PERCENT AUTO 1 % (0-1); LYMPHOCYTES ABSOLUTE AUTO 1.93 K/mm3 (0.84-5.20); LYMPHOCYTES PERCENT AUTO 23 % (21-46); MONOCYTES ABSOLUTE AUTO 0.53 K/mm3 (0.16-1.47); MONOCYTES PERCENT AUTO 6 % (4-13); Mean Corpuscular HGB 22.8 pg (26.0-34.0); Mean Corpuscular HGB Conc 26.7 g/dL (31.5-36.5); Mean Corpuscular Volume 85 fL (80-100); Mean Platelet Volume 11.2 fL (9.1-12.4); NEUTROPHILS ABSOLUTE AUTO 5.32 K/mm3 (1.96-9.15); NEUTROPHILS PERCENT AUTO 64 % (41-73); Platelet Count 382 K/mm3 (150-400); RDW Coefficient Variation 18.6 % (11.7-14.2); RDW Standard Deviation 57.5 fL (35.1-46.3); Red Blood Cell Count 4.43 M/mm3 (3.80-5.20); White Blood Cell Count 8.28 K/mm3 (4.00-11.30)
[2020-06-10 22:18] LABS: Source, Urine Clean Catch
[2020-06-10 22:21] LABS: Bilirubin, Urine Neg (Neg); Blood, Urine Neg (Neg); Glucose Qualitative, Urine 2+ (Neg); Ketones, Urine Neg (Neg); Leukocyte Esterase, Urine Neg (Neg); Nitrite, Urine Neg (Neg); Protein, Urine Neg (Neg); Specific Gravity, Urine 1.015 (1.003-1.022); Urobilinogen, Urine NORM (Normal)
[2020-06-10 22:22] LABS: Appearance, Urine Clear (Clear); Color, Urine Yellow (P-Yellow)
[2020-06-10] MEDS ORDERED: REMERON15 MG PO (22:24)
[2020-06-10] MEDS ORDERED: Bumetanide2 MG PO (22:50)
[2020-06-10 23:31] LABS: Alanine Aminotransfer (ALT/SGP 34 U/L (12-78); Albumin, Blood 2.1 g/dL (3.4-5.0); Albumin/Globulin Ratio 0.4 (0.8-1.8); Alk Phos 258 U/L (50-136); Anion Gap 6 mmol/L (6-16); Aspartate Aminotrans (AST/SGOT 57 U/L (12-37); Bilirubin, Total 0.2 mg/dL (0.1-1.0); Blood Urea Nitrogen 56 mg/dL (8-24); Bun/Creatinine Ratio 37.3 (12.0-20.0); CO2, Blood 33 mmol/L (21-32); Calcium, Blood 7.1 mg/dL (8.5-10.1); Chloride, Blood 98 mmol/L (98-108); Globulin, Blood 5.8 g/dL (2.2-4.0); Glomerular Filtration Rate 37 (60-); Glucose, Blood 131 mg/dL (70-99); Potassium, Blood 3.5 mmol/L (3.5-5.5); Sodium, Blood 137 mmol/L (136-145); Total Protein, Blood 7.9 g/dL (6.4-8.2)
[2020-06-10 23:39] LABS: Digoxin (Lanoxin) 0.92 ug/mL (0.80-2.00)
[2020-06-10 23:55] LABS: Magnesium, Blood 1.2 mg/dL (1.6-2.4)
[2020-06-11] MEDS ORDERED: EUTHYROX137 MCG PO (00:17)
--- NOTE | 2020-06-11 04:15 | NUR ---
SHIFT SUMMARY: VSS. AFEB. AAOX3. 02 SAT 97% ON 2L VIA NC. SATS DOWN TO 88% WHEN PT TALKING. IV FLUIDS AND ALBUMIN ADMINISTERED PER ORDERS. PT TOOK HER TIME UPON STANDING WHEN TRANSFERRING FROM STRETCHER TO BED. DENIED FEELING LIGHT HEADED AT THE TIME. NO OBSERVED OR REPORTED EPISODES OF PT HAVING SEIZURE LIKE ACTIVITY OR LOSING CONSCIOUSNESS TONIGHT. SCAB ON OCCIPITAL SCALP SCABBED. DENIES HEADACHE. PERCOCET GIVEN FOR CHR. BACK PAIN. NO ACUTE CONCERNS AT THIS TIME. WILL CONT TO MONITOR.
[2020-06-11 04:48] LABS: BASOPHILS ABSOLUTE AUTO 0.06 K/mm3 (0.00-0.23); BASOPHILS PERCENT AUTO 1 % (0-2); EOSINOPHILS ABSOLUTE AUTO 0.36 K/mm3 (0.00-0.68); EOSINOPHILS PERCENT AUTO 5 % (0-6); Hematocrit 33.3 % (33.0-51.0); IMMATURE GRAN ABSOLUTE AUTO 0.04 K/mm3 (0.00-0.10); IMMATURE GRAN PERCENT AUTO 1 % (0-1); LYMPHOCYTES ABSOLUTE AUTO 2.25 K/mm3 (0.84-5.20); LYMPHOCYTES PERCENT AUTO 29 % (21-46); MONOCYTES ABSOLUTE AUTO 0.62 K/mm3 (0.16-1.47); MONOCYTES PERCENT AUTO 8 % (4-13); Mean Corpuscular HGB 23.1 pg (26.0-34.0); Mean Corpuscular Volume 86 fL (80-100); Mean Platelet Volume 11.5 fL (9.1-12.4); NEUTROPHILS ABSOLUTE AUTO 4.42 K/mm3 (1.96-9.15); NEUTROPHILS PERCENT AUTO 57 % (41-73); NRBC ABSOLUTE 0.02 K/mm3 (0.00-0.02); NRBC Auto 0.3 /100 WBC (0.0-0.2); Platelet Count 343 K/mm3 (150-400); RDW Coefficient Variation 18.2 % (11.7-14.2); RDW Standard Deviation 57.5 fL (35.1-46.3); Red Blood Cell Count 3.89 M/mm3 (3.80-5.20); White Blood Cell Count 7.75 K/mm3 (4.00-11.30)
--- NOTE | 2020-06-11 05:11 | NUR ---
SYNCOPAL EPISODE/DECREASE IN LOC: UPON GETTING UP TO [facility] [place] THIS AM, PT BECAME LIMP AND SLUMPED FORWARD. SHE TOOK ABOUT A MINUTE TO BEGIN RESPONDING AGAIN AT BASELINE. CONTINUED TO BREATHE THROUGHOUT INCIDENT. NO TONIC CLONIC MUSCLE MOVEMENTS. SHE ATTEMPTED TO ANSWER QUESTIONS INITIALLY BUT SLURRED WORDS. AFTER A MINUTE SHE WAS SPEAKING AT BASELINE AND ANSWERING QUESTIONS APPROPRIATELY. NO CHANGES TO RATE AND RHYTHM DURING THIS TIME PER TELE SPORTS PHOTOGRAPHER. BP AT TIME OF INCIDENT 76/55. AFTER SEVERAL MINUTES OF SITTING UP, BP 84/45. PT COMPLETED BM AND ASSISTED BACK TO BED WITH NO FURTHER INCIDENT. BP RECEHCKED WHEN PT IN BED 112/57. CBG 126. PT AAOX3. EATING SNACK AT THIS TIME. WILL CONT TO MONITOR.
[2020-06-11 05:12] LABS: Albumin, Blood 2.2 g/dL (3.4-5.0); Albumin/Globulin Ratio 0.5 (0.8-1.8); Bilirubin, Total 0.2 mg/dL (0.1-1.0); Bun/Creatinine Ratio 41.2 (12.0-20.0); Calcium, Blood 6.6 mg/dL (8.5-10.1); Creatinine, Blood 1.36 mg/dL (0.40-1.00); Globulin, Blood 4.3 g/dL (2.2-4.0); Potassium, Blood 2.9 mmol/L (3.5-5.5); Total Protein, Blood 6.5 g/dL (6.4-8.2)
--- NOTE | 2020-06-11 06:26 | NUR ---
CALL TO HOSPITALIST. PT K+ 2.9 THIS AM. PT TAKES BUMEX AND K+ SUPPLEMENTATION AT HOME. DR. PERSON ORDERED A OT DOSE OF KCL 40MEQ. NOTED.
--- NOTE | 2020-06-11 12:59 | NUR ---
Patient is sitting up in bed and alert. Patient tells me about her youngest daughter that lives with her and how she has 2 jobs and plays league softball and is rarely home. Patient tells me about her falls and her curiousity as to why it keeps happening. 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 Patient explains about how important her martínez is and how without "God" she would not have made it this far in life (donald attends the [employer] catholic, [employer]). I normalize patient's experience, reinforce helpful attitudes and practices and provide therapeutic listening, pastoral beauty counselor and prayer. PAtient responds well and shows signs of restored martínez and improved peace. I will continue to assist patient in explore sources of purpose.
--- NOTE | 2020-06-11 17:07 | NUR ---
SHIFT SUMMARY PT RESTING QUIETLY DURING SHIFT REPORT. WOKE BRIEFLY. DENIED NEEDS. PT ADMITTED FOR GLF AND DEHYDRATION. PER SHIFT REPORT, PT BECOMING HYPOTENSIVE WHEN UP TO BSC. DR MCCABE IN TO SEE PT AND LATER DR ARORA. ORTHO VS X1 TO BE DONE, BUT PT UNABLE TO STAND LONG ENOUGH TO OBTAIN. P/T ALSO ATTEMPTED TO HELP PT STAND WHILE LINE DECORATOR OBTAINED ORTHO VS, BUT PT BECAME WEAK AND DIZZY, WANTING TO SIT DOWN. DR ARORA NOTIFIED. WILL CONTINUE TO ATTEMPT TO OBTAIN. PT MEDICATED X1 FOR CHRONIC BACK PAIN. UP TO BSC FOR BM; LOOSE STOOLS REPORTED. PER SHIFT REPORT C-DIFF NEG. PT WITH SCATTERED SCABS, PSORIASIS, AND YEAST TO SKIN FOLDS. [place]STATIN CREAM ORDERED AND APPLIED. PT RESTING QUIETLY IN BED, WATCHING TV AND TEXTING ON PHONE. NO ACUTE DISTRESS NOTED OR REPORTED. CALL LT IN REACH.
--- NOTE | 2020-06-12 05:53 | NUR ---
SHIFT SUMMARY AOX4. DENIES DYSPNEA OR NAUSEA. SPO2 >90% ON 3L O2, STATES BASELINE. E/U RESPIRATIONS. LUNGS ARE DIM & COURSE IN THE BASES. ORTHOSTATIC BP TAKEN THIS AM & POSITIVE, NOTIFIED CHARGE NURSE ROBYN Cheek. LYING 111/59, SITTING 102/63, STANDING 84/55. TELE NSR @67. REPORTS 9/10 PAIN IN BACK THIS AM & MEDICATED 1X c PERCOCET PER ORDERS. CBG @ WAS 247, PROVIDED COVERAGE PER ORDERS. CALL LIGHT IN REACH. TM.
[2020-06-12 06:25] LABS: BASOPHILS ABSOLUTE AUTO 0.06 K/mm3 (0.00-0.23); BASOPHILS PERCENT AUTO 1 % (0-2); EOSINOPHILS PERCENT AUTO 7 % (0-6); Hematocrit 33.4 % (33.0-51.0); Hemoglobin 9.3 g/dL (11.5-16.0); IMMATURE GRAN ABSOLUTE AUTO 0.02 K/mm3 (0.00-0.10); IMMATURE GRAN PERCENT AUTO 0 % (0-1); LYMPHOCYTES ABSOLUTE AUTO 1.97 K/mm3 (0.84-5.20); LYMPHOCYTES PERCENT AUTO 29 % (21-46); MONOCYTES ABSOLUTE AUTO 0.58 K/mm3 (0.16-1.47); MONOCYTES PERCENT AUTO 9 % (4-13); Mean Corpuscular HGB 23.4 pg (26.0-34.0); Mean Corpuscular HGB Conc 27.8 g/dL (31.5-36.5); Mean Corpuscular Volume 84 fL (80-100); Mean Platelet Volume 10.6 fL (9.1-12.4); NEUTROPHILS ABSOLUTE AUTO 3.63 K/mm3 (1.96-9.15); NEUTROPHILS PERCENT AUTO 54 % (41-73); Platelet Count 355 K/mm3 (150-400); RDW Coefficient Variation 18.6 % (11.7-14.2); RDW Standard Deviation 56.1 fL (35.1-46.3); Red Blood Cell Count 3.98 M/mm3 (3.80-5.20); White Blood Cell Count 6.76 K/mm3 (4.00-11.30)
[2020-06-12 06:41] LABS: Bun/Creatinine Ratio 35.6 (12.0-20.0); Calcium, Blood 6.7 mg/dL (8.5-10.1); Creatinine, Blood 1.6 mg/dL (0.40-1.00); Potassium, Blood 3.1 mmol/L (3.5-5.5)
--- NOTE | 2020-06-12 12:07 | NUR ---
Patient tells me about the medical plan and how she is doing emotioanlly. Patient then shares about some of the terrible events and relationships she has survived. We talks about her coping strategies and what might work in her current set of circumstances. I listen empathically and provide pastoral ip counsel and prayer. Patient responds well and shows signs of catharsis and improved hope. I will continue to remain available to patient and family.
--- NOTE | 2020-06-12 15:53 | NUR ---
SHIFT SUMMARY PT AWAKE THIS AM, DURING SHIFT REPORT. NO C/O. PT REPORTED THAT SHE THOUGHT SHE WAS FEELING BETTER. NOC SHIFT ABLE TO OBTAIN ORTHO VS THIS AM WITH GREAT EFFORT. PT STILL HAVING DIFFICULTY STANDING FOR VERY LONG MOST OF THE TIME. PT WAS ABLE TO AMBULATE TO SHOWER USING FWW ON HER OWN. PT ABLE TO WASH HERSELF WITH SHELL MOLDER ASSISTING WHERE NEEDED. DR MCCABE AND DR ARORA TO THIS AM. EEG ORDERED AGAIN. TECH TO BE HERE THIS AFTERNOON AND PRESENTLY IN NOW. TECH REPORTED EEG WAS ORDERED ON WEEKEND, BUT NO ONE AVAILABLE AT THAT TIME. MAG RIDER ADMIN PER EMAR. TYLENOL GIVEN FOR C/O LOUISE EARLIER. PT REPORTED IT EFFECTIVE. PLEASANT AND CO-OP WITH CARE. CALL LT IN REACH.
--- NOTE | 2020-06-13 04:06 | NUR ---
SHIFT SUMMARY AOX4. TELE SB @58, BP 97/46-THEREFORE HELD ANGELES METOPROLOL & DIGOXIN. REPORTED 8/10 PAIN IN BACK, MEDICATED 1X c PERCOCET, PAIN LEVEL DECREASED TO 5/10. DENIES N/V OR DYSPNEA @REST. SPO2 >90% ON 3L O2. FINE CRACKLES HEARD IN BASES OF LUNGS. E/U RESPIRATIONS. CBG @HS WAS 323 GAVE 15U LANTUS PER ORDERS, WILL CHECK AM CBG. CALL LIGHT IN REACH. WCTM.
[2020-06-13 04:45] LABS: BASOPHILS ABSOLUTE AUTO 0.05 K/mm3 (0.00-0.23); BASOPHILS PERCENT AUTO 1 % (0-2); EOSINOPHILS PERCENT AUTO 6 % (0-6); Hematocrit 37.5 % (33.0-51.0); Hemoglobin 10.2 g/dL (11.5-16.0); IMMATURE GRAN ABSOLUTE AUTO 0.03 K/mm3 (0.00-0.10); IMMATURE GRAN PERCENT AUTO 0 % (0-1); LYMPHOCYTES ABSOLUTE AUTO 2.01 K/mm3 (0.84-5.20); LYMPHOCYTES PERCENT AUTO 28 % (21-46); MONOCYTES ABSOLUTE AUTO 0.56 K/mm3 (0.16-1.47); MONOCYTES PERCENT AUTO 8 % (4-13); Mean Corpuscular HGB 23.1 pg (26.0-34.0); Mean Corpuscular HGB Conc 27.2 g/dL (31.5-36.5); Mean Corpuscular Volume 85 fL (80-100); Mean Platelet Volume 11.1 fL (9.1-12.4); NEUTROPHILS ABSOLUTE AUTO 4.21 K/mm3 (1.96-9.15); NEUTROPHILS PERCENT AUTO 58 % (41-73); Platelet Count 364 K/mm3 (150-400); RDW Coefficient Variation 18.6 % (11.7-14.2); RDW Standard Deviation 57.6 fL (35.1-46.3); Red Blood Cell Count 4.41 M/mm3 (3.80-5.20); White Blood Cell Count 7.26 K/mm3 (4.00-11.30)
[2020-06-13 05:08] LABS: Calcium, Blood 7.3 mg/dL (8.5-10.1); Creatinine, Blood 1.83 mg/dL (0.40-1.00); Potassium, Blood 3.3 mmol/L (3.5-5.5)
[2020-06-13] MEDS ORDERED: MAG-OXIDE MAGN200 MG PO (11:39)
== END 2020-06-13 14:15 | disposition home health service (06) | DRG 641 ==
LOC: ER 17:19 → MEDS 17:20 → ER 20:52 → MEDS 23:18
PROVIDERS: Emergency Medicine; Family Medicine; ADMIT Internal Medicine
DX: E83.42 Hypomagnesemia (principal); N17.9 Acute kidney failure, unspecified; J84.9 Interstitial pulmonary disease, unspecified; L03.115 Cellulitis of right lower limb; L03.116 Cellulitis of left lower limb; Z20.828 Contact with and (suspected) exposure to other viral communicable diseases; E11.22 Type 2 diabetes mellitus with diabetic chronic kidney disease; N18.3 Chronic kidney disease, stage 3 (moderate); I48.91 Unspecified atrial fibrillation; E86.0 Dehydration; W19.XXXA Unspecified fall, initial encounter; E87.6 Hypokalemia; J44.9 Chronic obstructive pulmonary disease, unspecified; J84.10 Pulmonary fibrosis, unspecified; K21.9 Gastro-esophageal reflux disease without esophagitis; L40.9 Psoriasis, unspecified; R56.9 Unspecified convulsions; E86.9 Volume depletion, unspecified; Z87.891 Personal history of nicotine dependence; Z99.81 Dependence on supplemental oxygen; E88.09 Other disorders of plasma-protein metabolism, not elsewhere classified; F32.9 Major depressive disorder, single episode, unspecified; M81.0 Age-related osteoporosis without current pathological fracture; E03.9 Hypothyroidism, unspecified; I45.81 Long QT syndrome; Z91.81 History of falling
CPT/HCPCS: 36415; 70450; 71045; 80048; 80053; 80162; 81003; 82330; 82947; 83735; 85025; 93005; 93010; 94640; 94760; 95819; 97110; 97116; 97161; 97165; 97530; 99284-25; A9270; A9270-GY; J3475; J7030; P9046

== ENCOUNTER → 2020-10-03 | Outpatient (CLI) | payer OTHER ==
[~2020-10-03] MED LIST changes: +BUMETANIDE2 M2 PO; +CALCITRIOL0.25 MC4 PO; +EUTHYROX137 MCG PO; +FLUTICASONE PRO16 GM; +MAG-OXIDE MAGN200 MG PO; +REMERON15 MG PO; +ROPINIROLE HCL2 M1 PO; +TOPROL XL50 MG PO
[2020-10-03 17:58] LABS: Appearance, Urine Clear (Clear); Bilirubin, Urine Neg (Neg); Blood, Urine Neg (Neg); Color, Urine Yellow (P-Yellow); Glucose Qualitative, Urine Neg (Neg); Ketones, Urine Neg (Neg); Leukocyte Esterase, Urine 3+ (Neg); Nitrite, Urine Neg (Neg); Protein, Urine Neg (Neg); Specific Gravity, Urine 1.015 (1.003-1.022); Urobilinogen, Urine NORM (Normal)
[2020-10-03 18:24] LABS: Bacteria Rare /hpf; Red Blood Cells, Urine 0-2 /hpf (0-2); Squamous Epithelial Cells Rare /hpf (Few)
== END | disposition home or self-care (01) ==
LOC: LAB SHORT 17:17
PROVIDERS: Family Medicine
DX: N39.0 Urinary tract infection, site not specified (principal)
CPT/HCPCS: 81001; 87086

== ENCOUNTER 2021-02-22 14:01 | Inpatient (IN) | payer MEDICARE, OTHER ==
[~2021-02-22] VITALS: Ht 160 cm; Wt 86.6 kg
[~2021-02-22 14:01] MED LIST changes: -BUMETANIDE2 M2 PO; -CALCITRIOL0.25 MC4 PO; -FLUTICASONE PRO16 GM; -ROPINIROLE HCL2 M1 PO; -TOPROL XL50 MG PO
[2021-02-22 15:12] LABS: BASOPHILS ABSOLUTE AUTO 0.04 K/mm3 (0.00-0.23); BASOPHILS PERCENT AUTO 1 % (0-2); EOSINOPHILS ABSOLUTE AUTO 0.22 K/mm3 (0.00-0.68); EOSINOPHILS PERCENT AUTO 3 % (0-6); Hematocrit 32.3 % (33.0-51.0); Hemoglobin 8.8 g/dL (11.5-16.0); IMMATURE GRAN ABSOLUTE AUTO 0.09 K/mm3 (0.00-0.10); IMMATURE GRAN PERCENT AUTO 1 % (0-1); LYMPHOCYTES ABSOLUTE AUTO 0.89 K/mm3 (0.84-5.20); LYMPHOCYTES PERCENT AUTO 10 % (21-46); MONOCYTES ABSOLUTE AUTO 0.67 K/mm3 (0.16-1.47); MONOCYTES PERCENT AUTO 8 % (4-13); Mean Corpuscular HGB 23.5 pg (26.0-34.0); Mean Corpuscular HGB Conc 27.2 g/dL (31.5-36.5); Mean Corpuscular Volume 86 fL (80-100); Mean Platelet Volume 11.3 fL (9.1-12.4); NEUTROPHILS ABSOLUTE AUTO 6.66 K/mm3 (1.96-9.15); NEUTROPHILS PERCENT AUTO 78 % (41-73); NRBC ABSOLUTE 0.04 K/mm3 (0.00-0.02); NRBC Auto 0.5 /100 WBC (0.0-0.2); Platelet Count 439 K/mm3 (150-400); RDW Coefficient Variation 21.4 % (11.7-14.2); RDW Standard Deviation 64.3 fL (35.1-46.3); Red Blood Cell Count 3.75 M/mm3 (3.80-5.20); White Blood Cell Count 8.57 K/mm3 (4.00-11.30)
[2021-02-22 15:30] LABS: Troponin I <0.015 ng/mL (0.000-0.040)
[2021-02-22 15:47] LABS: Alanine Aminotransfer (ALT/SGP 24 U/L (12-78); Albumin, Blood 1.8 g/dL (3.4-5.0); Albumin/Globulin Ratio 0.4 (0.8-1.8); Alk Phos 295 U/L (50-136); Anion Gap 7 mmol/L (6-16); Aspartate Aminotrans (AST/SGOT 86 U/L (12-37); Bilirubin, Total 0.3 mg/dL (0.1-1.0); Blood Urea Nitrogen 106 mg/dL (8-24); Bun/Creatinine Ratio 52.2 (12.0-20.0); CO2, Blood 31 mmol/L (21-32); Calcium, Blood 8.1 mg/dL (8.5-10.1); Chloride, Blood 95 mmol/L (98-108); Creatinine, Blood 2.03 mg/dL (0.40-1.00); Globulin, Blood 4.7 g/dL (2.2-4.0); Glomerular Filtration Rate 26 (60-); Glucose, Blood 262 mg/dL (70-99); Potassium, Blood 5.5 mmol/L (3.5-5.5); Sodium, Blood 133 mmol/L (136-145); Total Protein, Blood 6.5 g/dL (6.4-8.2)
[2021-02-22 15:54] LABS: D-Dimer, Quantitative 0.46 mg/L FEU (0.00-0.52); International Normalized Ratio 1.44; Prothrombin Time Results 15.2 Sec (9.7-11.5)
[2021-02-22] MEDS ORDERED: ATOR10 PO (16:26)
[2021-02-22] MEDS ORDERED: FLUTICASONE PRO16 GM (16:26)
[2021-02-22] MEDS ORDERED: METO5 PO (16:27)
[2021-02-22] MEDS ORDERED: ROPINIROLE HCL2 M1 PO (16:27)
[2021-02-22] MEDS ORDERED: TOPROL XL50 MG PO (16:28)
[2021-02-22] MEDS ORDERED: BUMETANIDE2 M2 PO (16:35)
[2021-02-22] MEDS ORDERED: CALCITRIOL0.25 MC4 PO (16:35)
--- NOTE | 2021-02-22 19:53 | NUR ---
Pt has polst on file mars states DNR. Went to review with pt for admission. pt son at bedside. They were somewhat distraught to see me as i helped them when her . Son has moved in with pt to ep her. She relays theat past year she has been declining and lost over a hundred pounds. She sees doctor shahzad regularly and has chronic pain issues. She appears frail states not sleeping well. She is eating a little more now that son manages her food. She has chronic loose stools. Mathew follow for care planning. Did not adress polst as they wanted to talk. Will have admitting nurse review polst.
--- NOTE | 2021-02-22 20:39 | NUR ---
PATIENT IS A NEW ADMIT AT SHIFT CHANGE. DAY RN WAS GIVEN REPORT FROM ED RN PRIOR TO SHIFT CHANGE. PATIENT ALREADY IN BED FROM [facility]. AXOX 3 AND BEDREST. ON 4L O2 NC AND 3L O2 NC BASELINE. SON PRESENT FOR ADMIT AND LEFT AFTER ADMIT COMPLETE. PATIENT REPORTS HER THIS FALL 2019. SON REPORTS LIVING WITH HER IN HER APARTMENT. CBG 231 ON ADMIT. PSORIASIS HELGA AND BUE. DENIES PAIN AND N/V. SOB W/EXERTION. PATIENT AND SON ORIENTED TO ROOM AND CALL LIGHT SYSTEM. BED ALARM WITH HX OF FALLS. CALL LIGHT IN REACH.
--- NOTE | 2021-02-23 04:59 | NUR ---
SHIFT SUMMARY PATIENT HAD NO ACUTE CHANGES. AXOX 3 AND TWO PERSON ASSIST TO BSC. ON 4L O2 NC AND 3L O2 NC BASELINE. SOB WITH EXERTION. 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 PIV REMAINS INTACT. NS INFUSING AT 75 mL/HR. CBG 231. BLE AND BUE PSORIASIS. REPORTED BACK PAIN AND HOSPITALIST DR CHEUNG ORDERED PERCOCET 5/325 MG Q8 PRN. PATIENT FELL BACK TO SLEEP. BED ALARM FOR FALL RISK. CRYING AT TIMES. PATIENT THIS PAST FALL OF 2019. PATIENT REPORTS SON LIVES WITH HER AT THIS TIME. CALL LIGHT IN REACH. BED IN LOWEST POSITION. WILL CONTINUE TO MONITOR UNTIL DAY SHIFT NURSE ASSUMES CARE.
[2021-02-23 05:35] LABS: Albumin, Blood 1.8 g/dL (3.4-5.0); Albumin/Globulin Ratio 0.4 (0.8-1.8); Bilirubin, Total 0.2 mg/dL (0.1-1.0); Bun/Creatinine Ratio 45.9 (12.0-20.0); Creatinine, Blood 2.46 mg/dL (0.40-1.00); Globulin, Blood 4.2 g/dL (2.2-4.0); Potassium, Blood 4.2 mmol/L (3.5-5.5)
[2021-02-23 14:31] LABS: Bun/Creatinine Ratio 42.4 (12.0-20.0); Creatinine, Blood 2.64 mg/dL (0.40-1.00); Potassium, Blood 4.5 mmol/L (3.5-5.5)
[2021-02-23 17:33] LABS: Source, Urine Catheter
[2021-02-23 17:48] LABS: Appearance, Urine Hazy (Clear); Bilirubin, Urine Neg (Neg); Blood, Urine Neg (Neg); Color, Urine Yellow (P-Yellow); Glucose Qualitative, Urine Neg (Neg); Ketones, Urine Neg (Neg); Leukocyte Esterase, Urine 1+ (Neg); Nitrite, Urine Neg (Neg); Protein, Urine 2+ (Neg); Specific Gravity, Urine 1.015 (1.003-1.022); Urobilinogen, Urine NORM (Normal)
[2021-02-23 18:09] LABS: Amorphous Light (0-Heavy); Bacteria Few /hpf; Hyaline Casts 0-2 /lpf (0-2); Red Blood Cells, Urine 0-2 /hpf (0-2); Squamous Epithelial Cells Few /hpf (Few)
--- NOTE | 2021-02-23 19:14 | NUR ---
SHIFT SUMMARY: NO ACUTE CHANGES TO REPORT THIS SHIFT. PT A&O; CALM AND COOPERATIVE WITH CARE. NO C/O PAIN THIS SHIFT. TRIVEDI PLACED THIS SHIFT; PATENT & DRAINING; PT TOLERATED WELL. NEPHROLOGY (DR DEVLIN) CONSULTED THIS SHIFT; NEW ORDERS PLACED. O2 @ 4L; PT USES 3L @ HOME. GENTLE REHYDRATION CONTINUING. REPORT GIVEN TO ONCOMING RN.
[2021-02-24 04:59] LABS: Hematocrit 33.1 % (33.0-51.0); Hemoglobin 8.7 g/dL (11.5-16.0)
[2021-02-24 05:22] LABS: Albumin, Blood 1.8 g/dL (3.4-5.0); Anion Gap 6 mmol/L (6-16); Blood Urea Nitrogen 115 mg/dL (8-24); Bun/Creatinine Ratio 40.4 (12.0-20.0); CO2, Blood 30 mmol/L (21-32); Calcium, Blood 8.2 mg/dL (8.5-10.1); Chloride, Blood 100 mmol/L (98-108); Creatinine, Blood 2.85 mg/dL (0.40-1.00); Glomerular Filtration Rate 17 (60-); Glucose, Blood 180 mg/dL (70-99); Magnesium, Blood 1.8 mg/dL (1.6-2.4); Phosphorus, Blood 7.3 mg/dL (2.5-4.9); Potassium, Blood 4.4 mmol/L (3.5-5.5); Sodium, Blood 136 mmol/L (136-145)
--- NOTE | 2021-02-24 05:53 | NUR ---
PT IS A/O, WEAK WITH TRIVEDI CATH ON 4L OR VIA N/C. MEDICATED FOR BACK PAIN THIS SHIFT. DYSPHAGIA PRECAUTIONS, NO STRAW. DR DEVLIN CONSULTING.
--- NOTE | 2021-02-24 12:25 | NUR ---
Follow up PC visit to discuss code status. Pt is currently listed as a full code. Pt has a POLST on file from 2014 that states DNR. Discussed options with Margie. She states that she is unsure of what she wants to have done. She states "If there's a chance I would make it I would want it done (CPR)." Explained that staff have no way of knowing what the outcome might be during a resusitation event. She stated that she would like to talk to her son about it. Will plan to return when son visits with her later today to answer any questions and see if she can make a decision re: code status. She has no complaints at the time of my visit. She reports she was last fall and since that time her son, Vinod, has moved in with her to help care for her. She states he works outside the home as well and that she also has some caregivers [facility]. She is unsure of how many hours a week the caregivers come. She states that she has not had a hospital admission since Vinod moved in with her. Prior to his moving in, she reports that she was hospitalized about every 3 months. She has questions re: having her son become her paid caregiver. Will contact for assistance in answering this question. Will follow up with pt this afternoon when her son arrives.
[2021-02-24 14:35] LABS: Bun/Creatinine Ratio 38.9 (12.0-20.0); Calcium, Blood 8.7 mg/dL (8.5-10.1); Creatinine, Blood 2.93 mg/dL (0.40-1.00); Potassium, Blood 4.5 mmol/L (3.5-5.5)
--- NOTE | 2021-02-24 19:40 | NUR ---
SHIFT SUMMARY: NO ACUTE EVENTS TO REPORT THIS SHIFT. PT A&O; CALM AND COOPERATIVE WITH CARE. MEDICATED FOR R SHOULDER PAIN PER EMAR. ASPIRATION PRECAUTIONS REMAIN IN EFFECT. FLUIDS D/C'd; DIURESIS CONTINUING; TRIVEDI IN PLACE-PATENT & DRAINING; NEPHROLOGY FOLLOWING. REPORT GIVEN TO ONCOMING RN.
[2021-02-25 05:13] LABS: Hematocrit 38.1 % (33.0-51.0); Hemoglobin 9.9 g/dL (11.5-16.0)
[2021-02-25 05:36] LABS: Albumin, Blood 1.9 g/dL (3.4-5.0); Anion Gap 7 mmol/L (6-16); Blood Urea Nitrogen 120 mg/dL (8-24); Bun/Creatinine Ratio 38.3 (12.0-20.0); CO2, Blood 29 mmol/L (21-32); Calcium, Blood 8.6 mg/dL (8.5-10.1); Chloride, Blood 99 mmol/L (98-108); Creatinine, Blood 3.13 mg/dL (0.40-1.00); Glomerular Filtration Rate 16 (60-); Glucose, Blood 132 mg/dL (70-99); Phosphorus, Blood 7.9 mg/dL (2.5-4.9); Potassium, Blood 4.6 mmol/L (3.5-5.5); Sodium, Blood 135 mmol/L (136-145)
--- NOTE | 2021-02-25 06:12 | NUR ---
PT IS A/O, ON 3L O2 VIA N/C, CBG AC/HS, MEDICATED THIS SHIFT PER EMAR FOR R SHOULDER AND BACK PAIN, TRIVEDI CATH. PT DID NOT SLEEP WELL, REQUESTING BREATHING TX FOR SOB. ORDERED ECHO TODAY.
--- NOTE | 2021-02-25 17:00 | NUR ---
SHIFT SUMMARY PATIENT ALERT AND ORIENTED THIS SHIFT. PATIENT LETHARGIC THIS AM, STATES SHE SLEPT POORLY. PATIENT DENIES PAIN. PATIENT COOPERATIVE WITH CARE. NO ACUTE CHANGES THIS SHIFT. PATIENT CURRENTLY SITTING UP IN BED WATCHING TELEVISION, VISITING WITH SON.
--- NOTE | 2021-02-25 17:41 | NUR ---
Spiritual care note: Mrs. Roberts states that because her son, Vinod, moved in to care for her 8 months ago, she has not needed hospitalization. She appears quite frail. Prayer was appreciated. I spoke with pt and son about her code staus. We have a POLST on file that states DNR. However, this admission, she is Full Code. Vinod tells me that "us kids disagreed with her code status and changed it." When this was put to pt, she does not appear to understnad. she did ont state her preference, only saying she did not want to like her did. I advised the creation of new POLST reflecting current wishes and left a blank POLST with Vinod to further discuss with his mom. I will remain available.
[2021-02-26 05:10] LABS: Hemoglobin 9.6 g/dL (11.5-16.0)
[2021-02-26 05:40] LABS: Anion Gap 8 mmol/L (6-16); Blood Urea Nitrogen 136 mg/dL (8-24); Bun/Creatinine Ratio 36.3 (12.0-20.0); CO2, Blood 28 mmol/L (21-32); Calcium, Blood 8.7 mg/dL (8.5-10.1); Chloride, Blood 99 mmol/L (98-108); Creatinine, Blood 3.75 mg/dL (0.40-1.00); Glomerular Filtration Rate 13 (60-); Glucose, Blood 126 mg/dL (70-99); Magnesium, Blood 2.1 mg/dL (1.6-2.4); Potassium, Blood 5.1 mmol/L (3.5-5.5); Sodium, Blood 135 mmol/L (136-145)
--- NOTE | 2021-02-26 06:05 | NUR ---
PT IS A/O, ON 4L O2 VIA N/C, FREQUENT BREATHING TX THIS SHIFT, TRIVEDI CATH, 1-ASSIST TO BSC. MEDICATED THIS SHIFT PER EMAR FOR RIGHT SHOULDER AND BACK PAIN.
[2021-02-26 06:16] LABS: Phosphorus, Blood 8.5 mg/dL (2.5-4.9)
--- NOTE | 2021-02-26 09:07 | NUR ---
CODE SUMMARY PATIENT'S BP 85/[address] DEVLIN CALLED, NEW ORDER FOR MIDODRINE ORDERED. PATIENT'S O2 SAT 86, O2 INCREASED FROM 4L TO 6L, O2 SAT UP TO 95. O2 REDUCED TO 5L, PATIENT REMAINED AT 95. PATIENT MADE COMFORTABLE. UPON RETURNING FROM OBTAINING MEDICATIONS THE STUDENT NURSE CALLED THIS NURSE INTO THE ROOM. PATIENT SITTING WITH LEGS OVER THE EDGE OF THE BED, LEANING BACK, WITH MINOR CONVULSIVE LIKE BEHAVIOR. PATIENT PLACED BACK IN BED RAPID RESPONSE WAS CALLED. THE PATIENT WAS PLACED ON THE BED IT WAS NOTED THAT THE PATIENT WASN'T BREATHING AND A CODE BLUE WAS CALLED. SEE CODE NOTES.
--- NOTE | 2021-02-26 09:29 | NUR ---
Anabelle Rajan called. Arrived to room with Code Team performing CPR. Attempted multiple times to contact son and daughter. Left multiple messages with request for a return phone call. Pt has a POLST she and her son completed yesterday with CPR and no Intubation. Bedside RN Antolin had conversation with Pt and family yesterday with wishes to be made comfortable if CPR was not successful. Pt regains pulse and placed on comfort care. Pt shortly after. Daughter Ashlie returns phone call and speaks with Dr Mohr. This RN called Ashlie back and offered condolences. Offered emotional support and answered questions. Ash[place] requests for Pt to remain at the hospital until they arrive. Ashlie expresses appreciation of call and will request additional visit from Palliative Care when she arrives.
--- NOTE | 2021-02-26 18:37 | NUR ---
Spiritual care note: Present when family arrived this afternoon. Two dtrs, a son, and YENI. All tearful, but appropriate. They responded well to gentle bereavement veterans' counselor and prayer of commendation. Explained next steps at their request. Family expressed gratitude for compassionate care by [facility] staff.
== END 2021-02-26 08:23 | DRG 682 ==
LOC: ER 14:01 → MEDS 17:21
PROVIDERS: Emergency Medicine; Family Medicine; Internal Medicine Nephrology; Student in an Organized Health Care Education/Training Program; ADMIT Hospitalist
PROC: 5A12012 Performance of Cardiac Output, Single, Manual (ICD-10-PCS; principal; 2021-02-22)
DX: N17.9 Acute kidney failure, unspecified (principal); G92 Toxic encephalopathy; J96.21 Acute and chronic respiratory failure with hypoxia; I13.0 Hypertensive heart and chronic kidney disease with heart failure and stage 1 through stage 4 chronic kidney disease, or unspecified chronic kidney disease; E87.1 Hypo-osmolality and hyponatremia; I48.20 Chronic atrial fibrillation, unspecified; F32.9 Major depressive disorder, single episode, unspecified; Z51.5 Encounter for palliative care; M81.0 Age-related osteoporosis without current pathological fracture; E03.9 Hypothyroidism, unspecified; J84.10 Pulmonary fibrosis, unspecified; J44.9 Chronic obstructive pulmonary disease, unspecified; G25.81 Restless legs syndrome; E11.22 Type 2 diabetes mellitus with diabetic chronic kidney disease; E86.9 Volume depletion, unspecified; N18.30 Chronic kidney disease, stage 3 unspecified; E88.09 Other disorders of plasma-protein metabolism, not elsewhere classified; I95.9 Hypotension, unspecified; T50.2X5A Adverse effect of carbonic-anhydrase inhibitors, benzothiadiazides and other diuretics, initial encounter; N25.81 Secondary hyperparathyroidism of renal origin; I27.20 Pulmonary hypertension, unspecified; I46.9 Cardiac arrest, cause unspecified; D63.1 Anemia in chronic kidney disease; I08.1 Rheumatic disorders of both mitral and tricuspid valves; E87.5 Hyperkalemia; E66.9 Obesity, unspecified; L40.9 Psoriasis, unspecified; Z88.6 Allergy status to analgesic agent; Z88.1 Allergy status to other antibiotic agents; Z88.5 Allergy status to narcotic agent; Z88.8 Allergy status to other drugs, medicaments and biological substances; Z90.49 Acquired absence of other specified parts of digestive tract; Z87.891 Personal history of nicotine dependence; Z99.81 Dependence on supplemental oxygen; Z79.4 Long term (current) use of insulin; Z79.899 Other long term (current) drug therapy; Z79.01 Long term (current) use of anticoagulants; Z79.51 Long term (current) use of inhaled steroids; Z99.3 Dependence on wheelchair; Z68.30 Body mass index [BMI] 30.0-30.9, adult
CPT/HCPCS: 36415; 71045; 76770; 80048; 80053; 80069; 81001; 82947; 83735; 83880; 84484; 85014; 85018; 85025; 85379; 85610; 85730; 87086; 92610; 93005; 93010; 93306; 94640; 94760; 97162; 97166; 97530; 99285-25; A9270; J0330; J0881; J1940; J7030; J7120